=== PATIENT | male | born 1925 | race Caucasian/White ===

== ENCOUNTER 2016-11-05 11:12 | Inpatient (IN) | payer OTHER ==
--- NOTE | 2016-11-05 12:52 | DX ---
Right Ankle Series, 4 Views History: Pain following trauma. Findings: There is an oblique, mildly displaced fracture through the distal fibular diaphysis. Additi onally, there is a minimally displaced fracture of the medial malleolus. The ankle mortise is not wid ened. A definite posterior malleolar fracture is not seen. No radiopaque foreign body is identified. Impression: Bimalleolar fracture without widening of the ankle mortise.
--- NOTE | 2016-11-05 13:48 | EDPHY ---
H & P Stated Complaint: injured r ankle getting into car Source: Patient Exam Limitations: No limitations - Personal History Current Tetanus/Diphtheria Vaccine: Unsure Tetanus Vaccine Date: UNKNOWN - Medical/Surgical History Hx Asthma: No Hx Chronic Respiratory Disease: No Hx Diabetes: Yes Hx Cardiac Disease: Yes Hx Renal Disease: No Hx Cirrhosis: No Hx Alcoholism: No Hx HIV/AIDS: No Hx Splenectomy or Spleen Trauma: No Other PMH: cardiac stents/gout/appy/choly/hernias. HTN . blind in left eye. PE , prostate cancer, radiation - Family History Significant Family History: No pertinent family hx - Social History Smoking Status: Former smoker Time Seen by Provider: 11/05/16 13:18 HPI/ROS: CHIEF COMPLAINT: right ankle pain HISTORY OF PRESENT ILLNESS: 89-year-old male presents to the emergency department by ambulance with right ankle pain. Patient was getting into his daughter's car when his right ankle buckled. Patient states his daughter's car is elevated, he always kicks his left leg to get into the car, today after he kicked his left leg up his right leg buckled. He denies previous injury to this ankle, is unable to bear weight due to pain. Denies head strike, no neck pain, no numbness or tingling to this leg, denies other injuries. . REVIEW OF SYSTEMS: A comprehensive 10 point review of systems is otherwise negative aside from elements mentioned in the history of present illness. (Bharti Davies) - Physical Exam Exam: Physical Exam Gen: Alert and Oriented, NAD HEENT: moist mucous membranes NECK: No C-spine tenderness CV: regular rate and regular rhythm PULM: CTAB, no wheezes ABDOMEN: soft, non tender to palpation, BS present BACK: Nontender NEURO: Neurologically grossly intact EXTREMITIES: Right ankle with diffuse swelling, tenderness to palpation medially and laterally, 2+ pedal pulses, sensation intact to light touch, no tenderness to base of 5th metatarsal, no proximal fibula tenderness SKIN: no rash or break in skin on exposed skin PSYCH: answers questions appropriately. (Bharti Davies) Constitutional: Initial Vital Signs Temperature (C) 36.3 C 11/05/16 11:24 Heart Rate 75 11/05/16 11:24 Respiratory Rate 16 11/05/16 11:24 Blood Pressure 170/69 H 11/05/16 11:24 O2 Sat (%) 92 11/05/16 11:24 O2 Delivery Mode Room Air Allergies/Adverse Reactions: erythromycin base [From E-Mycin] Allergy (Intermediate, Verified 11/05/16 11:19) Diarrhea Home Medications: Medication Instructions Recorded Allopurinol [Allopurinol 300 MG 300 mg PO DAILY 09/13/16 (RX)] Carboxymethylcellulose 0.5% 1 drops EACHEYE Q2 PRN 09/13/16 [Refresh Plus Drops 0.5%] Hydroxyurea [Hydrea 500 mg (*)] 500 mg PO DAILY@1730 09/13/16 Ketorolac 0.5% [Acular 0.5% Opht 1 drop RTEYE TID 09/13/16 Drops (*)] Losartan Potassium [Cozaar 50 mg 50 mg PO BID 09/13/16 (*)] Melatonin [Melatonin 1 mg] 1 mg PO HS 09/13/16 Metoprolol Tartrate [Lopressor 50 75 mg PO BID 09/13/16 mg (*)] Mineral Oil/Petrolatum,White 1 bakari EACHEYE HS 09/13/16 [Genteal Pm Ointment] Sennosides/Docusate Sodium 2 each PO DAILY@1730 09/13/16 [Senokot-S] amLODIPine BESYLATE [Norvasc 2.5 2.5 mg PO BID 09/13/16 mg (*)] cycloSPORINE 0.05% [Restasis Opht 1 drop EACHEYE BID 09/13/16 Drops(*)] lamOTRIGine [Lamictal] 200 mg PO BID 09/13/16 prednisoLONE ACET 1% [Pred Forte 1 drops RTEYE Q4HRS WHILE AWAKE 09/13/16 1% (*)] Psyllium Husk (with Sugar) 1 each PO DAILY 11/05/16 [Metamucil Packet] Tretinoin 0.025% Cream 1 bakari TP HS PRN 11/05/16 Medical Decision Making - Diagnostics Imaging: Right ankle x-ray independently reviewed by me- Impression: Bimalleolar fracture without widening of the ankle mortise. Dictated By: Lavelle Steele MD (Bharti Davies) Procedures: A 3 way Ortho Glass was applied. After application of the splint, I returned and re-examined the patient. The splint was adequately immobilizing the joint. The patients circulation and sensation were intact distal to the splint. (Bharti Davies) ED Course/Re-evaluation: 89-year-old male with bimalleolar right ankle fracture. Patient has been placed in a splint. He is going to be admitted to the hospitalist for physical therapy and occupational therapy. Patient has an unsteady gait and I do not feel comfortable sending him home as he uses a walker at home. Patient will be hospitalized for PT and OT and likely subacute rehab facility. I have spoken with Dr. Matias Ly who accepts this admission. I have consulted with Orthopedics and spoken with Matilde Cullen about this patient. She reports she will look at the x-ray and decided they will consult on the patient in the emergency department or if they will see him outpatient. ( Bharti Davies) - Data Points Medications Given: Discontinued Medications Sodium Chloride (Ns) 500 mls @ 0 mls/hr IV ONCE ONE PRN Reason: As Directed Stop: 11/07/16 10:31 Last Admin: 11/07/16 09:00 Dose: 500 mls Pneumococcal 13-Valent Conj Vacc (Prevnar 13 Syringe) 0.5 ml IM .ONCE ONE Stop: 11/06/16 17:55 Last Admin: 11/06/16 20:37 Dose: 0.5 ml Prednisolone Acetate (Pred Forte 1%) 1 drops RTEYE Q4HRS WHILE AWAKE TOMMY Stop: 05/04/17 17:59 Last Admin: 11/06/16 12:05 Dose: Not Given Departure - Departure Disposition: [facility] Inpatient Acute Clinical Impression: Bimalleolar fracture of right ankle Condition: Fair
[2016-11-05] MEDS ORDERED: ACETAMINOPHEN 325 MG TAB ONE (16:50)
[2016-11-05] MEDS ORDERED: ZOLPIDEM TARTRATE 5 MG TAB PO PRN (16:51)
[2016-11-05] MEDS ORDERED: ACETAMINOPHEN 325 MG TAB PO PRN (16:51)
[2016-11-05] MEDS ORDERED: ONDANSETRON DISINTEGRATING 4 MG TAB PO PRN (16:51)
[2016-11-05] MEDS ORDERED: ONDANSETRON 4 MG/2 ML VIAL IVP PRN (16:51)
[2016-11-05] MEDS ORDERED: IBUPROFEN 200 MG TAB PO PRN (16:51)
[2016-11-05] MEDS ORDERED: CARBOXYMETHYLCELLULOSE 0.5% 0.4 ML DROPERETTE EACHEYE PRN (16:54)
[2016-11-05] MEDS ORDERED: TRETINOIN 0.025% TP PRN (16:54)
--- NOTE | 2016-11-05 16:57 | PDGENHP ---
History and Physical History and Physical: HISTORY AND PHYSICAL ADMISSION NOTE CC: right ankle pain after a fall HISTORY: This gentleman who has a history of gait instability and uses a walker was stepping into his daughter's van when he lost balance and fell out of the van twisting his right ankle. He had immediate pain in the right ankle was unable to bear weight or get up so paramedics were called and he was transported to the ER. He has been diagnosed with bimalleolar fracture. There was no lightheadedness dizziness stroke-like symptoms cardiac symptoms or other symptoms of illness at the time of his fall. He has not been feeling sick or ill with fevers or any other acute abnormalities lately. 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 FAMILY MEDICAL HISTORY: no related family medical history of concern at this time SOCIAL HISTORY: lives with his in a private home that requires at least 5 or 6 steps to get into the house Former smoker No alcohol use MEDICATIONS: these have been reconciled by the pharmacist in the electronic health record, I reviewed the list and ordered appropriate medicines at this time PHYSICAL EXAMINATION: Vital Signs: stable without fever Examination: General: alert, oriented, good mentation, relaxed Skin: warm, dry, good color, no rash HEENT: normal Neck: no mass or jvd Resps: relaxed Lungs: clear breath sounds Heart: regular, no murmur Abdomen: soft, nondistended, nontender, +BS, no mass Upper Extremities: normal Lower Extremities: his right foot and ankle are in a brace, the toes are warm with good color and capillary refill and sensation and he can wiggle them ; otherwise extremities show no edema, warm No Bleeding or bruising Neurologic: normal speech/language, normal coding director, no focal weakness IV site: looks normal RADIOLOGY STUDIES, I have personally reviewed the images and reviewed with the radiologist: bimalleolar fracture of the right ankle ASSESSMENT: # bimalleolar fracture of the right ankle # gait instability # Possible osteoporosis PLANS: - admission to hospital inpatient is patient will not be safe for home independent ambulation within 2 days - Dr. Cullen from Orthopedics has been notified by the ER the patient's admission - will way from recommendations from Dr. Cullen regarding management, for now will have the patient nonweightbearing on that right foot -Fall risk precaution measures -DVT prophylaxis measures - suspect he will need residential facility rehab
[2016-11-05] MEDS ORDERED: oxyCODONE IR 5 MG TAB ONE (17:54)
[2016-11-05] MEDS: oxyCODONE IR 5 MG TAB PO PRN ×2 (17:55→22:05)
[2016-11-05] MEDS: SENNOSIDES/DOCUSATE SODIUM TAB PO SCH (18:33)
[2016-11-05] MEDS: HYDROXYUREA 500 MG CAP PO SCH (18:33)
[2016-11-05] MEDS: prednisoLONE ACET 1% 5 ML OPHT.BTL RTEYE SCH ×2 (18:37→22:02)
[2016-11-05] MEDS: LOSARTAN POTASSIUM 50 MG TAB PO SCH (21:59)
[2016-11-05] MEDS: CYCLOSPORINE 0.05% 1 EACH BOX EACHEYE SCH (21:59)
[2016-11-05] MEDS: lamoTRIgine 100 MG TAB PO SCH (21:59)
[2016-11-05] MEDS: METOPROLOL TARTRATE 50 MG TAB PO SCH (22:00)
[2016-11-05] MEDS: MELATONIN 3 MG TAB PO SCH (22:00)
[2016-11-05] MEDS: PETROLATUM WHITE EACHEYE SCH (22:01)
[2016-11-05] MEDS: MINERAL OIL EACHEYE SCH (22:01)
[2016-11-05] MEDS: KETOROLAC 0.5% 5 ML OPHT.BTL RTEYE SCH (22:02)
[2016-11-06] MEDS: oxyCODONE IR 5 MG TAB PO PRN ×7 (01:56→20:34)
[2016-11-06 04:51] LABS: % IMMATURE GRANULYOCYTES 0.2 % (0.0-1.1); ABSOLUTE IMMATURE GRANULOCYTES 0.01 10^3/uL (0.00-0.10); ADD DIFF? NO; ADD MORPH? NO; ADD SCAN? NO; ATYPICAL LYMPHOCYTE FLAG 10 (0-99); FRAGMENT RBC FLAG 0 (0-99); HEMOGLOBIN 8.3 g/dL (13.7-17.5); LEFT SHIFT FLG 0 (0-99); LIPEMIA HEMOLYSIS FLAG 80 (0-99); MEAN CELL HEMOGLOBIN 28.8 pg (27.9-34.1); MEAN CELL HEMOGLOBIN CONCENTR. 30.7 g/dL (32.4-36.7); MEAN CELL VOLUME 93.8 fL (81.5-99.8); PLATELET CLUMPS FLAG 30 (0-99); PLATELET COUNT 144 10^3/uL (150-400); RED BLOOD CELL COUNT 2.88 10^6/uL (4.40-6.38); RED CELL DISTRIBUTION WIDTH 15.7 % (11.5-15.2)
[2016-11-06 05:17] LABS: ANION GAP 9 mEq/L (8-16); CALCIUM 8.7 mg/dL (8.5-10.4); CARBON DIOXIDE 25 mEq/l (22-31); CHLORIDE 107 mEq/L (97-110); GLOMERULAR FILTRATION RATE > 60; GLUCOSE 99 mg/dL (70-100); POTASSIUM 4.4 mEq/L (3.5-5.2); SODIUM 141 mEq/L (134-144)
[2016-11-06] MEDS: prednisoLONE ACET 1% 5 ML OPHT.BTL RTEYE SCH ×2 (06:03→12:05)
[2016-11-06] MEDS: ALLOPURINOL 300 MG TAB PO SCH (09:55)
[2016-11-06] MEDS: lamoTRIgine 100 MG TAB PO SCH ×2 (09:55→20:34)
[2016-11-06] MEDS: ENOXAPARIN 40 MG/0.4 ML SYR SC SCH (09:55)
[2016-11-06] MEDS: PSYLLIUM METAMUCIL 1 PKT PO SCH (09:55)
[2016-11-06] MEDS: KETOROLAC 0.5% 5 ML OPHT.BTL RTEYE SCH ×3 (09:55→20:43)
[2016-11-06] MEDS: LOSARTAN POTASSIUM 50 MG TAB PO SCH ×2 (09:58→20:37)
[2016-11-06] MEDS: CYCLOSPORINE 0.05% 1 EACH BOX EACHEYE SCH ×2 (09:58→20:42)
[2016-11-06] MEDS: METOPROLOL TARTRATE 50 MG TAB PO SCH ×2 (09:59→20:34)
[2016-11-06] MEDS: PREDNISOLONE ACET 1% RTEYE SCH ×4 (10:10→21:45)
--- NOTE | 2016-11-06 10:32 | GCON ---
[f rep st] CONSULTATION ORTHOPEDIC CONSULTATION. REASON FOR CONSULTATION: Evaluation of a right ankle fracture. HISTORY: The patient is an 89-year-old male with vision problems who was admitted for by ED for admit to a SNF, sustained a fall involving his right lower extremity. Has pain with walking. Denies any other injuries. Denies any numbness or tingling. PAST MEDICAL HISTORY: Please see H and P. PE:Pt pleasant and cooperative with exam. RLE:in splint, BCR and NVI, LABS: The patient has a low hematocrit. X-rays were reviewed, which show a minimally displaced right lateral malleolus fracture and a questionable medial malleolus fracture. ASSESSMENT AND PLAN: The patient is an 89-year-old male with a right bimalleolar ankle fracture, minimally displaced. With the patient's age and comorbidities, would recommend proceeding with nonoperative intervention. Would treat the patient with a splint. He can follow up in the orthopedic clinic in 1-2 weeks. /[id number]/MODL MTDD
--- NOTE | 2016-11-06 15:01 | HOSPPROG ---
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 *Meningioma *Known a 7 x 11 cm adrenal mass on the left Subjective: pain well controlled Objective: Vital Signs Temp Pulse Resp BP Pulse Ox 37.0 C 73 16 103/45 L 92 11/06/16 12:14 11/06/16 12:14 11/06/16 12:14 11/06/16 12:14 11/06/16 12:14 Laboratory Results 11/06/16 04:35 11/06/16 04:35 11/05/16 11/06/16 11/07/16 05:59 05:59 05:59 Intake Total 200 150 Output Total 50 100 Balance 150 50 - Physical Exam Constitutional: no apparent distress, appears nourished, not in pain Ears, Nose, Mouth, Throat: moist mucous membranes Cardiovascular: regular rate and rhythym Respiratory: no respiratory distress, no rales or rhonchi, clear to auscultation Gastrointestinal: normoactive bowel sounds, soft, non-tender abdomen, no palpable masses Skin: warm Musculoskeletal: other ( right ankle splinted) Neurologic: AAOx3 Psychiatric: interacting appropriately, not anxious, not encephalopathic, thought process linear ICD10 Worksheet Patient Problems: Problems Problem Status Diagnosed Acute renal insufficiency Acute Bimalleolar fracture of right ankle Acute Vomiting Acute Hyphema Acute 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
[2016-11-06] MEDS: HYDROXYUREA 500 MG CAP PO SCH (16:51)
[2016-11-06] MEDS: SENNOSIDES/DOCUSATE SODIUM TAB PO SCH (16:52)
[2016-11-06] MEDS ORDERED: PNEUMOC 13-VAL CONJ-DIP CRM/PF 0.5 ML SYR IM ONE ×2 (17:54→20:31)
[2016-11-06] MEDS: MELATONIN 3 MG TAB PO SCH (20:36)
[2016-11-06] MEDS: PETROLATUM WHITE EACHEYE SCH (20:42)
[2016-11-06] MEDS: MINERAL OIL EACHEYE SCH (20:42)
[2016-11-07 05:05] LABS: % IMMATURE GRANULYOCYTES 0.3 % (0.0-1.1); ABSOLUTE IMMATURE GRANULOCYTES 0.02 10^3/uL (0.00-0.10); ADD DIFF? NO; ADD MORPH? NO; ADD SCAN? NO; ATYPICAL LYMPHOCYTE FLAG 0 (0-99); FRAGMENT RBC FLAG 0 (0-99); HEMATOCRIT 26.4 % (40.0-51.0); HEMOGLOBIN 8.1 g/dL (13.7-17.5); LEFT SHIFT FLG 0 (0-99); LIPEMIA HEMOLYSIS FLAG 80 (0-99); MEAN CELL HEMOGLOBIN CONCENTR. 30.7 g/dL (32.4-36.7); MEAN CELL VOLUME 94.6 fL (81.5-99.8); MEAN PLATELET VOLUME 9.2 fL (8.7-11.7); PLATELET CLUMPS FLAG 10 (0-99); PLATELET COUNT 157 10^3/uL (150-400); RED BLOOD CELL COUNT 2.79 10^6/uL (4.40-6.38); RED CELL DISTRIBUTION WIDTH 15.7 % (11.5-15.2)
[2016-11-07] MEDS: oxyCODONE IR 5 MG TAB PO PRN ×3 (05:09→18:20)
[2016-11-07] MEDS: PREDNISOLONE ACET 1% RTEYE SCH ×5 (05:09→22:13)
[2016-11-07] MEDS ORDERED: CANN-EASE 2 GM TUBE TP ONE (05:17)
[2016-11-07 05:24] LABS: ALANINE AMINOTRANSFERASE 26 IU/L (21-72); ALBUMIN 3.1 g/dL (3.5-5.0); ALKALINE PHOSPHATASE 108 IU/L (38-126); ANION GAP 8 mEq/L (8-16); ASPARTATE AMINOTRANSFERASE 30 IU/L (17-59); BILIRUBIN,TOTAL 0.3 mg/dL (0.1-1.4); CALCIUM 8.4 mg/dL (8.5-10.4); CARBON DIOXIDE 23 mEq/l (22-31); CHLORIDE 107 mEq/L (97-110); GLOMERULAR FILTRATION RATE > 60; GLUCOSE 112 mg/dL (70-100); POTASSIUM 4.4 mEq/L (3.5-5.2); SODIUM 138 mEq/L (134-144); TOTAL PROTEIN 5.7 g/dL (6.3-8.2)
[2016-11-07] MEDS: PSYLLIUM METAMUCIL 1 PKT PO SCH (08:14)
[2016-11-07] MEDS: ENOXAPARIN 40 MG/0.4 ML SYR SC SCH (08:14)
[2016-11-07] MEDS: lamoTRIgine 100 MG TAB PO SCH ×2 (08:15→22:09)
[2016-11-07] MEDS: ALLOPURINOL 300 MG TAB PO SCH (08:15)
[2016-11-07] MEDS: METOPROLOL TARTRATE 50 MG TAB PO SCH ×2 (08:16→22:10)
[2016-11-07] MEDS: LOSARTAN POTASSIUM 50 MG TAB PO SCH ×2 (08:16→22:07)
[2016-11-07] MEDS: KETOROLAC 0.5% 5 ML OPHT.BTL RTEYE SCH ×3 (08:18→22:14)
[2016-11-07] MEDS: CYCLOSPORINE 0.05% 1 EACH BOX EACHEYE SCH ×2 (08:18→22:14)
[2016-11-07] MEDS ORDERED: NS 500 ML IV ONE (10:30)
[2016-11-07 15:33] VITALS: RESP 16
--- NOTE | 2016-11-07 15:57 | HOSPPROG ---
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 *Meningioma *Known a 7 x 11 cm adrenal mass on the left Subjective: no new complaints Objective: Vital Signs Temp Pulse Resp BP Pulse Ox 36.9 C 84 16 156/58 H 92 11/07/16 15:32 11/07/16 15:32 11/07/16 15:32 11/07/16 15:32 11/07/16 15:32 Laboratory Results 11/07/16 04:43 11/07/16 04:43 11/06/16 11/07/16 11/08/16 05:59 05:59 05:59 Intake Total 200 550 500 Output Total 50 375 Balance 150 175 500 - Physical Exam Constitutional: no apparent distress, appears nourished, not in pain Eyes: anicteric sclera, EOMI Ears, Nose, Mouth, Throat: moist mucous membranes, hearing normal, ears appear normal Cardiovascular: regular rate and rhythym, no murmur, rub, or gallop Respiratory: no respiratory distress Musculoskeletal: other ( right leg splinted) Neurologic: AAOx3 Psychiatric: interacting appropriately, not anxious, not encephalopathic, thought process linear ICD10 Worksheet Patient Problems: Problems Problem Status Diagnosed Acute renal insufficiency Acute Bimalleolar fracture of right ankle Acute Vomiting Acute Hyphema Acute 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
[2016-11-07 16:49] LABS: % SATURATION 5 % (20-55); TOTAL IRON BINDING CAPACITY 304 ug/dL (260-490)
[2016-11-07 17:16] LABS: FERRITIN - BCH 19.9 ng/mL (17.9-464.0)
[2016-11-07] MEDS: HYDROXYUREA 500 MG CAP PO SCH (18:06)
[2016-11-07] MEDS: SENNOSIDES/DOCUSATE SODIUM TAB PO SCH (18:07)
[2016-11-07] MEDS: MELATONIN 3 MG TAB PO SCH (22:10)
[2016-11-07] MEDS: MINERAL OIL EACHEYE SCH (22:14)
[2016-11-07] MEDS: PETROLATUM WHITE EACHEYE SCH (22:14)
[2016-11-08 05:17] LABS: % IMMATURE GRANULYOCYTES 0.3 % (0.0-1.1); ABSOLUTE IMMATURE GRANULOCYTES 0.02 10^3/uL (0.00-0.10); ADD DIFF? NO; ADD MORPH? NO; ADD SCAN? NO; ATYPICAL LYMPHOCYTE FLAG 0 (0-99); FRAGMENT RBC FLAG 0 (0-99); HEMATOCRIT 24.6 % (40.0-51.0); HEMOGLOBIN 7.4 g/dL (13.7-17.5); LEFT SHIFT FLG 0 (0-99); LIPEMIA HEMOLYSIS FLAG 80 (0-99); MEAN CELL HEMOGLOBIN 28.6 pg (27.9-34.1); MEAN CELL HEMOGLOBIN CONCENTR. 30.1 g/dL (32.4-36.7); PLATELET CLUMPS FLAG 0 (0-99); PLATELET COUNT 142 10^3/uL (150-400); RED BLOOD CELL COUNT 2.59 10^6/uL (4.40-6.38); RED CELL DISTRIBUTION WIDTH 15.9 % (11.5-15.2)
[2016-11-08 05:20] LABS: ANION GAP 6 mEq/L (8-16); CALCIUM 8.6 mg/dL (8.5-10.4); CARBON DIOXIDE 26 mEq/l (22-31); CHLORIDE 108 mEq/L (97-110); GLOMERULAR FILTRATION RATE > 60; GLUCOSE 109 mg/dL (70-100); POTASSIUM 4.6 mEq/L (3.5-5.2); SODIUM 140 mEq/L (134-144)
[2016-11-08] MEDS: PREDNISOLONE ACET 1% RTEYE SCH ×5 (05:50→20:58)
[2016-11-08] MEDS: ALLOPURINOL 300 MG TAB PO SCH (08:55)
[2016-11-08] MEDS: lamoTRIgine 100 MG TAB PO SCH ×2 (08:55→20:28)
[2016-11-08] MEDS: ENOXAPARIN 40 MG/0.4 ML SYR SC SCH (08:56)
[2016-11-08] MEDS: CYCLOSPORINE 0.05% 1 EACH BOX EACHEYE SCH ×2 (08:56→20:23)
[2016-11-08] MEDS: PSYLLIUM METAMUCIL 1 PKT PO SCH (08:56)
[2016-11-08] MEDS: KETOROLAC 0.5% 5 ML OPHT.BTL RTEYE SCH ×3 (08:56→20:41)
[2016-11-08] MEDS: METOPROLOL TARTRATE 50 MG TAB PO SCH ×2 (08:59→20:24)
[2016-11-08] MEDS: LOSARTAN POTASSIUM 50 MG TAB PO SCH ×2 (09:00→20:27)
[2016-11-08] MEDS ORDERED: diphenhydrAMINE 25 MG CAP PO PRN (09:57)
[2016-11-08] MEDS: CETIRIZINE 10 MG TAB PO SCH (11:47)
[2016-11-08] MEDS: oxyCODONE IR 5 MG TAB PO PRN ×2 (11:47→20:59)
[2016-11-08] MEDS: FLUTICASONE NASAL 120 SPRAYS/16 GM MDI EACHNARE SCH (11:48)
[2016-11-08 14:14] LABS: COLOR YELLOW; LEUKOCYTE ESTERASE,URINE NEGATIVE (NEGATIVE); NITRITE,URINE NEGATIVE (NEGATIVE)
--- NOTE | 2016-11-08 16:32 | HOSPPROG ---
Hospitalist Progress Note Assessment/Plan: 89 yo M pw fall and resultant right ankle fracture # right ankle fx: evaluated by ortho and felt to be non operative, patient to be NWB on that side. Given his general deconditioning and baseline gait instability this has led to his being unsafe to ambulate without significant assistance. Will need pt/ot and snf after dc # anemia: has had fairly significant decline in the last several months, stable since admission w/o e/o bleeding. Iron studies c/w iron deficiency, would recommend colonoscopy as an OP if he is amenable, supplemental iron. # deconditioning: with generalized decline and difficulty ambulating, will need snf # h/o PE/DVT: s/p IVC filter, felt to be poor candidate for AC # acute on chronic respiratory failure: patient notes that at baseline he uses oxygen at home "as needed" and at night, currently in the low 90s on 2L, worse in the setting of immobility and atelectasis # chronic copd: without e/o exacerbation at this time # chronic medical issues: hx of CAD, gout, HTN, meningioma, prostate cancer # adrenal mass: stable # dispo: IP status, patient will need snf Patient new to my care. Old records reviewed and summarized as above. Further history obtained from patients daughter on the phone. Care plan reviewed with CM. Subjective: no signficant overnight events, patient currently feeling a bit better though still is unable to walk independently given inability to bear weight on right ankle Objective: Vital Signs Temp Pulse Resp BP Pulse Ox 36.8 C 70 16 109/52 L 91 L 11/08/16 15:19 11/08/16 15:19 11/08/16 15:19 11/08/16 15:19 11/08/16 15:19 Laboratory Results 11/08/16 04:51 11/08/16 04:51 11/07/16 11/08/16 11/09/16 05:59 05:59 05:59 Intake Total 550 1300 500 Output Total 375 500 200 Balance 175 800 300 awake alert nad anicteric, left eye cloudy and with ptosis op clear rrr no mrg cta soft nt nd no cce warm dry well perfused oriented appropriate - Time Spent With Patient Time Spent with Patient: greater than 35 minutes Time Spent with Patient: Greater than 35 minutes spent on this patients care, greater than 50% of time spent counseling, educating, and coordinating care regarding the above mentioned plan. 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
[2016-11-08] MEDS: SENNOSIDES/DOCUSATE SODIUM TAB PO SCH (16:44)
[2016-11-08] MEDS: HYDROXYUREA 500 MG CAP PO SCH (16:44)
[2016-11-08] MEDS: MELATONIN 3 MG TAB PO SCH (20:27)
[2016-11-09] MEDS: MINERAL OIL EACHEYE SCH (01:11)
[2016-11-09] MEDS: PETROLATUM WHITE EACHEYE SCH (01:11)
[2016-11-09 06:54] LABS: % IMMATURE GRANULYOCYTES 0.3 % (0.0-1.1); ABSOLUTE IMMATURE GRANULOCYTES 0.02 10^3/uL (0.00-0.10); ADD DIFF? NO; ADD MORPH? YES; ADD SCAN? NO; ANION GAP 8 mEq/L (8-16); ATYPICAL LYMPHOCYTE FLAG 0 (0-99); CALCIUM 8.6 mg/dL (8.5-10.4); CARBON DIOXIDE 23 mEq/l (22-31); CHLORIDE 109 mEq/L (97-110); CREATININE 1.1 mg/dL (0.7-1.3); GLOMERULAR FILTRATION RATE > 60; GLUCOSE 101 mg/dL (70-100); HEMATOCRIT 25.9 % (40.0-51.0); HEMOGLOBIN 7.8 g/dL (13.7-17.5); LEFT SHIFT FLG 0 (0-99); LIPEMIA HEMOLYSIS FLAG 80 (0-99); MEAN CELL HEMOGLOBIN 28.8 pg (27.9-34.1); MEAN CELL HEMOGLOBIN CONCENTR. 30.1 g/dL (32.4-36.7); MEAN CELL VOLUME 95.6 fL (81.5-99.8); MEAN PLATELET VOLUME 9.2 fL (8.7-11.7); PLATELET CLUMPS FLAG 10 (0-99); PLATELET COUNT 191 10^3/uL (150-400); POTASSIUM 4.8 mEq/L (3.5-5.2); RED BLOOD CELL COUNT 2.71 10^6/uL (4.40-6.38); RED CELL DISTRIBUTION WIDTH 15.9 % (11.5-15.2); SODIUM 140 mEq/L (134-144)
[2016-11-09 07:06] LABS: FRAGMENT RBC FLAG 110 (0-99)
[2016-11-09] MEDS: PREDNISOLONE ACET 1% RTEYE SCH ×2 (07:32→09:08)
[2016-11-09 07:47] LABS: HYPOCHROMIA 1+; MACROCYTES 1+; PLATELET ESTIMATE ADEQUATE (ADEQ)
[2016-11-09 07:49] VITALS: BP 137/58; TEMP 98.6; O2SAT 91
[2016-11-09] MEDS: lamoTRIgine 100 MG TAB PO SCH (09:09)
[2016-11-09] MEDS: METOPROLOL TARTRATE 50 MG TAB PO SCH (09:09)
[2016-11-09] MEDS: LOSARTAN POTASSIUM 50 MG TAB PO SCH (09:10)
[2016-11-09] MEDS: CETIRIZINE 10 MG TAB PO SCH (09:10)
[2016-11-09] MEDS: ALLOPURINOL 300 MG TAB PO SCH (09:10)
[2016-11-09] MEDS: CYCLOSPORINE 0.05% 1 EACH BOX EACHEYE SCH (09:11)
[2016-11-09] MEDS: ENOXAPARIN 40 MG/0.4 ML SYR SC SCH (09:12)
[2016-11-09] MEDS: KETOROLAC 0.5% 5 ML OPHT.BTL RTEYE SCH (09:12)
[2016-11-09 09:13] VITALS: PULSE 77
[2016-11-09] MEDS: PSYLLIUM METAMUCIL 1 PKT PO SCH (09:13)
[2016-11-09] MEDS: FLUTICASONE NASAL 120 SPRAYS/16 GM MDI EACHNARE SCH (09:13)
[2016-11-09] MEDS: oxyCODONE IR 5 MG TAB PO PRN (09:21)
[2016-11-09] MEDS ORDERED: LACTULOSE 20 GM/30 ML UDCUP PO PRN (09:26)
[2016-11-09] MEDS ORDERED: MAGNESIUM HYDROXIDE 30 ML UDCUP PO PRN (09:26)
[2016-11-09] MEDS ORDERED: BISACODYL 10 MG SUPP PR PRN (09:26)
[2016-11-09] MEDS ORDERED: POLYETHYLENE GLYCOL 3350 17 GM PKT PO PRN (09:26)
--- NOTE | 2016-11-09 10:10 | PDIAF ---
- Diagnosis Code Status: Full Code - Medication Management Discharge Medications: Medications to Continue on Transfer Acetaminophen [Tylenol 325mg (*)] 650 mg PO Q4HRS PRN #0 tab 11/09/16 [Last Taken Unknown] Allopurinol [Allopurinol 300 MG (RX)] 300 mg PO DAILY #0 tab 11/09/16 [Last Taken Unknown] Carboxymethylcellulose 0.5% [Refresh Plus Drops 0.5%] 1 bakari EACHEYE Q2 PRN #0 droperette 11/09/16 [Last Taken Unknown] Cetirizine [ZyrTEC 10 mg (*)] 10 mg PO DAILY #0 tab 11/09/16 [Last Taken Unknown ] Fluticasone Nasal [Flonase Nasal [place]] 1 sprays EACHNARE DAILY #0 mdi 11/09/16 [Last Taken Unknown] Hydroxyurea [Hydrea 500 mg (*)] 500 mg PO DAILY@1730 #0 cap 11/09/16 [Last Taken Unknown] Ketorolac 0.5% [Acular 0.5% Opht Drops (*)] 1 drops RTEYE TID #0 opht.btl [Last Taken Unknown] Losartan Potassium [Cozaar 50 mg (*)] 50 mg PO BID #0 tab 11/09/16 [Last Taken Unknown] Melatonin [Melatonin 3 MG (*)] 1.5 mg PO HS #0 tab 11/09/16 [Last Taken Unknown] Metoprolol Tartrate [Lopressor 50 mg (*)] 75 mg PO BID #0 tab 11/09/16 [Last Taken Unknown] Mineral Oil/Petrolatum,White [Genteal Pm Ointment] 1 bakari EACHEYE HS 11/09/16 [ Last Taken Unknown] Ondansetron Odt [Zofran Odt 4 mg (*)] 4 mg PO Q4HRS PRN #0 tab 11/09/16 [Last Taken Unknown] Psyllium Seed [Metamucil (*)] 1 each PO DAILY #0 pkt 11/09/16 [Last Taken Unknown] Sennosides/Docusate Sodium [Senokot-S] 1 - 2 tab PO BID #0 tab 11/09/16 [Last Taken Unknown] Sennosides/Docusate Sodium [Senokot-S] 2 tab PO DAILY@1730 #0 tab 11/09/16 [ Last Taken Unknown] Tretinoin 0.025% Cream 1 bakari TP HS PRN 11/09/16 [Last Taken Unknown] Zolpidem Tartrate [Ambien 5MG (*)] 5 mg PO HS PRN #0 tab 11/09/16 [Last Taken Unknown] amLODIPine BESYLATE [Norvasc 2.5 mg (*)] 2.5 mg PO BID #0 tab 11/09/16 [Last Taken Unknown] cycloSPORINE 0.05% [Restasis Opht Drops(*)] 1 drop EACHEYE BID #0 box 11/09/16 [ Last Taken Unknown] diphenhydrAMINE [Benadryl 25 MG (*)] 25 mg PO HS PRN #0 cap 11/09/16 [Last Taken Unknown] lamoTRIgine [LamICTAL 100 MG (*)] 200 mg PO BID #0 tab 11/09/16 [Last Taken Unknown] oxyCODONE IR [Oxycodone Ir (*)] 5 - 10 mg PO Q3HRS PRN #0 tab 11/09/16 [Last Taken Unknown] prednisoLONE ACET 1% [Pred Forte 1% (*)] 0 drops RTEYE Q4HRS WHILE AWAKE #0 opht.btl 11/09/16 [Last Taken Unknown] Discharge Medications: Refer to the Discharge Home Medication list for PRN reason. - Orders Services needed: Registered Nurse, Certified Litigation Paralegal, Physical Therapy, Occupational Therapy Diet Recommendation: no restrictions on diet Activity/Weight Bearing Restrictions: Non weight bearing on right ankle until follow up with orthopedics - Labs/Radiology BMP Date: 11/12/16 CBC Date: 11/12/16 - Follow Up Care Current Providers and Referrals: Margarito Cullen MD [Medical Doctor] - (follow up 1-2 weeks) Elisabeth Maguire MD [Primary Care Provider] -
--- NOTE | 2016-11-09 10:10 | PDDCSUM ---
Discharge Summary Discharge Summary: Dates of service 11/05-11/09/16 Discharge dx: # right ankle fracture # acute on chronic anemia # gait instability/deconditioning # chronic copd # h/o PE/DVT # left eye blindness Hospital course by problem: # right ankle fx: evaluated by ortho and felt to be non operative, patient to be NWB on that side. cont pt/ot at snf # anemia: c/w iron deficiency and lower than baseline w/o e/o bleeding. Iron studies c/w iron deficiency, would recommend colonoscopy as an OP if he is amenable # deconditioning: with generalized decline and difficulty ambulating, will need snf # h/o PE/DVT: s/p IVC filter, felt to be poor candidate for AC # acute on chronic respiratory failure: continues on 2L of o2, he previously was intermittently not compliant with oxygen # chronic copd: without e/o exacerbation at this time # chronic medical issues: hx of CAD, gout, HTN, meningioma, prostate cancer # adrenal mass: stable Dc to snf F/u with ortho and pcp after dc from snf meds: see EHR > 35 min spent in dc of patient, more than half in face to face evaluation
[2016-11-09] MEDS ORDERED: SENNOSIDES/DOCUSATE SODIUM TAB PO SCH (21:00)
== END 2016-11-09 14:13 | DRG 562 ==
LOC: EDUNIT# → OBSVTOIN 16:51 → F3N 18:01
PROVIDERS: ADMIT Internal Medicine; ATTEND Internal Medicine
PROC: 2W3QX1Z Immobilization of Right Lower Leg using Splint (ICD-10-PCS; principal; 2016-11-05)
DX: S82.841A Displaced bimalleolar fracture of right lower leg, initial encounter for closed fracture (principal); J96.20 Acute and chronic respiratory failure, unspecified whether with hypoxia or hypercapnia; J44.9 Chronic obstructive pulmonary disease, unspecified; I25.10 Atherosclerotic heart disease of native coronary artery without angina pectoris; D53.9 Nutritional anemia, unspecified; H54.42 Blindness, left eye, normal vision right eye; V48.4XXA Person boarding or alighting a car injured in noncollision transport accident, initial encounter; Z85.46 Personal history of malignant neoplasm of prostate; Z86.718 Personal history of other venous thrombosis and embolism; Z86.711 Personal history of pulmonary embolism; Z95.5 Presence of coronary angioplasty implant and graft; Z99.81 Dependence on supplemental oxygen
CPT/HCPCS: 97110-GO; 97161-GP; 97165-GO; 97530-GP; 97535-GO; G0009; G8978-GP-CL; G8979-GP-CK; G8987-GO-CL; G8988-GO-CK; J1650

== ENCOUNTER 2017-01-04 12:03 | Inpatient (IN) | payer OTHER ==
--- NOTE | 2017-01-04 12:05 | EDPHY ---
H & P HPI/ROS: CHIEF COMPLAINT: Chest pain, elevated troponin. HISTORY OF PRESENT ILLNESS: The patient is an 89-year-old male with a history of CAD who presents from [facility] for elevated troponin. He reports that a few times during the night he was awoken by coughing spells and chest pain. He woke up with coughing, and then had pain in his right shoulder and chest after the coughing subsided. He was able to sleep intermittently throughout the night and is unsure if the chest pain never went away. This morning at 0400 he developed epigastric pain and pain radiating from shoulder to shoulder. This pain did subside after nitroglycerin. He tried to do physical therapy but got short of breath and dizzy. Blood work was drawn. He was sent here after his Troponin returned 1.63. ASA given. He has no chest pain or shortness of breath on arrival. No dizziness, lightheadedness, nausea, vomiting, abdominal pain. REVIEW OF SYSTEMS: A complete 10-point review of systems was performed and is negative except for those items mentioned in the HPI. Past Medical/Surgical History: CAD, atherosclerosis, angina. Social History: Lives at [facility]. Physical Exam: General Appearance: Alert, pleasant Eyes: Pupils equal and round, no conjunctival pallor or injection ENT, Mouth: Mucous membranes moist Neck: Normal inspection Respiratory: Rales at both bases Cardiovascular: Regular rate and rhythm Gastrointestinal: Abdomen is soft and non-tender Neurological: A&O, nonfocal exam Skin: Warm and dry, no rash Extremities: Nontender, no pedal edema Psychiatric: Mood and affect normal Constitutional: Initial Vital Signs Temperature (C) 36.5 C 01/04/17 12:03 Heart Rate 68 01/04/17 12:03 Respiratory Rate 23 H 01/04/17 12:03 Blood Pressure 102/66 01/04/17 12:03 O2 Sat (%) 98 01/04/17 12:03 O2 Delivery Mode Room Air Allergies/Adverse Reactions: erythromycin base [From E-Mycin] Allergy (Intermediate, Verified 01/04/17 12:10) Diarrhea Home Medications: Medication Instructions Recorded Acetaminophen [Tylenol 325mg (*)] 650 mg PO Q4HRS PRN #0 tab 11/09/16 Allopurinol [Allopurinol 300 MG 300 mg PO DAILY #0 tab 11/09/16 (RX)] Fluticasone Nasal [Flonase Nasal 1 sprays EACHNARE DAILY #0 mdi 11/09/16 [place]] Psyllium Seed [Metamucil (*)] 1 each PO DAILY #0 pkt 11/09/16 cycloSPORINE 0.05% [Restasis Opht 1 drop EACHEYE BID #0 box 11/09/16 Drops(*)] lamoTRIgine [LamICTAL 100 MG (*)] 200 mg PO BID #0 tab 11/09/16 Albuterol [Proventil Neb] 3 ml IH Q6HRS PRN 01/04/17 Benzonatate [Tessalon Pearles (RX)] 100 mg PO Q8HRS 01/04/17 Carboxymethylcellulose 1% [Refresh 1 drop EACHEYE Q2HRS PRN 01/04/17 Celluvisc (*)] Ferrous Sulfate [Ferrous Sulf 325 325 mg PO BID 01/04/17 MG (*)] Herbals/Supplements -Info Only 1 ea PO DAILY 01/04/17 Hydroxyurea [Hydrea 500 mg (*)] 500 mg PO DAILY@1700 01/04/17 Ketorolac 0.5% [Acular 0.5% Opht 1 drops RTEYE TID 01/04/17 Drops (*)] Melatonin [Melatonin 3 MG (*)] 3 mg PO HS 01/04/17 Metoprolol Tartrate [Lopressor 50 75 mg PO BID 01/04/17 mg (*)] Mineral Oil/Petrolatum,White 1 bakari EACHEYE HS 01/04/17 [Genteal Pm Ointment] Nitroglycerin [Nitrostat 0.4 mg 0.4 mg SL Q5M PRN 01/04/17 (*)] Ondansetron Odt [Zofran Odt 4 mg 4 mg PO Q4HRS PRN 01/04/17 (*)] Polyethylene Glycol 3350 [Miralax 17 gm PO DAILY PRN 01/04/17 17 gm (*)] Sennosides/Docusate Sodium 2 tab PO DAILY@1700 01/04/17 [Senokot-S] Sodium Cl Nasal [Burt [place] (*)] 1 spray EACHNARE DAILY@05,,,01/04/17 Tamsulosin HCl [Flomax 0.4 MG (*)] 0.4 mg PO HS 01/04/17 guaiFENesin [Mucinex 600 MG (*)] 1,200 mg PO BID@,01/04/17 oxyCODONE IR [Oxycodone Ir (*)] 5 mg PO Q3HRS PRN 01/04/17 prednisoLONE ACET 1% [Pred Forte 1 drops RTEYE 5XD@05,10,13,18,21 01/04/17 1% (*)] Medical Decision Making - Diagnostics EKG Interpretation: EKG interpreted by me reveals first-degree AV block, left axis deviation, nonspecific T wave abnormalities. Interpretation: abnormal EKG Imaging: Chest x-ray independently reviewed by me reveals bibasilar atelectasis. ED Course/Re-evaluation: 89-year-old male with a history of CAD and angina presents via EMS for acute coronary syndrome. Stat EKG reveals no evidence of dysrhythmia or ischemia. He is not short of breath on presentation and he has no chest pain. An IV was established and labs ordered. stat EKG reveals no evidence of ischemia or dysrhythmia. Troponin elevated at 1.7. BNP 00368. Echocardiogram ordered. D-dimer elevated at 0.88. 1254: Consulted with hospitalist. Dr. Angulo accepts admission. 1256: Consulted with [facility]. They will consult on the patient. I independently viewed the patient's chest x-ray on the PACS system. My interpretation: ongoing elevated left hemidiaphragm. no acute cardiopulmonary disease. See Imaging section for radiologist report. Elevated D-dimer noted. I feel that this presentation much more likely an acute coronary syndrome rather than secondary to pulmonary embolism. CT imaging deferred. The patient was asymptomatic throughout his emergency department stay. oncology physician revealed normal sinus rhythm throughout. Differential Diagnosis: The differential diagnosis for the patient's chest pain included but was not limited to myocardial ischemia, pulmonary embolus, chest wall pain, pleural inflammation, and pulmonary infectious causes. - Data Points Laboratory Results: Laboratory Results 01/04/17 12:00 01/04/17 12:00 Medications Given: Discontinued Medications Aspirin Buffered (Aspirin Ec) 325 mg PO ONCALL ONE Stop: 01/05/17 06:01 Last Admin: 01/05/17 11:38 Dose: Not Given Diazepam (Valium) 5 mg PO ONCALL ONE Stop: 01/05/17 06:01 Last Admin: 01/05/17 11:39 Dose: Not Given Diphenhydramine HCl (Benadryl) 25 mg PO ONCALL ONE Stop: 01/05/17 06:01 Last Admin: 01/05/17 11:39 Dose: Not Given Heparin Sodium (Porcine) (Heparin Injection) 0 unit IVP PRN PRN; Protocol PRN Reason: Bolus per protocol Stop: 07/03/17 15:00 Last Admin: 01/04/17 16:12 Dose: 5,600 units Heparin Sodium (Porcine) (Heparin 50 Units/Ml (Premix)) 500 mls @ 0 mls/hr IV CONT TOMMY; Per Protocol PRN Reason: Protocol Stop: 07/03/17 15:29 Last Admin: 01/05/17 07:37 Dose: 500 mls Metoprolol Tartrate (Lopressor) 75 mg PO BID [facility] Stop: 07/03/17 20:59 Last Admin: 01/05/17 09:30 Dose: Not Given Miscellaneous Medication (Mineral Oil/Petrolatum,White [Genteal Pm Ointment]) 1 bakari EACHEYE [facility] Stop: 07/03/17 20:59 Last Admin: 01/04/17 22:05 Dose: Not Given Prasugrel (Effient) 60 mg PO ONCE ONE Stop: 01/05/17 10:55 Last Admin: 01/05/17 11:39 Dose: Not Given Departure - Departure Disposition: [facility] Acute Clinical Impression: Acute coronary syndrome Condition: Fair Report Scribed for: Zaynab Oseguera Report Scribed by: Juan Daniel Anton Date of Report: 01/04/17 Time of Report: 12:05 Physician Review and Approval Statement: 01/04/17 12:13 Portions of this note were transcribed by a back office medical assistant. I personally performed a history, physical exam, medical decision making, and confirmed accuracy of information the transcribed note.
--- NOTE | 2017-01-04 12:11 | CPEKG ---
Heart Rate: 64 RR Interval: 938 P-R Interval: 403 QRSD Interval: 98 QT Interval: 432 QTC Interval: 446 P [place]: 0 QRS [place]: -37 T Wave [place]: 97 EKG Severity - ABNORMAL ECG - EKG Impression: SINUS RHYTHM EKG Impression: FIRST DEGREE AV BLOCK EKG Impression: LEFT AXIS DEVIATION EKG Impression: NONSPECIFIC T ABNORMALITIES, ANT-LAT LEADS Electronically Signed By: Zaynab Oseguera 04-Jan-2017 13:43:52
[2017-01-04 12:24] LABS: % IMMATURE GRANULYOCYTES 0.2 % (0.0-1.1); ABSOLUTE IMMATURE GRANULOCYTES 0.01 10^3/uL (0.00-0.10); ADD DIFF? NO; ADD MORPH? YES; ADD SCAN? NO; ATYPICAL LYMPHOCYTE FLAG 10 (0-99); FRAGMENT RBC FLAG 10 (0-99); HEMATOCRIT 25.7 % (40.0-51.0); HEMOGLOBIN 7.8 g/dL (13.7-17.5); LEFT SHIFT FLG 0 (0-99); LIPEMIA HEMOLYSIS FLAG 80 (0-99); MEAN CELL HEMOGLOBIN 28.3 pg (27.9-34.1); MEAN CELL HEMOGLOBIN CONCENTR. 30.4 g/dL (32.4-36.7); MEAN CELL VOLUME 93.1 fL (81.5-99.8); MEAN PLATELET VOLUME 8.4 fL (8.7-11.7); PLATELET CLUMPS FLAG 0 (0-99); PLATELET COUNT 239 10^3/uL (150-400); RED BLOOD CELL COUNT 2.76 10^6/uL (4.40-6.38)
[2017-01-04 12:28] LABS: ANION GAP 12 mEq/L (8-16); CALCIUM 9.1 mg/dL (8.5-10.4); CARBON DIOXIDE 22 mEq/l (22-31); CHLORIDE 103 mEq/L (97-110); CREATININE 1.1 mg/dL (0.7-1.3); GLOMERULAR FILTRATION RATE > 60; GLUCOSE 116 mg/dL (70-100); POTASSIUM 4.5 mEq/L (3.5-5.2); SODIUM 137 mEq/L (134-144)
[2017-01-04 12:41] LABS: RED CELL DISTRIBUTION WIDTH 20.8 % (11.5-15.2)
[2017-01-04 13:10] LABS: HYPOCHROMIA 2+; MACROCYTES 1+; MICROCYTES 1+
[2017-01-04 13:11] LABS: PLATELET ESTIMATE ADEQUATE (ADEQ)
--- NOTE | 2017-01-04 14:16 | ECHO ---
[id number] + + [address] : : [place] [address] : : [phone] + + Adult Echocardiographic Report + ---------+ :Name: VALARIE TREJO BStudy Date: 01/04/2017 01:36 PM : : Hospital Admission Number: [id number] Locat ion: ER11: :: 1925 Gender: Male Height: 72 in : :Age: 89 yrs Race: WH,White Weight: 200 l b : :Reason For Study: evaluate cardiac function : : BSA: 2.1 mete rs2 : :History: CP, elev troponins : + ---------+ MMode/2D Measurements \T\ Calculations IVSd: 1.3 cm RVDd: 3.3 cm FS: 23.4 % Ao root diam: LVPWd: 0.99 cm LVIDd: 4.2 cm EDV(Teich): 3.7 cm LVIDs: 3.2 cm 77.7 ml ESV(Teich): 41.0 ml EF(Teich): 47.3 % LVLd ap4: 9.7 cm SV(MOD-sp4): EDV(MOD-sp4): 66.0 ml 165.0 ml LVLs ap4: 8.9 cm ESV(MOD-sp4): 99.0 ml EF(MOD-sp4): 40.0 % Normal Measurement Values: + + :LVIDd (3.5-5.7cm) IVSd (0.6-1.1cm) LVPWd (0.6-1.1cm) Aortic Root (2.0-3.7cm)Left Atrium (1.5-4.0cm): :LV Vol(d) (76-115ml) LV Vol(s) (29-48ml) Ejec Fraction (50-65%)PV Indra (0.6- 1.2m/s) TV Indra (0.4-1.0m/s) : :MV E Indra (0.8-1.0m/s)MV A Indra (0.3-1.0m/s)LVOT Indra (0.7-1.2m/s) Asc Ao Indra ( 0.9-1.8m/s) : + + Doppler Measurements \T\ Calculations MV E max indra: Ao V2 max: AI max indra: LV V1 max: 94.3 cm/sec 121.0 cm/sec 267.0 cm/sec 74.0 cm/sec MV A max indra: Ao max PG: AI max P.5 mmHg LV V1 max P.5 cm/sec 5.9 mmHg AI dec slope: 2.2 mmHg MV E/A: 2.3 167.0 cm/sec2 MV dec time: AI P1/2t: 468.3 msec 0.19 sec PA V2 max: TR max indra: 108.0 cm/sec 301.0 cm/sec PA max P.7 mmHgTR max P.2 mmHg RAP systole: 10.0 mmHg RVSP(TR): 46.2 mmHg Left Ventricle The left ventricle is normal in size. There is normal left ventricular wall thickness. Left ventricular systolic function is mild to moderately reduced. Ejection Fraction = 35-40%. Apical and mid to distal anteroseptal hypokinesis. Right Ventricle The right ventricle is normal in size and function. Atria The left atrial size is normal. Right atrial size is normal. A dilated inferior vena cava suggests increased right atrial pressure. Mitral Valve The mitral valve leaflets appear thickened, but open well. There is mild mitral annular calcification. There is no mitral valve stenosis. There is mild mitral regurgitation. Tricuspid Valve The tricuspid valve is normal in structure and function. There is no tricuspid stenosis. There is mild to moderate tricuspid regurgitation. Right ventricular systolic pressure is 46mmHg. There is Doppler evidence for mild to moderate pulmonary hypertension. Aortic Valve The aortic valve is trileaflet. There is mild aortic valve calcification. There is no aortic stenosis. Mild aortic regurgitation. Pulmonic Valve The pulmonic valve is normal in structure and function. Great Vessels The aortic root is normal size. Pericardium/Pleural There is no pericardial effusion. Conclusion A two-dimensional transthoracic echocardiogram with M-mode and Doppler was performed. Left ventricular systolic function is mild to moderately reduced. Ejection Fraction = 35-40%. Apical and mid to distal anteroseptal hypokinesis. There is mild mitral regurgitation. There is mild to moderate tricuspid regurgitation. Right ventricular systolic pressure is 46mmHg. There is Doppler evidence for mild to moderate pulmonary hypertension. Mild aortic regurgitation. Final Reading Physician: Loni Nick signed on 01/04/2017 02:15 PM Ordering Physician: TEE BUSTILLO Performed By: Liss Ramirez
[2017-01-04] MEDS ORDERED: ACETAMINOPHEN 325 MG TAB PO PRN ×3 (15:01→15:21)
[2017-01-04] MEDS ORDERED: ONDANSETRON DISINTEGRATING 4 MG TAB PO PRN ×2 (15:01→15:04)
[2017-01-04] MEDS ORDERED: ONDANSETRON 4 MG/2 ML VIAL IVP PRN (15:01)
[2017-01-04] MEDS ORDERED: HEPARIN 10,000 UNIT/10 ML MDV IVP PRN (15:01)
[2017-01-04] MEDS ORDERED: CARBOXYMETHYLCELLULOSE 1% 0.4 ML DROPERETTE EACHEYE PRN (15:04)
[2017-01-04] MEDS ORDERED: POLYETHYLENE GLYCOL 3350 17 GM PKT PO PRN (15:04)
[2017-01-04] MEDS ORDERED: TEMAZEPAM 15 MG CAP PO PRN (15:21)
--- NOTE | 2017-01-04 15:49 | GHP ---
[f rep st] HISTORY AND PHYSICAL DATE OF ADMISSION: 01/04/2017 CHIEF COMPLAINT: Chest pain, lightheaded, dizzy with an abnormal troponin. HPI: This is an 89-year-old gentleman who has a history of coronary artery disease. He had stent p laced in the circumflex in 2007 and 2012. His coronary angiogram showed widely patent vessels in De cember of this year. He actually was admitted and underwent a nuclear stress test that showed maco l function and no ischemia. Apparently he has been at [facility] recovering from a fractured ankle. He has been having a cough recently; however, today he had some epigastric pain to his shoulder wi th some lightheadedness. Blood was drawn at the assisted, and a troponin was 1.6. He was sent to the emergency room at [facility], and his troponin was repeated as 1. 7. His EKG showed no acute changes. He had increased BNP and echocardiogram today showed hypokines is of the distal anterior wall and apex which apparently is new. He denies any ongoing chest pain o r other issues. His hemoglobin is 7 which has been stable for the last few months. He denies any a ctive GI or bleeding. Apparently this has been known. He has been on ferrous sulfate. He has h ad no GI workup. In speaking to him, he has had some atypical migratory type chest pains which is d ifferent than the pain he had prior to his angiogram and stenting in 2007. He had no dye allergies with that. At 1 time, he did have a pulmonary emboli, was on Coumadin in the past. He did have constance e bleeding in his retina a year or so ago but nothing recent. He has not been on aspirin otherwise. He denies PND, orthopnea, palpitations, or syncope. HOME MEDICATIONS: No cardiac medications at this time. In the past, I had seen that he had been on beta blockers. EKG shows normal sinus rhythm with nonspecific intraventricular conduction delay without acute ische ashvin changes. PAST MEDICAL HISTORY: Includes Phil Bonnet syndrome, hyphema, pulmonary emboli. He has apparent ly a benign adrenal mass which is known. He has chronic anemia presumed iron deficient without etio logy. SOCIAL HISTORY: He has been living at [facility]. MEDICATIONS: See reconciliation form. PHYSICAL EXAMINATION: GENERAL APPEARANCE: He is resting comfortably in bed. He does appear somewh at pale but is alert and oriented x3. HEENT: Mouth, oropharynx were moist. CHEST: He had no palp able chest pain. LUNGS: Clear to auscultation. CARDIOVASCULAR: Regular rate and rhythm with a so ft systolic murmur. No JVD. HJR. ABDOMEN: Soft, nontender. MUSCULOSKELETAL: No edema. He had strong pulses in his wrists and his pedal region. ASSESSMENT: 1. Probable acute coronary syndrome. I did review his films from 2012, and he had large patent ves sels at that time and a negative nuclear stress test as recently as August 2016; however, a region al wall motion abnormality on echo most likely is new. Is undetermined time. He has been having so me atypical pains with a troponin of 1.7. He is seemingly stable at this time rhythm gibbs and hemod ynamically at this point. We discussed our options of conservative medical management versus invasi ve strategy. He has agreed to go with the invasive strategy. He does not have any allergies to dye that he knows of. He is not having any active bleeding. He was here seen with Dr. Angulo. At this point, we will begin him on beta blockers, heparinization tonight with catheterization in the m orning. 2. Anemia, probable iron deficiency from reading his past notes. The patient was to have an outpat ient workup; however, this was never undertaken. Possibly this could be done as an inpatient. 3. History of pulmonary emboli. No recent trauma or shortness of breath. The patient was on Couma din in the past. However, this was contraindicated after his retinal bleed. PLAN: Medical management tonight as patient remains stable. Will plan cardiac catheterization in t he morning with possible intervention if needed. This was all discussed with him and he understands , accepts, and wished to proceed. Consents will be signed. Further care depending on his clinical course and wishes. Case discussed with Dr. Angulo. /[id number]/MODL
[2017-01-04 16:02] LABS: INR 1.16 (0.83-1.16); PROTIME(PATIENT) 14.8 SEC (12.0-15.0)
[2017-01-04 16:03] LABS: APTT 32.3 SEC (23.0-38.0)
[2017-01-04] MEDS: HEPARIN/DEXTROSE 500 ML IV SCH (16:14)
--- NOTE | 2017-01-04 16:24 | GHP ---
[f rep st] HISTORY AND PHYSICAL DATE OF ADMISSION: 01/04/2017 CHIEF COMPLAINT: Chest pain. HISTORY: This is an 89-year-old male with a past medical history of coronary artery disease status post remote stent placement as well as PE and DVT, no longer on anticoagulation, who presents with c hest pain that has been present on and off for about the last week, but more severe this morning. T he patient notes that he has been having a dry cough that has been waking him from sleep and that he has been having issues over the last week being woken from sleep with both cough and chest pain, wh ich would be present briefly and then resolve. He denied any chronic issues with chest pain or any clear association with anything like exertion. This morning, after having a severe coughing fit enoc rnight, he again developed substernal chest pain that was present in the bilateral chest and even th e mid epigastrium. He notes that pain was severe and lasted for at least 15 minutes or more. There was some radiation to the bilateral shoulders. He was given nitroglycerin and pain resolved at wanda t point and has not returned since then. Apparently after the episode of pain, he did try to do physical therapy; but when he became dizzy, airella morrissey sent him to the ER for further evaluation, at which point he was found to have a troponin level of 1.7 and brought in for further evaluation. PAST MEDICAL HISTORY: Includes: 1. Coronary artery disease status post remote stent. 2. 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 3. Chronic anemia. 4. Chronic COPD. 5. Chronic hypoxic respiratory failure, using oxygen mostly at night. 6. Gout. 7. Hypertension. 8. Meningioma. 9. History of prostate cancer. 10. Adrenal mass. 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 FAMILY HISTORY: Denies any heart disease in the family. His sister recently at age 92. SOCIAL HISTORY: Patient is living independently currently but recently was discharged from SNF. He has a prior tobacco use history, about 12-pack years. No significant alcohol or drug use. REVIEW OF SYSTEMS: 10-point review of systems obtained and negative except as per HPI. MEDICATIONS: Extensive list. Please see the EHR. ALLERGIES: Include erythromycin. PHYSICAL EXAM: VITAL SIGNS: Reviewed and within normal limits. GENERAL APPEARANCE: Elderly man. He is awake and alert. He is in no acute distress. HEENT: Eyes: Left eye has evidence of prior damage and limited to no vision. Right eye is normal. Oropharynx is clear. CARDIOVASCULAR: RRR. No MRG. PULMONARY: CTA bilaterally to anterior exam. Normal work of breathing. ABDOMEN: Soft, nontender. Positive bowel sounds. EXTREMITIES: No clubbing, cyanosis, or edema. SKIN: Warm, dry , and well perfused. The patient is slightly pale. NEURO/PSYCH: Oriented and appropriate, pleasan t. LABORATORY DATA: Labs reviewed and significant for hemoglobin of 7.8 and hematocrit of 25.7, which are stable since October of this year. Troponin is 1.7. ProBNP is 16,100. Chest x-ray, personally reviewed and interpreted, shows bibasilar atelectasis without other acute ch anges. EKG, personally reviewed and interpreted, shows sinus rhythm, left axis deviation, and nonspecific T -wave abnormalities anterolaterally. Echocardiogram shows an EF of 35-40 and new apical and mid to distal anteroseptal hypokinesis. ASSESSMENT/PLAN: This is an 89-year-old man with a past medical history of coronary artery disease, presenting with acute coronary syndrome/non-ST elevation myocardial infarction and acute systolic h eart failure. 1. Acute coronary syndrome/non-ST elevation myocardial infarction. Troponin elevated to 1.7 with n ew wall motion abnormality on echocardiogram. No acute EKG changes noted. Care of plan was reviewe d with Dr. Preciado in cardiology at the patient's bedside; and for now, plan is for cardiac cathete rization in the morning. He will be started on a heparin drip overnight. He is currently chest bronson n-free but will have p.r.n. morphine and nitroglycerin available should it recur. 2. Acute systolic heart failure with new apical and anteroseptal hypokinesis and ejection fraction of 35% to 40% with a previously normal ejection fraction as recently as August 2016. He does not appear decompensated at this time. This is in the setting of ACS, as above. We will pursue medical management and, again, cardiac cath in the morning. 3. Iron-deficiency anemia. The patient has had now several months of fairly significant anemia wanda t has been stable. He denies any symptoms to suggest blood loss, including dark stools or hematemes is. He has not had a colonoscopy recently that he is aware of. Once his cardiac issues have been a ddressed, this could be considered during this hospitalization. 4. History of pulmonary embolus/deep venous thrombosis. The patient has had an IVC filter. He has been considered a poor anticoagulation candidate, likely secondary to bleeding in his eye. Some of this history is unclear. 5. Hyphema/blindness. 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 He is followed by a retinal specialist. 6. Prophylaxis. SCDs and heparin drip. 7. Code status. The patient was not sure but does think he has an advance directive. He is listed as full code in the hospital. This will need to be clarified. 8. Patient is new to my care. Care plan reviewed with daycare provider at patient's bedside. Old luiz rds reviewed and summary is as per HPI. /[id number]/MODL
[2017-01-04] MEDS: SENNOSIDES/DOCUSATE SODIUM TAB PO SCH (17:45)
[2017-01-04] MEDS: guaiFENesin 600 MG TAB.ER PO SCH (17:52)
[2017-01-04] MEDS: SODIUM CL NASAL 45 ML BTL EACHNARE SCH ×2 (17:52→22:04)
[2017-01-04] MEDS: HYDROXYUREA 500 MG CAP PO SCH (17:52)
[2017-01-04] MEDS: KETOROLAC 0.5% 5 ML OPHT.BTL RTEYE SCH ×2 (17:53→21:20)
[2017-01-04] MEDS: CYCLOSPORINE 0.05% 1 EACH BOX EACHEYE SCH (20:03)
[2017-01-04] MEDS: TAMSULOSIN HCL 0.4 MG CAP PO SCH (20:16)
[2017-01-04] MEDS: METOPROLOL TARTRATE 50 MG TAB PO SCH (20:17)
[2017-01-04] MEDS: MELATONIN 3 MG TAB PO SCH (20:17)
[2017-01-04] MEDS: lamoTRIgine 100 MG TAB PO SCH (20:17)
[2017-01-04] MEDS: FERROUS SULFATE 325 MG TAB PO SCH (20:18)
[2017-01-04] MEDS: prednisoLONE ACET 1% 5 ML OPHT.BTL RTEYE SCH ×2 (20:18→21:19)
[2017-01-04] MEDS ORDERED: MINERAL OIL EACHEYE SCH (21:00)
[2017-01-04] MEDS ORDERED: PETROLATUM WHITE EACHEYE SCH (21:00)
[2017-01-04] MEDS: BENZONATATE 100 MG CAP PO SCH (21:31)
[2017-01-04] MEDS: PETROLAT,WHT/MIN OIL/SOD CHL 3.5 GM OPHT.OINT EACHEYE SCH (22:02)
[2017-01-05 04:53] LABS: % IMMATURE GRANULYOCYTES 0.4 % (0.0-1.1); ABSOLUTE IMMATURE GRANULOCYTES 0.02 10^3/uL (0.00-0.10); ADD DIFF? NO; ADD MORPH? YES; ADD SCAN? NO; ATYPICAL LYMPHOCYTE FLAG 20 (0-99); FRAGMENT RBC FLAG 20 (0-99); HEMATOCRIT 24.1 % (40.0-51.0); HEMOGLOBIN 7.5 g/dL (13.7-17.5); LEFT SHIFT FLG 0 (0-99); LIPEMIA HEMOLYSIS FLAG 80 (0-99); MEAN CELL HEMOGLOBIN CONCENTR. 31.1 g/dL (32.4-36.7); MEAN CELL VOLUME 93.1 fL (81.5-99.8); MEAN PLATELET VOLUME 8.7 fL (8.7-11.7); PLATELET CLUMPS FLAG 0 (0-99); PLATELET COUNT 205 10^3/uL (150-400); RED BLOOD CELL COUNT 2.59 10^6/uL (4.40-6.38)
[2017-01-05 05:01] LABS: RED CELL DISTRIBUTION WIDTH 20.5 % (11.5-15.2)
[2017-01-05 05:35] LABS: HYPOCHROMIA 1+; MACROCYTES 2+
[2017-01-05 05:36] LABS: PLATELET ESTIMATE ADEQUATE (ADEQ)
[2017-01-05 05:38] LABS: ANION GAP 8 mEq/L (8-16); CALCIUM 8.7 mg/dL (8.5-10.4); CARBON DIOXIDE 23 mEq/l (22-31); CHLORIDE 107 mEq/L (97-110); CHOLESTEROL 86 mg/dL (140-220); CHOLESTEROL/HDL RATIO 1.87 RATIO (1.00-4.97); GLOMERULAR FILTRATION RATE > 60; GLUCOSE 112 mg/dL (70-100); HIGH DENSITY LIPOPROTEIN 46 mg/dL (40-65); LDL/HDL RATIO 0.59 RATIO (1.00-3.64); LOW DENSITY LIPOPROTEIN 27 mg/dL (80-100); MAGNESIUM 2.1 mg/dL (1.6-2.3); NON-HIGH DENSITY LIPOPROTEIN 40 mg/dL (90-129); POTASSIUM 4.3 mEq/L (3.5-5.2); SODIUM 138 mEq/L (134-144); TRIGLYCERIDE 69 mg/dL (40-150); VERY LOW DENSITY LIPOPROTEINS 13 mg/dL (8-25)
[2017-01-05 05:49] LABS: INR 1.17 (0.83-1.16); PROTIME(PATIENT) 14.9 SEC (12.0-15.0)
[2017-01-05 05:50] LABS: APTT 68.6 SEC (23.0-38.0)
[2017-01-05] MEDS ORDERED: diphenhydrAMINE 25 MG CAP PO ONE ×2 (06:00→08:55)
[2017-01-05] MEDS: prednisoLONE ACET 1% 5 ML OPHT.BTL RTEYE SCH ×5 (06:00→20:43)
[2017-01-05] MEDS ORDERED: NS 1,000 ML IV ONE (06:00)
[2017-01-05] MEDS ORDERED: ASPIRIN EC 325 MG TAB PO ONE ×2 (06:00→08:55)
[2017-01-05] MEDS ORDERED: DIAZEPAM 5 MG TAB PO ONE (06:00)
[2017-01-05] MEDS: SODIUM CL NASAL 45 ML BTL EACHNARE SCH ×4 (06:01→22:30)
[2017-01-05] MEDS: HEPARIN/DEXTROSE 500 ML IV SCH (07:37)
[2017-01-05] MEDS: FERROUS SULFATE 325 MG TAB PO SCH ×2 (07:39→20:40)
[2017-01-05] MEDS: guaiFENesin 600 MG TAB.ER PO SCH ×2 (07:39→17:44)
[2017-01-05] MEDS: BENZONATATE 100 MG CAP PO SCH ×3 (07:39→21:36)
[2017-01-05] MEDS: PSYLLIUM METAMUCIL 1 PKT PO SCH (07:40)
[2017-01-05] MEDS: ALLOPURINOL 300 MG TAB PO SCH (07:40)
[2017-01-05] MEDS ORDERED: fentaNYL 100 MCG/2 ML INJ ONE ×2 (07:46→11:29)
[2017-01-05] MEDS ORDERED: LIDOCAINE 1% 30 ML SDV ONE (07:46)
[2017-01-05] MEDS ORDERED: MIDAZOLAM 2 MG/2 ML VIAL ONE (07:47)
[2017-01-05] MEDS ORDERED: IOPAMIDOL (ISOVUE 370) 100 ML BTL IV ONE ×2 (07:47→10:11)
[2017-01-05] MEDS ORDERED: FAMOTIDINE 20 MG TAB ONE (08:55)
[2017-01-05] MEDS: METOPROLOL TARTRATE 50 MG TAB PO SCH (09:30)
[2017-01-05] MEDS: FLUTICASONE NASAL 120 SPRAYS/16 GM MDI EACHNARE SCH (10:00)
[2017-01-05] MEDS ORDERED: HEPARIN 10,000 UNIT/10 ML MDV ONE (10:10)
[2017-01-05] MEDS ORDERED: NITROGLYCERIN 1,500 MCG/15 ML VIAL MISC ONE (10:11)
[2017-01-05] MEDS ORDERED: BIVALIRUDIN 250 MG/5 ML VIAL IV ONE (10:29)
--- NOTE | 2017-01-05 10:36 | PDDXCAT ---
Diagnostic Cath Note - . Date: 01/05/17 Physician Representative: Ozzy Indication: CCC Class III and IV angina on medical treatment, other (abnormal troponins) - Procedure Access: right groin Procedure: left heart catheterization, coronary angiography, left ventriculogram - Materials Left Heart Cath size: 6F Left Heart Cath materials: standard multipack (JL4, JR4, pigtail) - Findings-Left Heart Catheterization LM: 1. normal LAD: 1. prox 90% LCX: 1. patent prox stent o/w mild irregs. 2. co-dominant RCA: 1. mild ireegs ..small co- dominant pda EDP: 25 mmhg LVEF: 1. lvef35%..anterior /apical hypokinesis Complications: non Estimated blood loss: <50ml Assessment: 1..significaant prx lad stenosis with anterio/apical wall motion abn..will get interventional consult with dr kenyon Plan: 1. 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
[2017-01-05] MEDS ORDERED: HYDROCODONE/APAP 5/325 TAB PO PRN (10:54)
[2017-01-05] MEDS ORDERED: ATROPINE SULFATE 1 MG/10 ML SYR IVP PRN (10:54)
[2017-01-05] MEDS ORDERED: PRASUGREL HCL 10 MG TAB PO ONE (10:54)
[2017-01-05] MEDS ORDERED: PRASUGREL HCL 10 MG TAB ONE (10:55)
[2017-01-05] MEDS ORDERED: NS 1,000 ML IV SCH (11:00)
--- NOTE | 2017-01-05 11:14 | CPEKG ---
Heart Rate: 65 RR Interval: 923 P-R Interval: 364 QRSD Interval: 104 QT Interval: 432 QTC Interval: 450 P [place]: 0 QRS [place]: -52 T Wave [place]: 103 EKG Severity - ABNORMAL ECG - EKG Impression: SINUS RHYTHM EKG Impression: FIRST DEGREE AV BLOCK EKG Impression: LEFT ANTERIOR FASCICULAR BLOCK EKG Impression: LOW VOLTAGE IN FRONTAL LEADS EKG Impression: CONSIDER ANTERIOR INFARCT Electronically Signed By: Sami Jerez 06-Jan-2017 13:01:19
--- NOTE | 2017-01-05 11:31 | CPIP ---
[f rep st] INVASIVE CARDIAC PROCEDURE DATE OF PROCEDURE: 01/05/2017 PROCEDURE PERFORMED: Percutaneous coronary intervention of the left anterior descending. INDICATION FOR PROCEDURE: Unstable angina/non ST elevation TN. Please refer to the diagnostic heart cardiac cath report prepared by Dr. Rodrigo Preciado. Briefly, the patient is an 89-year-old male with a history of previously documented minimal coronary atherosclerosis from a catheterization performed in 2012. He presented with new onset chest discom fort and had a modest increase in his troponin up to 1.77. Dr. Preciado performed a diagnostic cath eterization, which demonstrated moderately to severely reduced left ventricular systolic function wi th severe hypokinesis of the entire LAD territory. There was a focal 90% lesion in the proximal LAD immediately upstream from the origin of the first diagonal branch. The circumflex and RCA had nonc ritical disease. Based on the patient's clinical history and diagnostic angiography, I was asked to perform percutaneous coronary intervention of the left anterior descending. PROCEDURE IN DETAIL: The patient received intravenous Angiomax. A 6-Bulgarian JL4 guide catheter was advanced to the left main. An Intuition guidewire was advanced to the apical portion of the left anterior descending. Pre dilatation of the target lesion was perfor med using a 2.5 x 10 mm cutting balloon. A 3.5 x 16 mm Synergy stent was advanced into position cov ering the target lesion and terminating distal to the origin of the diagonal branch. The stent was deployed at high pressure. Subsequent angiograms demonstrated 0% residual stenosis in the left ante rior descending with ANURAG-3 flow. There was no plaque shift or compromise of the ostium of the firs t diagonal branch. The guidewire was withdrawn and was redirected into the diagonal branch. A 2.0 x 8 mm Emerge balloo n was then advanced over the guidewire and used to dilate the stent struts covering the ostium of th e diagonal branch. Final angiograms demonstrated 0% residual stenosis in the LAD and at the diagona l ostium, with ANURAG-3 flow in all vessels. COMPLICATIONS: None. CONCLUSION: Successful percutaneous coronary intervention of the left anterior descending using a s marilee drug coated stent. /[id number]/MODL
[2017-01-05] MEDS ORDERED: fentaNYL 100 MCG/2 ML INJ IVP PRN (11:32)
[2017-01-05] MEDS: CYCLOSPORINE 0.05% 1 EACH BOX EACHEYE SCH ×2 (12:30→20:42)
[2017-01-05] MEDS: KETOROLAC 0.5% 5 ML OPHT.BTL RTEYE SCH ×3 (12:41→21:37)
[2017-01-05] MEDS: LISINOPRIL 5 MG TAB PO SCH (14:30)
[2017-01-05] MEDS: lamoTRIgine 100 MG TAB PO SCH ×2 (14:30→20:41)
[2017-01-05] MEDS: oxyCODONE IR 5 MG TAB PO PRN (14:30)
[2017-01-05] MEDS ORDERED: GOLYTELY 4000 ML BTL PO ONE ×2 (14:46→18:00)
--- NOTE | 2017-01-05 15:05 | HOSPPROG ---
Hospitalist Progress Note Assessment/Plan: 89 yo M with hx of CAD and subacute iron deficiency anemia presenting with nstemi # nstemi/acs: with new wall motion abnormality noted on echo as well as trop elevation and found to have significant stenosis to the LAD that is now s/p stent without residual stenosis. Continued medical management, remains chest pain free. repeat ecg personally reviewed showing first degree av block/sr/ otherwise no change. # subacute iron deficiency anemia: this has been new since October and of unclear etiology. He has not had clear s/s of bleeding, is on oral iron supplementation so has been having dark stools since then. He was supposed to follow up for colonoscopy as an OP but did not do so, and so will have this done as an IP--GI has been consulted and plans for egd/colo in am # first degree av block: new, reviewed with cardiology, plan to change from metoprolol to carvedilol, continue to monitor on tele # hyphema with left eye blindness: spontaneous bleed in the past # h/o PE: not on AC as has had issues with bleeding in the past, IVC filter placed as patient had issues with AC due to above # chronic medical issues: copd, htn, gout, stable adrenal mass # dispo: IP status, will need > 48 hours stay for eval/mgmt of above Care plan reviewed with cardiology and GI--cardiology would like to proceed with evaluation of anemia while in house if possible, GI plans to proceed with this in am. Subjective: patient s/p cath today with stent to lad, doing well at this time but c/o discomfort from lying flat. reviewed plan for colonoscopy--he would like to proceed Objective: Vital Signs Temp Pulse Resp BP Pulse Ox 36.2 C 64 9 L 126/66 H 97 01/05/17 12:31 01/05/17 12:31 01/05/17 12:31 01/05/17 12:31 01/05/17 07:28 Laboratory Results 01/05/17 04:41 01/05/17 04:41 01/04/17 01/05/17 01/06/17 05:59 05:59 05:59 Intake Total 670 Output Total 225 100 Balance 445 -100 PT 14.9 SEC (12.0-15.0) 01/05/17 04:41 INR 1.17 (0.83-1.16) H 04/12/17 04:41 awake alert nad anicteric, left eye cloudy/ptosis op clear rrr no mrg cta to ant exam soft nt nd no cce warm pale well perfused oriented appropriate - Time Spent With Patient Time Spent with Patient: greater than 35 minutes Time Spent with Patient: Greater than 35 minutes spent on this patients care, greater than 50% of time spent counseling, educating, and coordinating care regarding the above mentioned plan. 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
[2017-01-05] MEDS: SENNOSIDES/DOCUSATE SODIUM TAB PO SCH (17:43)
[2017-01-05] MEDS: CARVEDILOL 6.25 MG TAB PO SCH (17:43)
[2017-01-05] MEDS: HYDROXYUREA 500 MG CAP PO SCH (17:44)
[2017-01-05] MEDS: TAMSULOSIN HCL 0.4 MG CAP PO SCH (20:40)
[2017-01-05] MEDS: MELATONIN 3 MG TAB PO SCH (20:40)
[2017-01-05] MEDS: PETROLAT,WHT/MIN OIL/SOD CHL 3.5 GM OPHT.OINT EACHEYE SCH (20:45)
[2017-01-06] MEDS: prednisoLONE ACET 1% 5 ML OPHT.BTL RTEYE SCH ×5 (04:52→20:11)
[2017-01-06] MEDS: SODIUM CL NASAL 45 ML BTL EACHNARE SCH ×4 (04:53→23:05)
[2017-01-06 05:08] LABS: % IMMATURE GRANULYOCYTES 0.5 % (0.0-1.1); ABSOLUTE IMMATURE GRANULOCYTES 0.03 10^3/uL (0.00-0.10); ADD DIFF? NO; ADD MORPH? YES; ADD SCAN? NO; ATYPICAL LYMPHOCYTE FLAG 0 (0-99); FRAGMENT RBC FLAG 0 (0-99); HEMATOCRIT 25.9 % (40.0-51.0); HEMOGLOBIN 7.8 g/dL (13.7-17.5); LEFT SHIFT FLG 0 (0-99); LIPEMIA HEMOLYSIS FLAG 80 (0-99); MEAN CELL HEMOGLOBIN 27.8 pg (27.9-34.1); MEAN CELL HEMOGLOBIN CONCENTR. 30.1 g/dL (32.4-36.7); MEAN CELL VOLUME 92.2 fL (81.5-99.8); MEAN PLATELET VOLUME 8.5 fL (8.7-11.7); PLATELET CLUMPS FLAG 10 (0-99); PLATELET COUNT 261 10^3/uL (150-400); RED BLOOD CELL COUNT 2.81 10^6/uL (4.40-6.38)
[2017-01-06 05:18] LABS: RED CELL DISTRIBUTION WIDTH 20.7 % (11.5-15.2)
[2017-01-06 05:26] LABS: ALBUMIN 3.3 g/dL (3.5-5.0); ANION GAP 9 mEq/L (8-16); ASPARTATE AMINOTRANSFERASE 43 IU/L (17-59); BILIRUBIN,TOTAL 0.4 mg/dL (0.1-1.4); CALCIUM 8.8 mg/dL (8.5-10.4); CARBON DIOXIDE 23 mEq/l (22-31); CHLORIDE 107 mEq/L (97-110); CREATININE 0.9 mg/dL (0.7-1.3); GLOMERULAR FILTRATION RATE > 60; GLUCOSE 94 mg/dL (70-100); LACTATE DEHYDROGENASE 1003 IU/L (313-618); MAGNESIUM 2.1 mg/dL (1.6-2.3); POTASSIUM 4.5 mEq/L (3.5-5.2); SODIUM 139 mEq/L (134-144)
[2017-01-06 05:41] LABS: HYPOCHROMIA 2+; MACROCYTES 1+; PLATELET ESTIMATE ADEQUATE (ADEQ); POLYCHROMASIA 1+
[2017-01-06] MEDS: BENZONATATE 100 MG CAP PO SCH ×4 (06:11→20:17)
--- NOTE | 2017-01-06 08:45 | CPEKG ---
Heart Rate: 91 RR Interval: 659 QRSD Interval: 98 QT Interval: 392 QTC Interval: 483 QRS [place]: -52 T Wave [place]: 93 EKG Severity - ABNORMAL ECG - EKG Impression: ACCELERATED JUNCTIONAL RHYTHM EKG Impression: LEFT ANTERIOR FASCICULAR BLOCK EKG Impression: CONSIDER ANTEROSEPTAL INFARCT EKG Impression: BORDERLINE T ABNORMALITIES, LATERAL LEADS EKG Impression: BORDERLINE PROLONGED QT INTERVAL EKG Impression: PREVIOUS ECG WITH FIRST DEGREE AVB Electronically Signed By: Sami Jerez 07-Jan-2017 12:56:50
[2017-01-06] MEDS: lamoTRIgine 100 MG TAB PO SCH ×2 (09:03→20:10)
[2017-01-06] MEDS: CARVEDILOL 6.25 MG TAB PO SCH ×2 (09:03→17:29)
[2017-01-06] MEDS: LISINOPRIL 5 MG TAB PO SCH (09:03)
[2017-01-06] MEDS: PRASUGREL HCL 10 MG TAB PO SCH (09:06)
[2017-01-06] MEDS: CYCLOSPORINE 0.05% 1 EACH BOX EACHEYE SCH ×2 (09:10→20:09)
[2017-01-06] MEDS: KETOROLAC 0.5% 5 ML OPHT.BTL RTEYE SCH ×3 (09:12→23:04)
[2017-01-06] MEDS: guaiFENesin 600 MG TAB.ER PO SCH ×3 (09:14→17:30)
[2017-01-06] MEDS: FERROUS SULFATE 325 MG TAB PO SCH ×2 (09:14→20:10)
[2017-01-06] MEDS: PSYLLIUM METAMUCIL 1 PKT PO SCH (09:14)
[2017-01-06] MEDS: ASPIRIN EC 325 MG TAB PO SCH (09:14)
[2017-01-06] MEDS: FLUTICASONE NASAL 120 SPRAYS/16 GM MDI EACHNARE SCH ×2 (09:14→17:34)
[2017-01-06] MEDS: ALLOPURINOL 300 MG TAB PO SCH (09:15)
--- NOTE | 2017-01-06 10:48 | SOAPPROG ---
SOAP Progress Note Assessment/Plan: BRIEF NOTE After discussion with cardiology and anesthesia, we have elected to defer patient's endoscopic work up. Recent cardiac events make anesthesia at higher risk. In absence of ongoing, clinically significant, blood loss, recommend deferring endoscopic w/u 6-12 weeks. Once convalescent form his recent MA, sedation/anesthesia risks are likely to improve. Meanwhile, recommend supportive care with Fe replacement, and potentially with transfusion, to support Hgb. Please call with any questions. 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
[2017-01-06] MEDS ORDERED: NS 500 ML IV ONE (11:00)
--- NOTE | 2017-01-06 11:07 | SOAPPROG ---
SOAP Progress Note Assessment/Plan: Assessment:1. cad..s/p lad stenting without issues..toleratintg cardiac meds..1st degree av block noted..good urine output post cath 2.anemia...chronic no acute loss..gi w/u postponed due to anesthesia wishes..pt on chronic fe...reschedule anytime form a cardiac standpoint Plan:1. continue meds..home tomorrow from oour standpoint if stable and no new issues 01/06/17 11:03 Subjective: no cv c/o...gi w/u will be delayed secondary..d/w pt he understands to anesthsia issues Objective: Vital Signs Temp Pulse Resp BP Pulse Ox 36.8 C 90 15 133/66 H 90 L 01/06/17 07:48 01/06/17 07:48 01/06/17 07:48 01/06/17 07:48 01/06/17 07:48 Laboratory Results 01/06/17 04:50 01/06/17 04:50 01/05/17 01/06/17 01/07/17 05:59 05:59 05:59 Intake Total 670 1190 Output Total 225 400 500 Balance 445 790 -500 PT 14.9 SEC (12.0-15.0) 01/05/17 04:41 INR 1.17 (0.83-1.16) H 01/05/17 04:41 Physical Exam - Physical Exam Respiratory: lungs clear Cardiac/Chest: normal peripheral pulses, regular rate, rhythm, No edema, No JVD ICD10 Worksheet Patient Problems: Problems Problem Status Onset Acute coronary syndrome Acute Acute renal insufficiency Acute Bimalleolar fracture of right ankle Acute 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
--- NOTE | 2017-01-06 11:08 | GCON ---
[f rep st] CONSULTATION INPATIENT CONSULTATION NOTE. REFERRING PHYSICIAN: Mary Grace Angulo MD REASON FOR CONSULTATION: Anemia. HISTORY OF PRESENT ILLNESS: Briefly, I was asked by Dr. Angulo to see the patient for the evalua tion of iron deficiency anemia. He was admitted to the hospital on 01/04/2017 for the evaluation of chest pain as well as lightheadedness. He was found to have an abnormal troponin. He underwent pe rcutaneous coronary angiography and was noted to have a focal 90% lesion in the proximal LAD. This was stented with a drug-eluting stent. He has been doing well postop. His echocardiogram revealed a new wall motion abnormality relative to prior workup. It is the feeling of his cardiology physici ans that his as yet undiagnosed iron deficiency anemia is contributing to his cardiovascular risk an d potential for AL. Therefore, they have requested an inpatient evaluation of his iron deficiency. The patient denies any evidence of blood loss. He reports no melena, hematemesis, bloody stool. He does not recall precisely when his iron deficiency became apparent. He believes that it has been a number of months. Per the admission and other consultative notes, it appears that he was previousl y recommended to undergo upper and lower endoscopy, but did not do so. ALLERGIES: Erythromycin. OUTPATIENT MEDICATIONS: The patient has a fairly extensive list. Please see the electronic health record. 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 FAMILY HISTORY: Reports no heart disease or colon cancer in his family that he is aware of. His si ster at the age of 89. SOCIAL HISTORY: He lives independently, but was only recently discharged from a custodial [facility]. He has prior tobacco use, but does not currently smoke, drink alcohol, or use drugs. REVIEW OF SYSTEMS: A complete 10-system review was undertaken with the patient and is negative exce pt for those details described in the history of present illness. PHYSICAL EXAM: GENERAL: This is an elderly male in no apparent distress. HEENT: His right pupil is equal, round, reactive. His left eye shows evidence of prior damage. CARDIOVASCULAR: He has reg ular rate and rhythm without murmurs, rubs, or gallops. PULMONARY: Exam reveals clear to auscultat ion bilaterally with normal breathing effort. ABDOMEN: Soft, nontender, with normoactive bowel portillo nds. There is no distention or organomegaly. EXTREMITIES: Show no clubbing, cyanosis, or edema. SKIN: Warm and dry without bruising. NEUROPSYCH: Exam reveals an oriented and appropriate male, sandie goodman, good historian. LABORATORY DATA: Reveals hemoglobin of 7.8, hematocrit of 25.9, platelet count of 261, INR of 1.17. Sodium of 139, potassium of 4.5, chloride of 107, bicarb of 23, BUN of 17, creatinine of 9. The sandie oneil has multiple laboratory tests throughout the medical record. From 2016 until today, his donald tocrit has been between 24 and 27, with 1 outlying reading of 36. In 2015 and prior, his hematocrit s have been normal. Earlier this year, his iron was documented at 15, a ferritin of 19.9, iron sat of 5, and TIBC of 304. IMPRESSION AND RECOMMENDATIONS: The patient has a longstanding, at least many months, iron deficien cy anemia. His low blood counts and hemoglobin may be contributing to his recent worsening cardiova scular health. He has previously been recommended to, but has not undergone, a dedicated GI luminal workup for iron deficiency. At this time, I believe this can be considered. He has a relatively h igh risk related to undergoing endoscopic procedures in the setting of recent AL and potential armstrong e in cardiac function. We will discuss his care with Cardiology and with Anesthesiology in order to determine what is best. Alternatively, we could support his iron-deficiency with blood products, i minal replacement, etc., and organize a luminal workup in 6 to 12 weeks when his cardiovascular health may recover from his recent, small, AL. Meanwhile, I will add celiac disease laboratory testing to his evaluation. The patient can remain n .p.o., for now, pending the coordinated decision related to his risk factors and his need for iron d eficiency workup. /[id number]/MODL
[2017-01-06] MEDS: diphenhydrAMINE 25 MG CAP PO ONE ×2 (11:51→18:53)
--- NOTE | 2017-01-06 15:08 | HOSPPROG ---
Hospitalist Progress Note Assessment/Plan: 89 yo M with hx of CAD and subacute iron deficiency anemia presenting with nstemi # nstemi/acs: S/P stent to LAD. Continue medical management, remains chest pain free. repeat ecg personally reviewed showing first degree av block/sr/ otherwise no change. # subacute iron deficiency anemia: this has been new since October and of unclear etiology. He has not had clear s/s of bleeding, is on oral iron supplementation so has been having dark stools since then. Per GI, defer inpt workup due to anesthesia risks given recent cardiac issues. Will wait 6-12 weeks and have done as outpt unless more urgent indication arises. # first degree av block: previously reviewed with cards, will cont carvedilol # hyphema with left eye blindness: spontaneous bleed in the past, monitor # h/o PE: not on AC as has had issues with bleeding in the past, IVC filter placed as patient had issues with AC due to above # chronic medical issues: copd, htn, gout, stable adrenal mass # dispo: IP status, will need > 48 hours stay for eval/mgmt of above. possible d/c to SNF tomorrow. Subjective: Pt feels well. Denies CP or SOB. No fevers. Eating well. Feels weak. Objective: Vital Signs Temp Pulse Resp BP Pulse Ox 36.9 C 81 21 H 131/70 H 95 01/06/17 11:24 01/06/17 11:24 01/06/17 11:24 01/06/17 11:24 01/06/17 13:00 Laboratory Results 01/06/17 04:50 01/06/17 04:50 01/05/17 01/06/17 01/07/17 05:59 05:59 05:59 Intake Total 670 1190 Output Total 225 400 500 Balance 445 790 -500 PT 14.9 SEC (12.0-15.0) 01/05/17 04:41 INR 1.17 (0.83-1.16) H 01/05/17 04:41 - Physical Exam Constitutional: no apparent distress Eyes: PERRL Ears, Nose, Mouth, Throat: moist mucous membranes Cardiovascular: regular rate and rhythym Respiratory: no respiratory distress Gastrointestinal: normoactive bowel sounds, soft, non-tender abdomen Skin: warm Neurologic: AAOx3 Psychiatric: interacting appropriately ICD10 Worksheet Patient Problems: Problems Problem Status Onset Acute coronary syndrome Acute Acute renal insufficiency Acute Bimalleolar fracture of right ankle Acute 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
[2017-01-06] MEDS: HYDROXYUREA 500 MG CAP PO SCH (17:30)
[2017-01-06] MEDS: SENNOSIDES/DOCUSATE SODIUM TAB PO SCH (17:33)
[2017-01-06] MEDS: MELATONIN 3 MG TAB PO SCH (20:10)
[2017-01-06] MEDS: TAMSULOSIN HCL 0.4 MG CAP PO SCH (20:11)
[2017-01-06] MEDS: PETROLAT,WHT/MIN OIL/SOD CHL 3.5 GM OPHT.OINT EACHEYE SCH (20:13)
[2017-01-07] MEDS: NITROGLYCERIN 0.4 MG BTL SL PRN ×3 (04:37→04:50)
[2017-01-07] MEDS: BENZONATATE 100 MG CAP PO SCH ×3 (04:57→20:22)
[2017-01-07] MEDS: SODIUM CL NASAL 45 ML BTL EACHNARE SCH ×4 (04:57→20:26)
[2017-01-07] MEDS: prednisoLONE ACET 1% 5 ML OPHT.BTL RTEYE SCH ×5 (04:59→20:25)
--- NOTE | 2017-01-07 05:02 | CPEKG ---
Heart Rate: 86 RR Interval: 698 P-R Interval: 245 QRSD Interval: 100 QT Interval: 404 QTC Interval: 484 P [place]: 0 QRS [place]: -45 T Wave [place]: 121 EKG Severity - ABNORMAL ECG - EKG Impression: SINUS RHYTHM EKG Impression: FIRST DEGREE AV BLOCK EKG Impression: LEFT ANTERIOR FASCICULAR BLOCK EKG Impression: CONSIDER ANTEROSEPTAL INFARCT EKG Impression: NONSPECIFIC T ABNORMALITIES, ANT-LAT LEADS EKG Impression: BORDERLINE PROLONGED QT INTERVAL Electronically Signed By: Sami Jerez 07-Jan-2017 20:42:06
[2017-01-07] MEDS: oxyCODONE IR 5 MG TAB PO PRN ×2 (06:34→09:36)
[2017-01-07] MEDS ORDERED: FUROSEMIDE 20 MG/2 ML VIAL IVP ONE ×2 (09:28→17:30)
--- NOTE | 2017-01-07 09:30 | HOSPPROG ---
Hospitalist Progress Note Assessment/Plan: 89 yo M with hx of CAD and subacute iron deficiency anemia presenting with nstemi # nstemi/acs: S/P stent to LAD. Continue medical management. Chest / shoulder pain this am, discussed with cards, who does not suspect cardiac etiology. Rpt EKG without ST elevation or e/o acute ischemia. Query musculoskeletal origin. # subacute iron deficiency anemia: New since October and of unclear etiology. He has not had clear s/s of bleeding, is on oral iron supplementation so has been having dark stools. Per GI, defer inpt workup due to anesthesia risks given recent cardiac issues. GI recommends waiting 6-12 weeks and have outpt endocscopy unless more urgent indication arises. Hgb down to 6.8 this am. -transfuse 1 u prbc's today given hgb <8 with CAD and recent stenting -lasix after transfusion -follow h&h and watch for signs of active bleeding # first degree av block: previously reviewed with cards, will cont carvedilol # hyphema with left eye blindness: spontaneous bleed in the past, monitor # h/o PE: not on AC as has had issues with bleeding in the past, IVC filter in place. # chronic medical issues: copd, htn, gout, stable adrenal mass # dispo: cont inpt, planning for SNF at d/c Subjective: Pt feels weak today, c/o right chest wall / shoulder pain, positional, worse when lying on right side. No fevers/chills. Objective: Vital Signs Temp Pulse Resp BP Pulse Ox 36.7 C 91 12 131/69 H 97 01/07/17 07:34 01/07/17 07:34 01/07/17 07:34 01/07/17 07:34 01/07/17 07:34 Laboratory Results 01/06/17 04:50 01/06/17 04:50 01/06/17 01/07/17 01/08/17 05:59 05:59 05:59 Intake Total 1190 700 Output Total 400 750 Balance 790 -50 PT 14.9 SEC (12.0-15.0) 01/05/17 04:41 INR 1.17 (0.83-1.16) H 01/05/17 04:41 - Physical Exam Constitutional: chronically ill appearing Eyes: PERRL Ears, Nose, Mouth, Throat: moist mucous membranes Cardiovascular: regular rate and rhythym Respiratory: no respiratory distress, clear to auscultation Gastrointestinal: normoactive bowel sounds, soft, non-tender abdomen Skin: warm Musculoskeletal: full muscle strength Neurologic: AAOx3 Psychiatric: interacting appropriately ICD10 Worksheet Patient Problems: Problems Problem Status Onset Acute coronary syndrome Acute Acute renal insufficiency Acute Bimalleolar fracture of right ankle Acute 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
[2017-01-07] MEDS: CARVEDILOL 6.25 MG TAB PO SCH ×2 (09:38→17:35)
--- NOTE | 2017-01-07 09:39 | SOAPPROG ---
[facility] Progress Note Assessment/Plan: Assessment:1. cad..s/p lad stenting without issues..tolerating cardiac meds..1st degree av block noted..good urine output post cath 2.anemia...chronic no acute loss..gi w/u postponed due to anesthesia wishes..pt on chronic fe...reschedule anytime form a cardiac standpoint Plan:1. continue meds..back to snf from our standpoint if stable and no new issues 01/06/17 11:03 01/07/17 09:45 Subjective: pt doing overall well from a cardiac standpoint...no changes today Objective: Vital Signs Temp Pulse Resp BP Pulse Ox 36.7 C 91 12 131/69 H 97 01/07/17 07:34 01/07/17 07:34 01/07/17 07:34 01/07/17 07:34 01/07/17 07:34 Laboratory Results 01/06/17 04:50 01/06/17 04:50 01/06/17 01/07/17 01/08/17 05:59 05:59 05:59 Intake Total 1190 700 Output Total 400 750 Balance 790 -50 PT 14.9 SEC (12.0-15.0) 01/05/17 04:41 INR 1.17 (0.83-1.16) H 01/05/17 04:41 ICD10 Worksheet Patient Problems: Problems Problem Status Onset Chest pain Acute CAD (coronary artery disease) Chronic Diastolic CHF, chronic Chronic Hyphema Acute 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
[2017-01-07] MEDS: ASPIRIN EC 325 MG TAB PO SCH (09:50)
[2017-01-07] MEDS: ALLOPURINOL 300 MG TAB PO SCH (09:50)
[2017-01-07] MEDS: PRASUGREL HCL 10 MG TAB PO SCH (09:50)
[2017-01-07] MEDS: FERROUS SULFATE 325 MG TAB PO SCH ×2 (09:50→20:21)
[2017-01-07] MEDS: LISINOPRIL 5 MG TAB PO SCH (09:50)
[2017-01-07] MEDS: lamoTRIgine 100 MG TAB PO SCH ×2 (09:50→20:22)
[2017-01-07] MEDS: guaiFENesin 600 MG TAB.ER PO SCH ×2 (09:51→17:36)
[2017-01-07] MEDS: PSYLLIUM METAMUCIL 1 PKT PO SCH (09:51)
[2017-01-07] MEDS: KETOROLAC 0.5% 5 ML OPHT.BTL RTEYE SCH ×3 (09:52→20:23)
[2017-01-07] MEDS: FLUTICASONE NASAL 120 SPRAYS/16 GM MDI EACHNARE SCH (09:52)
[2017-01-07] MEDS: CYCLOSPORINE 0.05% 1 EACH BOX EACHEYE SCH ×2 (09:53→20:23)
[2017-01-07] MEDS: PANTOPRAZOLE SODIUM 40 MG TAB PO SCH (11:02)
[2017-01-07] MEDS ORDERED: NS 250 ML IV ONE ×2 (11:23→12:00)
[2017-01-07 12:05] LABS: HEMATOCRIT 22.1 % (40.0-51.0)
[2017-01-07 12:14] LABS: HEMOGLOBIN 6.8 g/dL (13.7-17.5)
[2017-01-07] MEDS: ALBUTEROL 3 ML DEYVIAL IH PRN ×2 (16:19→20:19)
[2017-01-07 16:34] LABS: % IMMATURE GRANULYOCYTES 0.5 % (0.0-1.1); ABSOLUTE IMMATURE GRANULOCYTES 0.04 10^3/uL (0.00-0.10); ADD DIFF? NO; ADD MORPH? YES; ADD SCAN? NO; ATYPICAL LYMPHOCYTE FLAG 0 (0-99); FRAGMENT RBC FLAG 0 (0-99); HEMATOCRIT 24.9 % (40.0-51.0); HEMOGLOBIN 7.7 g/dL (13.7-17.5); LEFT SHIFT FLG 0 (0-99); LIPEMIA HEMOLYSIS FLAG 80 (0-99); MEAN CELL HEMOGLOBIN 28.2 pg (27.9-34.1); MEAN CELL HEMOGLOBIN CONCENTR. 30.9 g/dL (32.4-36.7); MEAN CELL VOLUME 91.2 fL (81.5-99.8); MEAN PLATELET VOLUME 8.2 fL (8.7-11.7); PLATELET CLUMPS FLAG 10 (0-99); PLATELET COUNT 161 10^3/uL (150-400); RED BLOOD CELL COUNT 2.73 10^6/uL (4.40-6.38)
[2017-01-07 16:52] LABS: RED CELL DISTRIBUTION WIDTH 20.2 % (11.5-15.2)
[2017-01-07 17:24] LABS: HYPOCHROMIA 1+; KERATOCYTES 1+; MACROCYTES 1+; PLATELET ESTIMATE ADEQUATE (ADEQ); POLYCHROMASIA 1+
[2017-01-07] MEDS: SENNOSIDES/DOCUSATE SODIUM TAB PO SCH (17:35)
[2017-01-07] MEDS: HYDROXYUREA 500 MG CAP PO SCH (17:36)
[2017-01-07] MEDS: TAMSULOSIN HCL 0.4 MG CAP PO SCH (20:21)
[2017-01-07] MEDS: MELATONIN 3 MG TAB PO SCH (20:22)
[2017-01-07] MEDS: PETROLAT,WHT/MIN OIL/SOD CHL 3.5 GM OPHT.OINT EACHEYE SCH (20:24)
[2017-01-08 05:35] LABS: HEMATOCRIT 23.4 % (40.0-51.0); HEMOGLOBIN 7.1 g/dL (13.7-17.5); MEAN CELL HEMOGLOBIN 27.6 pg (27.9-34.1); MEAN CELL HEMOGLOBIN CONCENTR. 30.3 g/dL (32.4-36.7); MEAN CELL VOLUME 91.1 fL (81.5-99.8); RED BLOOD CELL COUNT 2.57 10^6/uL (4.40-6.38)
[2017-01-08 05:49] LABS: RED CELL DISTRIBUTION WIDTH 20.4 % (11.5-15.2)
[2017-01-08] MEDS: BENZONATATE 100 MG CAP PO SCH ×3 (06:15→21:38)
[2017-01-08] MEDS: prednisoLONE ACET 1% 5 ML OPHT.BTL RTEYE SCH ×5 (06:15→21:41)
[2017-01-08] MEDS: SODIUM CL NASAL 45 ML BTL EACHNARE SCH ×4 (06:26→21:41)
[2017-01-08] MEDS ORDERED: IOPAMIDOL (ISOVUE 370) 100 ML BTL IV ONE (08:33)
[2017-01-08] MEDS: guaiFENesin 600 MG TAB.ER PO SCH ×2 (08:41→17:25)
[2017-01-08] MEDS: ALLOPURINOL 300 MG TAB PO SCH (08:41)
[2017-01-08] MEDS: ASPIRIN EC 325 MG TAB PO SCH (08:41)
[2017-01-08] MEDS: FERROUS SULFATE 325 MG TAB PO SCH ×2 (08:41→21:38)
[2017-01-08] MEDS: CARVEDILOL 6.25 MG TAB PO SCH (08:41)
[2017-01-08] MEDS: lamoTRIgine 100 MG TAB PO SCH ×2 (08:57→21:39)
[2017-01-08] MEDS: PRASUGREL HCL 10 MG TAB PO SCH (08:58)
[2017-01-08] MEDS: LISINOPRIL 5 MG TAB PO SCH (08:58)
[2017-01-08] MEDS: PANTOPRAZOLE SODIUM 40 MG TAB PO SCH (08:58)
[2017-01-08] MEDS ORDERED: CANN-EASE 2 GM TUBE TP ONE (10:46)
--- NOTE | 2017-01-08 11:35 | HOSPPROG ---
Hospitalist Progress Note Assessment/Plan: 89 yo M with hx of CAD and subacute iron deficiency anemia presenting with nstemi # nstemi/acs: S/P stent to LAD. Continue medical management. Chest / shoulder pain intermittently, discussed with cards, who does not suspect cardiac etiology. Rpt EKG without ST elevation or e/o acute ischemia. Query musculoskeletal origin. -reducing dose of coreg and lisinopril due to ongoing hypotension -cont dual antiplatelet therapy, asa/effient -add statin, check lipid status # hypotension: may be related to low hgb, transfusing again today. No fevers, leukocytosis or localizing symptoms to suggest infection. -reduce dose of bp meds as above -prbc's for volume # subacute iron deficiency anemia: New since October, unclear etiology. He has not had clear s/s of bleeding, is on oral iron supplementation so has been having dark stools. Per GI, defer inpt workup due to anesthesia risks given recent cardiac issues. GI recommends waiting 6-12 weeks and have outpt endoscopy unless more urgent indication arises. Hgb continues to trend down, 7.1 this am after 1 u prbc's yesterday -transfuse another 1 u prbc's today given hgb <8 with CAD and recent stenting -lasix after transfusion -follow h&h and watch for signs of active bleeding -may need to re-visit inpt GI eval if he continues to require transfusions # SOB with h/o PE: not on AC as has had issues with bleeding in the past, IVC filter in place. -CTA this am due to complaints of SOB and CP, neg for PE. # Left adrenal mass: needs outpt f/u imaging, some concern for malignancy # first degree av block: previously reviewed with cards, will cont carvedilol # hyphema with left eye blindness: spontaneous bleed in the past, monitor # chronic medical issues: copd, htn, gout, stable adrenal mass # dispo: cont inpt, planning for SNF at d/c Subjective: Pt feels a little better today, up in chair. Complained of being unable to breath this am, continues to have intermittent chest pain which may be positional. Also, some hypotension. Objective: Vital Signs Temp Pulse Resp BP Pulse Ox 36.8 C 83 16 101/51 L 91 L 01/08/17 07:27 01/08/17 07:27 01/08/17 07:27 01/08/17 07:27 01/08/17 07:27 Laboratory Results 01/08/17 03:58 01/06/17 04:50 01/07/17 01/08/17 01/09/17 05:59 05:59 05:59 Intake Total 700 1195 100 Output Total 750 500 100 Balance -50 695 0 PT 14.9 SEC (12.0-15.0) 01/05/17 04:41 INR 1.17 (0.83-1.16) H 01/05/17 04:41 - Physical Exam Constitutional: no apparent distress Eyes: PERRL Ears, Nose, Mouth, Throat: moist mucous membranes Cardiovascular: regular rate and rhythym Respiratory: no respiratory distress, clear to auscultation Gastrointestinal: normoactive bowel sounds, soft, non-tender abdomen Skin: warm Neurologic: AAOx3 Psychiatric: interacting appropriately ICD10 Worksheet Patient Problems: Problems Problem Status Onset Acute coronary syndrome Acute Acute renal insufficiency Acute Bimalleolar fracture of right ankle Acute 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
[2017-01-08] MEDS: PSYLLIUM METAMUCIL 1 PKT PO SCH (11:49)
[2017-01-08] MEDS: KETOROLAC 0.5% 5 ML OPHT.BTL RTEYE SCH ×3 (11:55→21:40)
[2017-01-08] MEDS: FLUTICASONE NASAL 120 SPRAYS/16 GM MDI EACHNARE SCH (11:57)
[2017-01-08] MEDS: CYCLOSPORINE 0.05% 1 EACH BOX EACHEYE SCH ×2 (12:00→21:40)
[2017-01-08] MEDS ORDERED: CARVEDILOL 6.25 MG TAB PO SCH (12:09)
[2017-01-08] MEDS ORDERED: LISINOPRIL 5 MG TAB PO SCH (12:09)
[2017-01-08] MEDS ORDERED: FUROSEMIDE 20 MG/2 ML VIAL IVP ONE ×2 (12:15→17:00)
[2017-01-08 16:31] LABS: HEMATOCRIT 26.6 % (40.0-51.0); HEMOGLOBIN 8.2 g/dL (13.7-17.5)
[2017-01-08] MEDS: SENNOSIDES/DOCUSATE SODIUM TAB PO SCH (17:26)
[2017-01-08] MEDS: HYDROXYUREA 500 MG CAP PO SCH (17:29)
[2017-01-08] MEDS: CARVEDILOL 3.125 MG TAB PO SCH (17:35)
[2017-01-08] MEDS: ATORVASTATIN CALCIUM 20 MG TAB PO SCH (21:38)
[2017-01-08] MEDS: PETROLAT,WHT/MIN OIL/SOD CHL 3.5 GM OPHT.OINT EACHEYE SCH (21:40)
[2017-01-08] MEDS: TAMSULOSIN HCL 0.4 MG CAP PO SCH (21:41)
[2017-01-08] MEDS: MELATONIN 3 MG TAB PO SCH (21:41)
[2017-01-09] MEDS: BENZONATATE 100 MG CAP PO SCH ×3 (04:11→21:06)
[2017-01-09] MEDS: prednisoLONE ACET 1% 5 ML OPHT.BTL RTEYE SCH ×5 (04:12→21:09)
[2017-01-09] MEDS: SODIUM CL NASAL 45 ML BTL EACHNARE SCH ×4 (04:12→23:08)
[2017-01-09 04:24] LABS: HEMATOCRIT 25.4 % (40.0-51.0); HEMOGLOBIN 7.9 g/dL (13.7-17.5)
[2017-01-09 04:46] LABS: ANION GAP 8 mEq/L (8-16); CALCIUM 8.3 mg/dL (8.5-10.4); CARBON DIOXIDE 24 mEq/l (22-31); CHLORIDE 105 mEq/L (97-110); CHOLESTEROL 70 mg/dL (140-220); CHOLESTEROL/HDL RATIO 2.12 RATIO (1.00-4.97); GLOMERULAR FILTRATION RATE > 60; GLUCOSE 100 mg/dL (70-100); HIGH DENSITY LIPOPROTEIN 33 mg/dL (40-65); LDL/HDL RATIO 0.79 RATIO (1.00-3.64); LOW DENSITY LIPOPROTEIN 26 mg/dL (80-100); NON-HIGH DENSITY LIPOPROTEIN 37 mg/dL (90-129); SODIUM 137 mEq/L (134-144); TRIGLYCERIDE 56 mg/dL (40-150); VERY LOW DENSITY LIPOPROTEINS 11 mg/dL (8-25)
[2017-01-09] MEDS ORDERED: PANTOPRAZOLE SODIUM 40 MG in NS 100 ML IV ONE (08:36)
[2017-01-09] MEDS: CARVEDILOL 3.125 MG TAB PO SCH (09:19)
--- NOTE | 2017-01-09 09:23 | SOAPPROG ---
YULISA Progress Note Assessment/Plan: Assessment:1. cad..s/p lad stenting without issues..tolerating cardiac meds...hemodynamcially stable 2.anemia..chronic but now with active gi bleeding..ok to hold effient and asa untill source of bleed is determined Plan:1. continue meds.gi w/u for active bleeding 01/06/17 11:03 01/07/17 09:45 01/09/17 09:21 Subjective: no cv c/o...pt with brb from rectum..has received 2 u ffp Objective: Vital Signs Temp Pulse Resp BP Pulse Ox 36.4 C 84 18 103/61 96 01/09/17 07:15 01/09/17 07:15 01/09/17 07:15 01/09/17 07:15 01/09/17 07:15 Laboratory Results 01/09/17 04:06 01/09/17 04:06 01/08/17 01/09/17 01/10/17 05:59 05:59 05:59 Intake Total 1195 750 Output Total 500 1401 Balance 695 -651 PT 14.9 SEC (12.0-15.0) 01/05/17 04:41 INR 1.17 (0.83-1.16) H 01/05/17 04:41 Physical Exam - Physical Exam Respiratory: lungs clear Cardiac/Chest: systolic murmur ICD10 Worksheet Patient Problems: Problems Problem Status Onset Acute coronary syndrome Acute Acute renal insufficiency Acute Bimalleolar fracture of right ankle Acute 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
[2017-01-09] MEDS: guaiFENesin 600 MG TAB.ER PO SCH ×2 (10:07→17:16)
[2017-01-09] MEDS: FERROUS SULFATE 325 MG TAB PO SCH ×2 (10:07→21:06)
[2017-01-09] MEDS: lamoTRIgine 100 MG TAB PO SCH ×2 (10:07→21:06)
[2017-01-09] MEDS: ALLOPURINOL 300 MG TAB PO SCH (10:07)
[2017-01-09] MEDS: CYCLOSPORINE 0.05% 1 EACH BOX EACHEYE SCH ×2 (10:11→21:09)
[2017-01-09] MEDS: KETOROLAC 0.5% 5 ML OPHT.BTL RTEYE SCH ×3 (10:18→21:09)
[2017-01-09] MEDS: FLUTICASONE NASAL 120 SPRAYS/16 GM MDI EACHNARE SCH (10:19)
[2017-01-09 10:20] LABS: HEMATOCRIT 28.2 % (40.0-51.0); HEMOGLOBIN 8.6 g/dL (13.7-17.5)
[2017-01-09] MEDS: PSYLLIUM METAMUCIL 1 PKT PO SCH (10:21)
--- NOTE | 2017-01-09 10:55 | HOSPPROG ---
Hospitalist Progress Note Assessment/Plan: 89 yo M with hx of CAD and subacute iron deficiency anemia presenting with nstemi # nstemi/acs: S/P stent to LAD. Holding dual anti-plt therapy due to GIB. Not tolerating BB, [place] due to hypotension in setting of GIB, cont to hold these meds for now. -cont statin -resume BB, [place] when tolerable -Hold ASA, Effient until GIB definitely managed # GI bleed: Presented with significant, new Fe def anemia. Inpt w/u initially deferred due to cardiac issues and concern for anesthesia risk. Now actively bleeding, s/p 2 units prbc's. -GI re-consulted, needs to be scoped -holding ASA, Effient -start PPI drip -trend H&H, transfuse to keep hgb 8-9 given recent NSTEMI -clear liquids, scope timing as determined by GI # hypotension: BP down to 60's/40's yesterday, better today after NS bolus and prbc's yesterday. Likely volume related with GI bleed, hastened by BB and [place]. No fevers, leukocytosis or localizing symptoms to suggest infection. -holding BB and [place] for now until hemodynamics improved -prbc's for volume as needed # SOB with h/o PE: not on AC as has had issues with bleeding in the past, IVC filter in place. CTA neg for PE. # Left adrenal mass: needs outpt f/u imaging, some concern for malignancy # first degree av block: previously reviewed with cards, will cont carvedilol # hyphema with left eye blindness: spontaneous bleed in the past, monitor # chronic medical issues: copd, htn, gout, stable adrenal mass # dispo: cont inpt, planning for SNF at d/c Subjective: Pt had problems with hypotension yesterday, improved today. Denies CP or SOB this am. Had large bloody BM this am. Objective: Vital Signs Temp Pulse Resp BP Pulse Ox 36.4 C 84 18 103/61 96 01/09/17 07:15 01/09/17 07:15 01/09/17 07:15 01/09/17 07:15 01/09/17 07:15 Laboratory Results 01/09/17 10:10 01/09/17 04:06 01/08/17 01/09/17 01/10/17 05:59 05:59 05:59 Intake Total 1195 750 Output Total 500 1401 Balance 695 -651 PT 14.9 SEC (12.0-15.0) 01/05/17 04:41 INR 1.17 (0.83-1.16) H 01/05/17 04:41 - Physical Exam Constitutional: no apparent distress Eyes: PERRL Ears, Nose, Mouth, Throat: moist mucous membranes Cardiovascular: regular rate and rhythym Respiratory: no respiratory distress, clear to auscultation Gastrointestinal: normoactive bowel sounds, soft, non-tender abdomen Skin: warm Musculoskeletal: full muscle strength Neurologic: AAOx3 Psychiatric: interacting appropriately ICD10 Worksheet Patient Problems: Problems Problem Status Onset Acute coronary syndrome Acute Acute renal insufficiency Acute Bimalleolar fracture of right ankle Acute 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
[2017-01-09] MEDS: PANTOPRAZOLE SODIUM 80 MG in NS 100 ML IV SCH ×2 (11:12→21:06)
[2017-01-09] MEDS ORDERED: GOLYTELY 4000 ML BTL PO ONE (12:40)
--- NOTE | 2017-01-09 12:44 | SOAPPROG ---
SOAP Progress Note Assessment/Plan: Assessment: GIB: pt with BRBPR today in setting of iron def anemia post stent on anticoagulation. Recommend preceding with evaluation. Overall high risk but benefits out weigh risks. Discussed with pt and he agrees to proceed with EGD and colon Plan: EGD and colon with anesthesia in AM after prep today PPI IV for now Follow H+H Hold Effient 01/09/17 12:41 Subjective: CC BRPRP Pt with new active bleeding no ABD pain, some GERD sxm x 4-5 days Objective: Vital Signs Temp Pulse Resp BP Pulse Ox 37.2 C 81 19 105/54 L 99 01/09/17 12:33 01/09/17 12:33 01/09/17 12:33 01/09/17 12:33 01/09/17 12:33 Laboratory Results 01/09/17 10:10 01/09/17 04:06 01/08/17 01/09/17 01/10/17 05:59 05:59 05:59 Intake Total 1195 750 Output Total 500 1401 Balance 695 -651 PT 14.9 SEC (12.0-15.0) 01/05/17 04:41 INR 1.17 (0.83-1.16) H 01/05/17 04:41 Physical Exam - Physical Exam General Appearance: alert, no apparent distress Respiratory: lungs clear, normal breath sounds Cardiac/Chest: normal peripheral pulses, regular rate, rhythm Abdomen: normal bowel sounds, non-tender, soft ICD10 Worksheet Patient Problems: Problems Problem Status Onset Chest pain Acute CAD (coronary artery disease) Chronic Diastolic CHF, chronic Chronic Hyphema Acute 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
[2017-01-09 16:19] LABS: HEMATOCRIT 27.8 % (40.0-51.0); HEMOGLOBIN 8.4 g/dL (13.7-17.5)
[2017-01-09] MEDS: SENNOSIDES/DOCUSATE SODIUM TAB PO SCH (17:16)
[2017-01-09] MEDS: HYDROXYUREA 500 MG CAP PO SCH (17:16)
[2017-01-09] MEDS: TAMSULOSIN HCL 0.4 MG CAP PO SCH (21:06)
[2017-01-09] MEDS: MELATONIN 3 MG TAB PO SCH (21:06)
[2017-01-09] MEDS: ATORVASTATIN CALCIUM 20 MG TAB PO SCH (21:06)
[2017-01-09] MEDS: PETROLAT,WHT/MIN OIL/SOD CHL 3.5 GM OPHT.OINT EACHEYE SCH (21:12)
[2017-01-09 22:29] LABS: HEMATOCRIT 28.1 % (40.0-51.0); HEMOGLOBIN 8.5 g/dL (13.7-17.5)
[2017-01-10 04:44] LABS: HEMATOCRIT 24.5 % (40.0-51.0); HEMOGLOBIN 7.7 g/dL (13.7-17.5)
[2017-01-10 05:38] LABS: ANION GAP 7 mEq/L (8-16); CALCIUM 8.2 mg/dL (8.5-10.4); CARBON DIOXIDE 25 mEq/l (22-31); CHLORIDE 104 mEq/L (97-110); CREATININE 0.8 mg/dL (0.7-1.3); GLOMERULAR FILTRATION RATE > 60; GLUCOSE 97 mg/dL (70-100); POTASSIUM 3.9 mEq/L (3.5-5.2); SODIUM 136 mEq/L (134-144)
[2017-01-10] MEDS: BENZONATATE 100 MG CAP PO SCH ×3 (05:50→21:31)
[2017-01-10] MEDS: prednisoLONE ACET 1% 5 ML OPHT.BTL RTEYE SCH ×5 (05:52→20:25)
[2017-01-10] MEDS: SODIUM CL NASAL 45 ML BTL EACHNARE SCH ×3 (05:53→18:17)
[2017-01-10] MEDS: PANTOPRAZOLE SODIUM 80 MG in NS 100 ML IV SCH ×2 (05:53→08:05)
[2017-01-10] MEDS: PSYLLIUM METAMUCIL 1 PKT PO SCH (08:40)
[2017-01-10] MEDS: FLUTICASONE NASAL 120 SPRAYS/16 GM MDI EACHNARE SCH (08:43)
[2017-01-10] MEDS: lamoTRIgine 100 MG TAB PO SCH ×2 (08:49→20:02)
[2017-01-10] MEDS: ALLOPURINOL 300 MG TAB PO SCH (08:49)
[2017-01-10] MEDS: guaiFENesin 600 MG TAB.ER PO SCH ×2 (08:52→19:00)
[2017-01-10] MEDS: CYCLOSPORINE 0.05% 1 EACH BOX EACHEYE SCH ×2 (08:52→20:14)
[2017-01-10] MEDS: KETOROLAC 0.5% 5 ML OPHT.BTL RTEYE SCH ×3 (08:53→21:12)
[2017-01-10] MEDS: FERROUS SULFATE 325 MG TAB PO SCH ×2 (08:53→20:02)
[2017-01-10] MEDS ORDERED: PROPOFOL/EMULSION 500 MG/50 ML BOTTLE IV ONE (10:29)
--- NOTE | 2017-01-10 11:15 | SUROPNOTE ---
ANDREW Operative Report - Surgery EGD colon full note dictated EGD: Mod gastritis no bleeding biopsied Colon: poor prep moderate diverticulosis left sided no bleeding small cecal polyps removed Hemorrhoids with oozing A/ Bleeding from hemorrhoids likely worse from Effient. Overall low risk for serious bleeding Treat with PPi OK to change to PO and begin HC SUPP for hemorrhoids Suspect anemia is multifactorial Await biopsy Consider outpt pill capsule endoscopy if not better
--- NOTE | 2017-01-10 11:51 | GPN ---
[f rep st] PROCEDURE NOTE DATE OF PROCEDURE: 01/10/2017 PROCEDURE PERFORMED: Colonoscopy with biopsy. INSTRUMENT USED: Olympus video pediatric colonoscope. MEDICINES GIVEN: IV general per the anesthesiologist. INDICATIONS: The patient is an 89-year-old with anemia and bright red blood with a decline in hemat ocrit, on blood thinners referred for colonoscopy. Prior to procedure, exam performed including aus cultation of heart and lungs within normal limits. Patient's mental status was appropriate. Proced ure was explained including risks of bleeding, perforation, effects of sedation. He gave informed c onsent. FINDINGS: Patient was placed in left lateral decubitus position. Perianal exam was performed with rectal external hemorrhoids with blood on the exam glove. Scope was inserted into the rectum, advan lisandro by direct visualization to the area of the cecum which required some splinting due to looping. The cecum was identified by the presence of ileocecal valve as well as appendiceal orifice, and the confluence of the tenia. From this area, the scope was slowly withdrawn. Of note, the prep was constance ewhat poor throughout, particularly in the right colon. The sigmoid itself was only moderately visu alized because of stool that could not be completely rinsed or removed. A small polyp was seen in t he cecum measuring approximately 4 mm, removed by cold biopsy. There was only a mild amount of bloo d loss; however, it was difficult to evaluate for any AVMs due to the prep or small polyps; however, it is unlikely that any large polyps or mass would be missed. There was moderate degree of diverti culosis involving the sigmoid and descending colon; however, there was no old blood, no clot, no act chanel bleeding seen throughout the colon. Retroflexion was then performed in the rectum and revealed moderate to significant internal and external hemorrhoids. With withdrawing of the scope through he re, I could see some oozing at the external hemorrhoids. The scope was removed from the patient. H e tolerated the procedure well. Time spent approximately 30 minutes. ASSESSMENT: 1. Moderate left-sided diverticulosis; however, without any bleeding or evidence of active bleeding . 2. A small cecal polyp, removed. 3. Significant internal and external hemorrhoids with oozing. This appears to be the source of his bright red blood, likely worse from recent Effient; however, overall this would be low risk for ser ious bleeding. As far as his underlying anemia, it is likely multifactorial. I would recommend trino denis to p.o. PPI today. We will treat his hemorrhoids with hydrocortisone suppositories. Okay to re start Effient but to monitor for bleeding. If his anemia does not improve, we may consider an outpa tient capsule endoscopy to assess for small bowel AVMs. May consider surgical consult if his hemorr hoids continue to bleed. Thank for this consult. /[id number]/MODL
--- NOTE | 2017-01-10 13:08 | HOSPPROG ---
Hospitalist Progress Note Assessment/Plan: 89 yo M with hx of CAD and subacute iron deficiency anemia presenting with nstemi # nstemi/acs: S/P stent to LAD 01/05. DAPT and anti-hypertensives held yesterday due to GI bleeding and hypotension. He remains CP free. -Resume Effient and ASA, ok per GI -resume BB, lower dose today -add back lisinopril if no more hypotension -cont statin # GI bleed: EGD/c-scope today, diverticula present, bleeding from hemorrhoids noted. -change to oral PPI -treat hemorrhoids with HC # hypotension (h/o hypertension): BP down to 60's/40's 01/08, improved after NS bolus and prbc's. Likely volume related with GI bleeding, hastened by BB and [place]. No fevers, leukocytosis or localizing symptoms to suggest infection. -restarted low dose Coreg last night -resume [place] tomorrow if BP tolerates # SOB with h/o PE: not on AC as has had issues with bleeding in the past, IVC filter in place. CTA neg for PE. # Left adrenal mass: needs outpt f/u imaging, some concern for malignancy # first degree av block: previously reviewed with cards, cont carvedilol # hyphema with left eye blindness: spontaneous bleed in the past, monitor # chronic medical issues: copd, htn, gout, stable adrenal mass # dispo: cont inpt, planning for SNF at d/c. likely ready for dc in 1-2 days Subjective: Pt feels better today. No CP or SOB. Denies further rectal bleeding. No N/V or abdominal pain. Appetite good. No complaints today. Objective: Vital Signs Temp Pulse Resp BP Pulse Ox 36.4 C 75 11 L 135/66 H 93 01/10/17 12:25 01/10/17 12:25 01/10/17 12:25 01/10/17 12:25 01/10/17 12:25 Laboratory Results 01/10/17 04:21 01/10/17 04:21 01/09/17 01/10/17 01/11/17 05:59 05:59 05:59 Intake Total 750 2661 500 Output Total 1401 1075 100 Balance -651 1586 400 PT 14.9 SEC (12.0-15.0) 01/05/17 04:41 INR 1.17 (0.83-1.16) H 01/05/17 04:41 - Physical Exam Constitutional: chronically ill appearing Eyes: PERRL Ears, Nose, Mouth, Throat: moist mucous membranes Cardiovascular: regular rate and rhythym Respiratory: no respiratory distress Gastrointestinal: normoactive bowel sounds, soft, non-tender abdomen Skin: warm Musculoskeletal: full muscle strength Psychiatric: interacting appropriately, poor memory ICD10 Worksheet Patient Problems: Problems Problem Status Onset Acute coronary syndrome Acute Acute renal insufficiency Acute Bimalleolar fracture of right ankle Acute 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
--- NOTE | 2017-01-10 13:37 | GPN ---
[f rep st] PROCEDURE NOTE DATE OF PROCEDURE: 01/10/2017 PROCEDURE PERFORMED: Upper endoscopy with biopsy. INSTRUMENT USED: Olympus upper gastroscope. MEDICINES GIVEN: IV general per Anesthesiology. INDICATIONS: Patient is an 89-year-old with ongoing anemia, and now with bright red blood and decli ne in hematocrit. On Effient and aspirin, post stent. Referred for upper and lower endoscopy for e valuation. Prior to procedure, exam was performed including auscultation of the heart and lungs, wi thin normal limits. Patient's mental status was appropriate. Procedure was explained including the risks of bleeding, perforation, or effects of sedation. He gave an informed consent. FINDINGS: He was placed in left lower decubitus position. Medications were given by slow IV titrat ion to achieve adequate conscious sedation. Inserted scope through the bite block in the esophagus. The patient had significant coughing. The scope was removed before even intubated into the signal integrity engineer ior pharynx. He was suctioned, given more sedation, and the scope then passed through the bite bloc k into the esophagus without difficulty. Esophagus had no esophagitis, nor varices. There was a mo derate hiatal hernia. In the stomach, there was moderate diffuse gastropathy, with erythema and constance e granularity. Biopsies were taken. Retroflexion showed also involvement of the more proximal stom ach. The duodenum was normal. Scope was removed from the patient, who tolerated the procedure well . Time spent was approximately 10 minutes. ASSESSMENT: Moderate diffuse gastritis, but without active bleeding. No ulcers. This was biopsied . PLAN: Will proceed with colonoscopy. Recommend PPI. Okay to switch to keep p.o. PPI today. Thank you for this consult. /[id number]/MODL
[2017-01-10] MEDS ORDERED: CLOPIDOGREL BISULFATE 75 MG TAB PO SCH (14:00)
[2017-01-10 16:13] LABS: 2C19S INTERPRETATION See Comments
--- NOTE | 2017-01-10 16:21 | SOAPPROG ---
YULISA Progress Note Assessment/Plan: 1. ACS - Pt presented with an ACS and was treated with PCI of his LAD using a synergy SANTIAGO. He denies further episodes of angina. Course was complicated by the development of a GI bleed and anticoagulation was held. Pt denies symptoms of angina and is now able to resume anticoagulation. --> Will change Effient to plavix and resume asa --> Continue coreg and lipitor 2. Hyperlipidemia - LDL is 26. --> Will decrease lipitor to 10 mg daily 3. HTN - BP well controlled. Continue current therapy. 4. GI - Pt developed a GI bleed on effient and asa. He underwent endoscopy today with moderate diverticulosis and no active bleeding. OK to resume anticoagulation at this time. 01/10/17 16:27 Subjective: Pt with endoscopy demonstrating moderate diverticulosis with no active bleeding. OK to resume anticoagulation. No chest pain No orthopnea or PND Objective: Vital Signs Temp Pulse Resp BP Pulse Ox 36.9 C 94 16 130/66 H 95 01/10/17 15:08 01/10/17 15:08 01/10/17 15:08 01/10/17 15:08 01/10/17 15:08 Laboratory Results 01/10/17 04:21 01/10/17 04:21 01/09/17 01/10/17 01/11/17 05:59 05:59 05:59 Intake Total 750 2661 715 Output Total 1401 1075 800 Balance -651 1586 -85 PT 14.9 SEC (12.0-15.0) 01/05/17 04:41 INR 1.17 (0.83-1.16) H 01/05/17 04:41 Physical Exam - Physical Exam General Appearance: alert, no apparent distress Respiratory: lungs clear Cardiac/Chest: regular rate, rhythm, systolic murmur Abdomen: non-tender, soft Skin: normal color Extremities: No pedal edema Neuro/Psych: alert ICD10 Worksheet Patient Problems: Problems Problem Status Onset Acute coronary syndrome Acute Acute renal insufficiency Acute Bimalleolar fracture of right ankle Acute 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
[2017-01-10] MEDS ORDERED: ATORVASTATIN CALCIUM 20 MG TAB PO SCH (16:25)
[2017-01-10 17:10] LABS: HEMATOCRIT 27.1 % (40.0-51.0); HEMOGLOBIN 8.3 g/dL (13.7-17.5)
[2017-01-10] MEDS: ASPIRIN 325 MG TAB PO SCH ×2 (18:04→19:00)
[2017-01-10] MEDS ORDERED: PRASUGREL HCL 10 MG TAB PO SCH (18:30)
[2017-01-10] MEDS: HYDROXYUREA 500 MG CAP PO SCH (19:00)
[2017-01-10] MEDS: SENNOSIDES/DOCUSATE SODIUM TAB PO SCH (19:00)
[2017-01-10] MEDS: CARVEDILOL 3.125 MG TAB PO SCH (19:00)
[2017-01-10] MEDS: MELATONIN 3 MG TAB PO SCH (20:02)
[2017-01-10] MEDS: TAMSULOSIN HCL 0.4 MG CAP PO SCH (20:02)
[2017-01-10] MEDS: CLOPIDOGREL BISULFATE 75 MG TAB PO SCH (20:11)
[2017-01-10] MEDS: PETROLAT,WHT/MIN OIL/SOD CHL 3.5 GM OPHT.OINT EACHEYE SCH (21:31)
[2017-01-10] MEDS: HYDROCORTISONE 1% CREAM TP SCH (21:31)
[2017-01-11] MEDS: SODIUM CL NASAL 45 ML BTL EACHNARE SCH ×3 (00:16→12:06)
[2017-01-11 03:55] LABS: HEMATOCRIT 24.4 % (40.0-51.0); HEMOGLOBIN 7.6 g/dL (13.7-17.5)
[2017-01-11] MEDS: BENZONATATE 100 MG CAP PO SCH ×2 (05:16→15:04)
[2017-01-11] MEDS: prednisoLONE ACET 1% 5 ML OPHT.BTL RTEYE SCH ×3 (05:18→15:04)
[2017-01-11] MEDS ORDERED: CLOPIDOGREL BISULFATE 75 MG TAB PO SCH (09:00)
[2017-01-11] MEDS ORDERED: PANTOPRAZOLE SODIUM 40 MG TAB PO SCH (09:00)
[2017-01-11] MEDS: CYCLOSPORINE 0.05% 1 EACH BOX EACHEYE SCH (09:05)
[2017-01-11] MEDS: KETOROLAC 0.5% 5 ML OPHT.BTL RTEYE SCH (09:06)
[2017-01-11] MEDS: FLUTICASONE NASAL 120 SPRAYS/16 GM MDI EACHNARE SCH (09:06)
[2017-01-11] MEDS: guaiFENesin 600 MG TAB.ER PO SCH (09:14)
[2017-01-11] MEDS: ASPIRIN 325 MG TAB PO SCH (09:15)
[2017-01-11] MEDS: PSYLLIUM METAMUCIL 1 PKT PO SCH (09:15)
[2017-01-11] MEDS: FERROUS SULFATE 325 MG TAB PO SCH (09:15)
[2017-01-11] MEDS: lamoTRIgine 100 MG TAB PO SCH (09:15)
[2017-01-11] MEDS: CARVEDILOL 3.125 MG TAB PO SCH (09:15)
[2017-01-11] MEDS: CLOPIDOGREL BISULFATE 75 MG TAB PO SCH (09:15)
[2017-01-11] MEDS: ALLOPURINOL 300 MG TAB PO SCH (09:15)
[2017-01-11] MEDS ORDERED: FUROSEMIDE 20 MG/2 ML VIAL IVP ONE ×2 (09:41→15:00)
--- NOTE | 2017-01-11 09:50 | PDIAF ---
- Diagnosis Diagnosis: NSTEMI w/ PCI to LAD, GIB 2/2 diverticulosis Code Status: Full Code - Medication Management Discharge Medications: Medications to Continue on Transfer Acetaminophen [Tylenol 325mg (*)] 650 mg PO Q4HRS PRN #0 tab 11/09/16 [Last Taken 01/04/17 01:55] Allopurinol [Allopurinol 300 MG (RX)] 300 mg PO DAILY #0 tab 11/09/16 [Last Taken 01/04/17] Fluticasone Nasal [Flonase Nasal [place]] 1 sprays EACHNARE DAILY #0 mdi 11/09/16 [Last Taken 01/04/17] Psyllium Seed [Metamucil (*)] 1 each PO DAILY #0 pkt 11/09/16 [Last Taken ] cycloSPORINE 0.05% [Restasis Opht Drops(*)] 1 drop EACHEYE BID #0 box 11/09/16 [ Last Taken 01/04/17] lamoTRIgine [LamICTAL 100 MG (*)] 200 mg PO BID #0 tab 11/09/16 [Last Taken 08/12] Albuterol [Proventil Neb] 3 ml IH Q6HRS PRN 01/04/17 [Last Taken 01/02/17 23:04] Benzonatate [Tessalon Pearles] 100 mg PO Q8HRS 01/04/17 [Last Taken 01/03/17 21: 00] Carboxymethylcellulose 1% [Refresh Celluvisc (*)] 1 drop EACHEYE Q2HRS PRN 01/04 [Last Taken Unknown] Ferrous Sulfate [Ferrous Sulf 325 MG (*)] 325 mg PO BID 01/04/17 [Last Taken 08/12] Herbals/Supplements -Info Only 1 ea PO DAILY 01/04/17 [Last Taken Unknown] Hydroxyurea [Hydrea 500 mg (*)] 500 mg PO DAILY@1700 01/04/17 [Last Taken ] Ketorolac 0.5% [Acular 0.5% Opht Drops (*)] 1 drops RTEYE TID 01/04/17 [Last Taken 01/04/17] Melatonin [Melatonin 3 MG (*)] 3 mg PO HS 01/04/17 [Last Taken 01/03/17] Mineral Oil/Petrolatum,White [Genteal Pm Ointment] 1 bakari EACHEYE HS 01/04/17 [ Last Taken 01/03/17] Nitroglycerin [Nitrostat 0.4 mg (*)] 0.4 mg SL Q5M PRN 01/04/17 [Last Taken 08/12 03:53] Ondansetron Odt [Zofran Odt 4 mg (*)] 4 mg PO Q4HRS PRN 01/04/17 [Last Taken Unknown] Polyethylene Glycol 3350 [Miralax 17 gm (*)] 17 gm PO DAILY PRN 01/04/17 [Last Taken 12/27/16 11:32] Sennosides/Docusate Sodium [Senokot-S] 2 tab PO DAILY@1700 01/04/17 [Last Taken 01/03/17] Sodium Cl Nasal [[place] (*)] 1 spray EACHNARE DAILY@,,,01/04/17 [ Last Taken 01/04/17 11:00] Tamsulosin HCl [Flomax 0.4 MG (*)] 0.4 mg PO HS 01/04/17 [Last Taken 01/03/17] guaiFENesin [Mucinex 600 MG (*)] 1,200 mg PO BID@01/04/17 [Last Taken 08/12] oxyCODONE IR [Oxycodone Ir (*)] 5 mg PO Q3HRS PRN 01/04/17 [Last Taken 01/04/17 04:49] prednisoLONE ACET 1% [Pred Forte 1% (*)] 1 drops RTEYE 5XD@,,,, [Last Taken 01/04/17 10:00] Aspirin EC [Aspirin EC 81 mg (*)] 81 mg PO DAILY #30 tab 01/11/17 [Last Taken Unknown] Atorvastatin Calcium [Lipitor 20 mg (*)] 10 mg PO HS tab 01/11/17 [Last Taken Unknown] Carvedilol [Coreg (*)] 3.125 mg PO BIDMEAL tab 01/11/17 [Last Taken Unknown] Clopidogrel Bisulfate [Plavix (*)] 75 mg PO DAILY tab 01/11/17 [Last Taken Unknown] Hydrocortisone 1% [Hydrocortisone 1% cream (*)] 1 bakari TP BID cream 01/11/17 [ Last Taken Unknown] Pantoprazole Sodium [Protonix 40mg (*)] 40 mg PO DAILY tab 01/11/17 [Last Taken Unknown] Site Lead Antibiotics: NA Discharge Medications: Refer to the Discharge Home Medication list for PRN reason. PICC Care - Routine: N/A - Orders Services needed: Registered Nurse, Master It Help Desk Manager, Physical Therapy, Occupational Therapy Diet Recommendation: cardiac -low fat low salt Weigh Patient: weekly Activity/Weight Bearing Restrictions: as tolerates, boot on R foot at all times when ambulatory - Labs/Radiology CBC Date: 01/14/17 Call or Fax Lab and Imaging Results to: Sheridan Harman - Follow Up Care Current Providers and Referrals: Patient,NotPresent [Unknown] - As per Instructions Sheridan Harman MEN'S SWIM COACH [Certified Nurse Practioner] - 01/17/17 2:45 pm
--- NOTE | 2017-01-11 10:08 | PDIAF ---
- Diagnosis Diagnosis: NSTEMI w/ PCI to LAD, GIB 2/2 diverticulosis Code Status: Full Code - Medication Management Discharge Medications: Medications to Continue on Transfer Acetaminophen [Tylenol 325mg (*)] 650 mg PO Q4HRS PRN #0 tab 11/09/16 [Last Taken 01/04/17 01:55] Allopurinol [Allopurinol 300 MG (RX)] 300 mg PO DAILY #0 tab 11/09/16 [Last Taken 01/04/17] Fluticasone Nasal [Flonase Nasal [place]] 1 sprays EACHNARE DAILY #0 mdi 11/09/16 [Last Taken 01/04/17] Psyllium Seed [Metamucil (*)] 1 each PO DAILY #0 pkt 11/09/16 [Last Taken ] cycloSPORINE 0.05% [Restasis Opht Drops(*)] 1 drop EACHEYE BID #0 box 11/09/16 [ Last Taken 01/04/17] lamoTRIgine [LamICTAL 100 MG (*)] 200 mg PO BID #0 tab 11/09/16 [Last Taken 08/12] Albuterol [Proventil Neb] 3 ml IH Q6HRS PRN 01/04/17 [Last Taken 01/02/17 23:04] Carboxymethylcellulose 1% [Refresh Celluvisc (*)] 1 drop EACHEYE Q2HRS PRN 01/04 [Last Taken Unknown] Ferrous Sulfate [Ferrous Sulf 325 MG (*)] 325 mg PO BID 01/04/17 [Last Taken 08/12] Herbals/Supplements -Info Only 1 ea PO DAILY 01/04/17 [Last Taken Unknown] Hydroxyurea [Hydrea 500 mg (*)] 500 mg PO DAILY@1700 01/04/17 [Last Taken ] Ketorolac 0.5% [Acular 0.5% Opht Drops (*)] 1 drops RTEYE TID 01/04/17 [Last Taken 01/04/17] Melatonin [Melatonin 3 MG (*)] 3 mg PO HS 01/04/17 [Last Taken 01/03/17] Mineral Oil/Petrolatum,White [Genteal Pm Ointment] 1 bakari EACHEYE HS 01/04/17 [ Last Taken 01/03/17] Nitroglycerin [Nitrostat 0.4 mg (*)] 0.4 mg SL Q5M PRN 01/04/17 [Last Taken 08/12 03:53] Ondansetron Odt [Zofran Odt 4 mg (*)] 4 mg PO Q4HRS PRN 01/04/17 [Last Taken Unknown] Polyethylene Glycol 3350 [Miralax 17 gm (*)] 17 gm PO DAILY PRN 01/04/17 [Last Taken 12/27/16 11:32] Sennosides/Docusate Sodium [Senokot-S] 2 tab PO DAILY@1700 01/04/17 [Last Taken 01/03/17] Sodium Cl Nasal [[place] (*)] 1 spray EACHNARE DAILY@,,,01/04/17 [ Last Taken 01/04/17 11:00] Tamsulosin HCl [Flomax 0.4 MG (*)] 0.4 mg PO HS 01/04/17 [Last Taken 01/03/17] guaiFENesin [Mucinex 600 MG (*)] 1,200 mg PO BID@,01/04/17 [Last Taken 08/12] oxyCODONE IR [Oxycodone Ir (*)] 5 mg PO Q3HRS PRN 01/04/17 [Last Taken 01/04/17 04:49] prednisoLONE ACET 1% [Pred Forte 1% (*)] 1 drops RTEYE 5XD@,,,, [Last Taken 01/04/17 10:00] Aspirin EC [Aspirin EC 81 mg (*)] 81 mg PO DAILY #30 tab 01/11/17 [Last Taken Unknown] Atorvastatin Calcium [Lipitor 20 mg (*)] 10 mg PO HS tab 01/11/17 [Last Taken Unknown] Benzonatate [Tessalon Pearles] 100 mg PO Q8HRS PRN #90 cap 01/11/17 [Last Taken Unknown] Carvedilol [Coreg (*)] 3.125 mg PO BIDMEAL tab 01/11/17 [Last Taken Unknown] Clopidogrel Bisulfate [Plavix (*)] 75 mg PO DAILY tab 01/11/17 [Last Taken Unknown] Hydrocortisone 1% [Hydrocortisone 1% cream (*)] 1 bakari TP BID cream 01/11/17 [ Last Taken Unknown] Pantoprazole Sodium [Protonix 40mg (*)] 40 mg PO DAILY tab 01/11/17 [Last Taken Unknown] Substation Superintendent Antibiotics: NA Discharge Medications: Refer to the Discharge Home Medication list for PRN reason. PICC Care - Routine: N/A - Orders Services needed: Registered Nurse, Master Engineering Test Specialist, Physical Therapy, Occupational Therapy Diet Recommendation: cardiac -low fat low salt Weigh Patient: weekly Activity/Weight Bearing Restrictions: as tolerates, boot on R foot at all times when ambulatory - Labs/Radiology CBC Date: 01/14/17 Call or Fax Lab and Imaging Results to: Sheridan Harman - Follow Up Care Current Providers and Referrals: Sheridan Harman CNP [Certified Nurse Practioner] - 01/17/17 2:45 pm Patient,NotPresent [Unknown] - As per Instructions
--- NOTE | 2017-01-11 10:42 | PDIAF ---
- Diagnosis Diagnosis: NSTEMI w/ PCI to LAD, GIB 2/2 diverticulosis Code Status: Full Code - Medication Management Discharge Medications: Medications to Continue on Transfer Acetaminophen [Tylenol 325mg (*)] 650 mg PO Q4HRS PRN #0 tab 11/09/16 [Last Taken 01/04/17 01:55] Allopurinol [Allopurinol 300 MG (RX)] 300 mg PO DAILY #0 tab 11/09/16 [Last Taken 01/04/17] Fluticasone Nasal [Flonase Nasal [place]] 1 sprays EACHNARE DAILY #0 mdi 11/09/16 [Last Taken 01/04/17] Psyllium Seed [Metamucil (*)] 1 each PO DAILY #0 pkt 11/09/16 [Last Taken ] cycloSPORINE 0.05% [Restasis Opht Drops(*)] 1 drop EACHEYE BID #0 box 11/09/16 [ Last Taken 01/04/17] lamoTRIgine [LamICTAL 100 MG (*)] 200 mg PO BID #0 tab 11/09/16 [Last Taken 08/12] Albuterol [Proventil Neb] 3 ml IH Q6HRS PRN 01/04/17 [Last Taken 01/02/17 23:04] Carboxymethylcellulose 1% [Refresh Celluvisc (*)] 1 drop EACHEYE Q2HRS PRN 01/04 [Last Taken Unknown] Ferrous Sulfate [Ferrous Sulf 325 MG (*)] 325 mg PO BID 01/04/17 [Last Taken 08/12] Herbals/Supplements -Info Only 1 ea PO DAILY 01/04/17 [Last Taken Unknown] Hydroxyurea [Hydrea 500 mg (*)] 500 mg PO DAILY@1700 01/04/17 [Last Taken ] Ketorolac 0.5% [Acular 0.5% Opht Drops (*)] 1 drops RTEYE TID 01/04/17 [Last Taken 01/04/17] Melatonin [Melatonin 3 MG (*)] 3 mg PO HS 01/04/17 [Last Taken 01/03/17] Mineral Oil/Petrolatum,White [Genteal Pm Ointment] 1 bakari EACHEYE HS 01/04/17 [ Last Taken 01/03/17] Nitroglycerin [Nitrostat 0.4 mg (*)] 0.4 mg SL Q5M PRN 01/04/17 [Last Taken 08/12 03:53] Ondansetron Odt [Zofran Odt 4 mg (*)] 4 mg PO Q4HRS PRN 01/04/17 [Last Taken Unknown] Polyethylene Glycol 3350 [Miralax 17 gm (*)] 17 gm PO DAILY PRN 01/04/17 [Last Taken 12/27/16 11:32] Sennosides/Docusate Sodium [Senokot-S] 2 tab PO DAILY@1700 01/04/17 [Last Taken 01/03/17] Sodium Cl Nasal [[place] (*)] 1 spray EACHNARE DAILY@,,,01/04/17 [ Last Taken 01/04/17 11:00] Tamsulosin HCl [Flomax 0.4 MG (*)] 0.4 mg PO HS 01/04/17 [Last Taken 01/03/17] guaiFENesin [Mucinex 600 MG (*)] 1,200 mg PO BID@,01/04/17 [Last Taken 08/12] oxyCODONE IR [Oxycodone Ir (*)] 5 mg PO Q3HRS PRN 01/04/17 [Last Taken 01/04/17 04:49] prednisoLONE ACET 1% [Pred Forte 1% (*)] 1 drops RTEYE 5XD@,,,, [Last Taken 01/04/17 10:00] Aspirin EC [Aspirin EC 81 mg (*)] 81 mg PO DAILY #30 tab 01/11/17 [Last Taken Unknown] Atorvastatin Calcium [Lipitor 20 mg (*)] 10 mg PO HS tab 01/11/17 [Last Taken Unknown] Benzonatate [Tessalon Pearles] 100 mg PO Q8HRS PRN #90 cap 01/11/17 [Last Taken Unknown] Carvedilol [Coreg (*)] 3.125 mg PO BIDMEAL tab 01/11/17 [Last Taken Unknown] Clopidogrel Bisulfate [Plavix (*)] 75 mg PO DAILY tab 01/11/17 [Last Taken Unknown] Hydrocortisone 1% [Hydrocortisone 1% cream (*)] 1 bakari TP BID cream 01/11/17 [ Last Taken Unknown] Pantoprazole Sodium [Protonix 40mg (*)] 40 mg PO DAILY tab 01/11/17 [Last Taken Unknown] Tour Consultant Antibiotics: NA Discharge Medications: Refer to the Discharge Home Medication list for PRN reason. PICC Care - Routine: N/A - Orders Services needed: Registered Nurse, Master Trolley Collector (screen for depression) , Physical Therapy, Occupational Therapy Diet Recommendation: cardiac -low fat low salt Weigh Patient: weekly Activity/Weight Bearing Restrictions: as tolerates, boot on R foot at all times when ambulatory - Labs/Radiology CBC Date: 01/14/17 Call or Fax Lab and Imaging Results to: Sheridan Harman - Follow Up Care Current Providers and Referrals: Monique Norwood MD [Medical Doctor] - Sheridan Harman CNP [Certified Nurse Practioner] - 01/17/17 2:45 pm Patient,NotPresent [Unknown] - As per Instructions Karan Connor MD [Medical Doctor] - follow up in 1 week (call to request outpatient psychiatriy consultation)
--- NOTE | 2017-01-11 10:56 | PDDCSUM ---
Discharge Summary Discharge Summary: DISCHARGE SUMMARY FOLLOW-UP ITEMS: Discontinue pantoprazole in 1 month, repeat CBC this Tuesday, arrange outpatient follow-up imaging of left adrenal mass DATE OF ADMISSION: 01/04/17 DATE OF DISCHARGE: 01/11/2017 DISCHARGE DIAGNOSES: 1. Non ST-elevation myocardial infarction, type 1 2. Acute upper gastrointestinal hemorrhage 3. Acute blood loss anemia 4. Acute hypotension 5. Chronic hypertension 6. Left adrenal mass 7. Depressed mood CONSULTATIONS: Cardiology, Gastroenterology PROCEDURES / IMAGING: Upper endoscopy and colonoscopy on 01/10/2017, diverticulosis noted but no active bleeding, PCI with LAD drug-eluting stent placed CHIEF COMPLAINT: Acute chest pain SUBJECTIVE: Patient is feeling well at time of discharge, he is feeling somewhat depressed PHYSICAL EXAM ON DISCHARGE: Systolic blood pressure is 100 -130, heart rate 70-80, afebrile overnight, satting well on room air, lungs are clear to auscultation bilaterally, heart rate a regular with a regular rhythm, 2/6 systolic murmur at the sternum, bowel sounds are present, patient is not tearful, he is engaging, he is not feeling depressed at the time of our evaluation LABS ON DISCHARGE: Hemoglobin 7.6 prior to transfusion HOSPITAL COURSE BY PROBLEM: 1. Non ST-elevation myocardial infarction. Type 1, peak troponin 1.7, secondary to stenosis in the left anterior descending coronary artery, received PCI with drug-eluting stent placed. Patient's stool anti-platelet medications were held in the setting of a GI bleed and his antihypertensives were held in the setting of hypotension. Remained chest pain-free during that time. His beta-eden has been resumed without recurrent hypotension and his aspirin 81 mg and Plavix have been resumed without any subsequent bleeding. Patient should remain on dual anti-platelet medications and follow up with the Cardiology Clinic as scheduled. He will also be continued on Lipitor 10 mg daily. 2. Acute gastrointestinal hemorrhage. Patient experienced an acute GI bleed in the setting of dual anti-platelet therapy and suspected bleeding diverticulum. He underwent upper endoscopy and colonoscopy by Dr. Norwood and bleeding hemorrhoids were noted but no other evidence of active bleeding. He was placed on a proton pump inhibitor and this will be continued for 1 month and then discontinued. He also have a follow-up hemoglobin level this Tuesday. 3. Acute blood loss anemia. Evidenced by decline in his hemoglobin level to less than 8, he is status post 3 units of packed red blood cells and he is receiving 1 unit on the day of discharge. He will have a follow-up hemoglobin level this Tuesday. 4. Acute hypotension. Most likely secondary to a combination of gastrointestinal hemorrhage as well as ongoing use of antihypertensive medications. Had no evidence of infection. His beta-eden and ERIN inhibitor were both held, he received blood and IV fluids, and his blood pressure stabilized. His beta-eden has been reintroduced without any incident, his ERIN-inhibitor will continue to be held. His blood pressure but will be recheck in the cardiology clinic next week. 5. Left adrenal mass. Chronic, noted incidentally, he should have outpatient follow-up imaging to be arranged through primary care provider office. 6. Chronic hypertension. As mentioned above, ERIN-inhibitor held, beta-eden re-initiated, follow blood pressures outpatient. 7. Depressed mood. Patient has a depressed mood, does not currently meet the clinical definition of major depressive disorder, he should have an outpatient psychiatry consultation to be arranged as well as outpatient social work screening for depression. DISCHARGE MEDICATIONS: Please see official discharge medication reconciliation sheet in chart , aspirin 81 mg daily, Plavix 75 mg daily, Coreg, Lipitor, pantoprazole daily for 1 month, iron twice daily. DISCHARGE INSTRUCTIONS: Please follow up with Cardiology Clinic as scheduled, please have an outpatient adrenal imaging studies performed, please have outpatient psychiatry follow-up. TIME SPENT: Greater than 30 minutes were spent on direct patient care, as well as discharge planning and preparation.
[2017-01-11] MEDS: HYDROCORTISONE 1% CREAM TP SCH (15:04)
[2017-01-11 15:07] VITALS: BP 145/79; PULSE 88; RESP 17; TEMP 99.1; O2SAT 93
[2017-01-12 14:20] LABS: CELIAC DISEASE INTERPRETATION See Comments; CELIAC GENE PAIRS PRESENT? Yes; IMMUNOGLOBULIN A CELIAC 193 mg/dL (61 - 356)
== END 2017-01-11 16:32 | DRG 247 ==
LOC: EDUNIT# → F2W 14:46
PROVIDERS: ADMIT Internal Medicine; ATTEND Internal Medicine
DX: I21.4 Non-ST elevation (NSTEMI) myocardial infarction (principal); K92.2 Gastrointestinal hemorrhage, unspecified; D62 Acute posthemorrhagic anemia; J96.11 Chronic respiratory failure with hypoxia; I95.9 Hypotension, unspecified; I10 Essential (primary) hypertension; E27.9 Disorder of adrenal gland, unspecified; K57.90 Diverticulosis of intestine, part unspecified, without perforation or abscess without bleeding; K64.4 Residual hemorrhoidal skin tags; F32.9 Major depressive disorder, single episode, unspecified; I77.1 Stricture of artery; K64.8 Other hemorrhoids; I25.110 Atherosclerotic heart disease of native coronary artery with unstable angina pectoris; H54.42 Blindness, left eye, normal vision right eye; D50.9 Iron deficiency anemia, unspecified; E78.5 Hyperlipidemia, unspecified; M10.9 Gout, unspecified; I44.0 Atrioventricular block, first degree; J44.9 Chronic obstructive pulmonary disease, unspecified; D12.0 Benign neoplasm of cecum; K29.50 Unspecified chronic gastritis without bleeding; Z95.5 Presence of coronary angioplasty implant and graft; Z86.711 Personal history of pulmonary embolism; Z86.718 Personal history of other venous thrombosis and embolism; Z85.46 Personal history of malignant neoplasm of prostate; Z87.891 Personal history of nicotine dependence
CPT/HCPCS: 81225-90; 82784-90; 83516-90; 85520-90; 97110-GP; 97116-GP; 97162-GP; 97166-GO; 97530-GO; 97530-GP; 97535-GO; C1725; C1760; C1769; C1874; C1887; C9600; J0583; J1644; J2250; J2704; J3010; P9016; P9040; Q9967

== ENCOUNTER 2017-02-17 11:16 | Inpatient (IN) | payer OTHER ==
--- NOTE | 2017-02-17 12:04 | CPEKG ---
Heart Rate: 99 RR Interval: 606 QRSD Interval: 90 QT Interval: 336 QTC Interval: 432 QRS Conyers: -47 T Wave Conyers: 102 EKG Severity - ABNORMAL ECG - EKG Impression: ATRIAL FIBRILLATION, V-RATE 90-107 EKG Impression: LAD, CONSIDER LAFB OR INFERIOR INFARCT EKG Impression: NONSPECIFIC T ABNORMALITIES, LATERAL LEADS Electronically Signed By: Jennifer Meadows 18-Feb-2017 07:28:00
[2017-02-17 12:30] LABS: ABSOLUTE NRBC COUNT 0.02 10^3/uL (0-0.01); ADD DIFF? YES; ADD MORPH? YES; ATYPICAL LYMPHOCYTE FLAG 0 (0-99); FRAGMENT RBC FLAG 20 (0-99); HEMATOCRIT 28.4 % (40.0-51.0); LIPEMIA HEMOLYSIS FLAG 80 (0-99); MEAN CELL HEMOGLOBIN 29.4 pg (27.9-34.1); MEAN CELL HEMOGLOBIN CONCENTR. 31.7 g/dL (32.4-36.7); MEAN CELL VOLUME 92.8 fL (81.5-99.8); MEAN PLATELET VOLUME 8.6 fL (8.7-11.7); NRBC-AUTO% 0.1 % (0.0-0.2); PLATELET CLUMPS FLAG 0 (0-99); PLATELET COUNT 201 10^3/uL (150-400); RED BLOOD CELL COUNT 3.06 10^6/uL (4.40-6.38)
[2017-02-17 12:33] LABS: LEFT SHIFT FLG 170 (0-99); RED CELL DISTRIBUTION WIDTH 20.3 % (11.5-15.2)
[2017-02-17 12:34] LABS: ADD SCAN? NO
[2017-02-17 12:39] LABS: ANION GAP 11 mEq/L (8-16); CALCIUM 8.1 mg/dL (8.5-10.4); CARBON DIOXIDE 21 mEq/l (22-31); CHLORIDE 108 mEq/L (97-110); CREATININE 1.5 mg/dL (0.7-1.3); GLOMERULAR FILTRATION RATE 44; GLUCOSE 100 mg/dL (70-100); POTASSIUM 3.8 mEq/L (3.5-5.2); SODIUM 140 mEq/L (134-144)
[2017-02-17 12:51] LABS: TROPONIN I 0.048 ng/mL (0-0.034)
[2017-02-17 12:52] LABS: MACROCYTES 2+; MICROCYTES 2+; PLATELET ESTIMATE ADEQUATE (ADEQ)
--- NOTE | 2017-02-17 13:39 | EDPHY ---
H & P Stated Complaint: Increased weakness and lethargy Time Seen by Provider: 02/17/17 12:25 HPI/ROS: CHIEF COMPLAINT: Weakness and confusion HISTORY OF PRESENT ILLNESS: The patient is referred to the emergency department for evaluation of weakness and confusion. The patient reportedly has been treated recently for urinary tract infection this was diagnosed 2 days ago. The patient received a single IM dose of antibiotics and was supposed to start an unknown oral antibiotic today. In the emergency department, the patient is unable to provide much history. His daughter tells me his symptoms have been increasing over the past several weeks. He has had a fairly complicated past medical history the following a ankle fracture he sustained in October. The patient has a history of a known adrenal malignancy which is currently being followed as an outpatient by Urology. The patient is unable to provide significant history in the ED. He does complain of abdominal pain. The patient also has complaints of dysuria. REVIEW OF SYSTEMS: A comprehensive 10 point review of systems is otherwise negative aside from elements mentioned in the history of present illness. Source: Patient - Personal History Current Tetanus/Diphtheria Vaccine: Yes Tetanus Vaccine Date: UNKNOWN - Medical/Surgical History Hx Asthma: No Hx Chronic Respiratory Disease: No Hx Diabetes: Yes Hx Cardiac Disease: Yes Hx Renal Disease: No Hx Cirrhosis: No Hx Alcoholism: No Hx HIV/AIDS: No Hx Splenectomy or Spleen Trauma: No Other PMH: CAD with stent to circ 2007, R ankle fx 2016, L eye blindness, R eye hyphema, Phil Jolene syndrome, PE/DVT, IVC filter placement, gout, meningioma resection, seizure disorder, HTN, HLD, COPD noc O2 2L/min, osteoarthritis, peripheral neuropathy, prostate CA trx radiation seeds, BHP. - Social History Smoking Status: Former smoker - Physical Exam Exam: General Appearance: Elderly male, deconditioned, no acute distress Eyes: Pupils equal and round no pallor or injection ENT, Mouth: Dry mucous membranes Respiratory: There are no retractions, lungs are clear to auscultation Cardiovascular: Regular rate and rhythm Gastrointestinal: Generalized abdominal tenderness to palpation, normal bowel sounds, no peritoneal signs Neurological: Moves all 4 extremities with 5/5 strength, alert and oriented times name and place, cranial nerves grossly intact Skin: Warm and dry, no rashes Musculoskeletal: Neck is supple nontender Extremities: symmetrical, full range of motion Constitutional: Initial Vital Signs Temperature (C) 37.6 C 02/17/17 11:37 Heart Rate 88 02/17/17 11:37 Respiratory Rate 16 02/17/17 11:37 Blood Pressure 98/63 L 02/17/17 11:37 O2 Sat (%) 95 02/17/17 11:37 O2 Delivery Mode Nasal Cannula O2 (L/minute) 2 Allergies/Adverse Reactions: erythromycin base [From E-Mycin] Allergy (Intermediate, Verified 01/04/17 12:10) Diarrhea Home Medications: Medication Instructions Recorded Acetaminophen [Tylenol 325mg (*)] 650 mg PO Q4H PRN MDD 3GM IN 24 02/17/17 HOURS Albuterol Sulfate [ALBUTEROL 1.25 mg IH Q6H PRN 02/17/17 SULFATE 1.25 MG/3 ML] Allopurinol [Allopurinol 300 MG 300 mg PO DAILY 02/17/17 (RX)] Aspirin EC [Aspirin EC 81 mg (*)] 81 mg PO DAILY 02/17/17 Atorvastatin Calcium [Lipitor 10 10 mg PO HS 02/17/17 mg (*)] Benzonatate [Tessalon Pearles (RX)] 100 mg PO TID PRN 02/17/17 Calcium Carbonate [Tums 500MG (*)] 500 mg PO BID PRN 02/17/17 Carboxymethylcellulos/Glycerin 1 ml EACHEYE Q2H PRN 02/17/17 [Refresh Optive Eye Drops] Carvedilol [Coreg (*)] 3.125 mg PO BIDMEAL 02/17/17 Clopidogrel Bisulfate [Plavix (*)] 75 mg PO DAILY 02/17/17 Ferrous Sulfate [Ferrous Sulf 325 325 mg PO BID 02/17/17 MG (*)] Herbals/Supplements -Info Only 1 ea PO DAILY 02/17/17 Hydrocortisone 1% [Hydrocortisone 1 bakari TP BID 02/17/17 1% cream (*)] Hydroxyurea [Hydrea 500 mg (*)] 500 mg PO DAILY@12 02/17/17 Ketorolac 0.5% [Acular 0.5% Opht 1 drops RTEYE TID 02/17/17 Drops (*)] Melatonin [Melatonin 3 MG (*)] 3 mg PO HS 02/17/17 Metoprolol Tartrate [Lopressor 50 50 mg PO BID PRN 02/17/17 mg (*)] Mineral Oil/Petrolatum,White 1 bakari EACHEYE HS 02/17/17 [Genteal Pm Ointment] Nitroglycerin [Nitrostat 0.4 mg 0.4 mg SL AD PRN 02/17/17 (*)] Ondansetron Odt [Zofran Odt 4 mg 4 mg PO Q4 PRN 02/17/17 (*)] Polyethylene Glycol 3350 [Miralax 17 gm PO DAILY PRN 02/17/17 17 gm (*)] Sennosides/Docusate Sodium 2 each PO DAILY@12 PRN 02/17/17 [Senna-S Tablet] Tamsulosin HCl [Flomax 0.4 MG (*)] 0.4 mg PO HS 02/17/17 cycloSPORINE 0.05% [Restasis Opht 1 drop EACHEYE BID 02/17/17 Drops(*)] guaiFENesin [Mucinex 600 MG (*)] 1,200 mg PO BID PRN 02/17/17 lamoTRIgine [Lamictal] 200 mg PO BID 02/17/17 levOFLOXACIN [levAQUIN (*)] 250 mg PO DAILY 02/17/17 oxyCODONE IR [Oxycodone Ir (*)] 5 mg PO Q3H PRN 02/17/17 prednisoLONE ACET 1% [Pred Forte 1 drops RTEYE 5XD 02/17/17 1% (*)] Medical Decision Making - Diagnostics Imaging Results: Chest x-ray PA lateral: Images reviewed by myself and discussed with radiologist, negative for acute infiltrate. CT abdomen pelvis with IV contrast: Changes consistent with a diffuse colitis or noted. Possible left lower lobe infiltrate appreciated on CT scan. ED Course/Re-evaluation: The patient presents to the ED with increasing weakness, confusion, leukocytosis and evidence of colitis noted on his CT scan. I reviewed the results of the patient's prior hospitalizations and discharge summaries. I obtained collateral information from his daughter. The patient will require admission to the hospital. He has evidence of colitis noted on his CT scan. This certainly could represent underlying Clostridium difficile colitis although the patient has not had diarrhea. The patient's urinalysis currently demonstrates no evidence of an obvious infection. The patient did have blood cultures obtained in the emergency department. He is noted to have a fairly significant leukocytosis. Consultation was made with Dr. Hicks from the hospitalist service who will admit the patient. Differential Diagnosis: Differential diagnosis considered includes urinary tract infection, pneumonia, colitis, peritonitis, appendicitis, perforation, obstruction, dehydration, renal failure, metabolic abnormality - Data Points Medications Given: Discontinued Medications Sodium Chloride (Ns) 1,000 mls @ 0 mls/hr IV ONCE ONE PRN Reason: Wide Open Stop: 02/17/17 13:56 Last Admin: 02/17/17 14:27 Dose: 1,000 mls Sodium Chloride (Ns) 1,000 mls @ 0 mls/hr IV ONCE ONE PRN Reason: Wide Open Stop: 02/17/17 13:56 Last Admin: 02/17/17 14:40 Dose: 1,000 mls Departure - Departure Disposition: [facility] In[facility] Acute Clinical Impression: Dehydration, Colitis, Diastolic CHF, chronic, CAD (coronary artery disease) Condition: Fair
[2017-02-17] MEDS ORDERED: NS 1,000 ML IV ONE ×2 (13:55)
[2017-02-17 15:37] LABS: COLOR AMBER; LEUKOCYTE ESTERASE,URINE NEGATIVE (NEGATIVE); NITRITE,URINE NEGATIVE (NEGATIVE)
[2017-02-17 15:40] LABS: MUCUS TRACE /lpf (NONE-1+)
[2017-02-17] MEDS ORDERED: POLYETHYLENE GLYCOL 3350 17 GM PKT PO PRN (15:42)
[2017-02-17] MEDS ORDERED: BENZONATATE 100 MG CAP PO PRN (15:42)
[2017-02-17] MEDS ORDERED: ONDANSETRON 4 MG/2 ML VIAL IVP PRN (15:48)
[2017-02-17] MEDS ORDERED: ONDANSETRON DISINTEGRATING 4 MG TAB PO PRN (15:48)
--- NOTE | 2017-02-17 17:14 | GHP ---
[f rep st] HISTORY AND PHYSICAL DATE OF ADMISSION: 02/17/2017 CHIEF COMPLAINT: Weakness. HISTORY OF PRESENT ILLNESS: This is an 89-year-old male with multiple medical problems. He was hos pitalized in December of this year with acute SD and prior to that he had an ankle fracture. He lives at [facility]. In early January, he was diagnosed with urinary tract infection and given antibiotics. He has been slowly declining over the last couple weeks with increasing weakness and over the last d ay or two has worsened. He does admit to a chronic cough which has worsened, also, in the last week , mostly nonproductive. He was also complaining of some abdominal discomfort. He has not had any d iarrhea. He was diagnosed with urinary tract infection 2 days ago and was given an IM dose of proba mitchell ceftriaxone and started on Levaquin. He has not seemed to be improved from that. He denies any chest pain or shortness of breath. No lower extremity edema. REVIEW OF SYSTEMS: A 10-point review of systems was obtained; other than stated above, was negative . PAST MEDICAL HISTORY: 1. History of coronary artery disease, status post stenting in December this year. 2. GI bleeding secondary to possibly hemorrhoidal oozing. 3. 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 4. Chronic anemia. 5. COPD. 6. Chronic hypoxic respiratory failure. 7. Gout. 8. Hypertension. 9. History of meningioma. 10. History of prostate cancer. 11. History of known adrenal mass. 12. Blindness. FAMILY HISTORY: Both parents are . SOCIAL HISTORY: Was at [facility]. No current smoking or alcohol. PHYSICAL EXAMINATION: VITAL SIGNS: Afebrile. Blood pressure is 113/62, heart rate 80, oxygen satu ration 96% on room air. GENERAL: Patient is chronically ill appearing, not really that conversive, but no apparent distress. HEENT: Dry mucous membranes. NECK: Supple. No thyromegaly. LUNGS: Good effort and clear to auscultation bilaterally. CARDIOVASCULAR: Regular rate and rhythm. No mu rmurs, rubs, or gallops. ABDOMEN: Positive bowel sounds. Soft. Some mild diffuse lower tendernes s. EXTREMITIES: No clubbing, cyanosis, or edema. SKIN: Without rash. Warm, dry, intact. NEURO: Alert and oriented x3. Moving all 4 extremities equally. PSYCHIATRIC: Normal mood and affect. LABORATORY DATA: White blood cell count is elevated at 33,000, hemoglobin 9. Sodium 140, potassium 3.8, BUN is elevated at 47, creatinine 1.5 over baseline of 0.8. Troponin is 0.048 and BNP is 5,[address] scan of the abdomen and pelvis shows proximal and distal colonic wall thickening with pericol onic stranding suggestive of colitis, as well as a large left adrenal mass. This most likely appear s to be malignant and increased left basilar consolidation which could be pneumonia or atelectasis. UA did not show urinary tract infection. ASSESSMENT: This is an 89-year-old male with multiple medical problems presenting with weakness and failure to thrive. 1. Leukocytosis with weakness and colitis on CT scan. Due to patient's multiple hospitalizations i n the past, as well as recent antibiotic usage, I am highly suspicious of Clostridium difficile coli tis, especially with how high his white count is, along with a normal lactate and vital signs. He i s not having diarrhea, but we will check a gastrointestinal pathogen panel. I am going to empirical ly treat with vancomycin for now. 2. Possible urinary tract infection. Patient's urine is fairly clear right now. Due to his coliti s, I am going to hold off on antibiotics. 3. Possible left lower lobe pneumonia. Again, oxygenation appears to be stable and, although he do es have a cough, I am going to hold off on antibiotics currently. 4. History of coronary artery disease. He does have some mild troponin elevation which I think is probably due to dehydration, some strain. We will trend his troponin in the morning. We will germaine nue Plavix and Coreg. 5. Acute renal failure. Again, most likely due to dehydration. We will give IV fluids. 6. Code status: The patient's Ashley MOLST form says that he is a full code. ADMISSION: Patient will be admitted under full admission status. Case was discussed with ER steve currie. Old records reviewed and summarized in HPI. /[id number]/MODL
[2017-02-17] MEDS ORDERED: CARBOXYMETHYLCELLULOSE 0.5% 0.4 ML DROPERETTE EACHEYE PRN (17:39)
[2017-02-17] MEDS ORDERED: ALBUTEROL 3 ML DEYVIAL IH PRN (17:45)
[2017-02-17] MEDS: VANCOMYCIN 125 MG/2.5 ML UDL PO SCH ×2 (17:45→20:07)
[2017-02-17] MEDS: NS 1,000 ML IV SCH (17:50)
[2017-02-17] MEDS: CARVEDILOL 3.125 MG TAB PO SCH (18:02)
[2017-02-17] MEDS: KETOROLAC 0.5% 5 ML OPHT.BTL RTEYE SCH ×2 (19:53→20:12)
[2017-02-17] MEDS: prednisoLONE ACET 1% 5 ML OPHT.BTL RTEYE SCH ×2 (19:53→20:12)
[2017-02-17] MEDS: ATORVASTATIN CALCIUM 10 MG TAB PO SCH (20:07)
[2017-02-17] MEDS: MELATONIN 3 MG TAB PO SCH (20:07)
[2017-02-17] MEDS: lamoTRIgine 100 MG TAB PO SCH (20:07)
[2017-02-17] MEDS: TAMSULOSIN HCL 0.4 MG CAP PO SCH (20:07)
[2017-02-17] MEDS: HYDROCORTISONE 1% CREAM TP SCH (20:12)
[2017-02-17] MEDS: CYCLOSPORINE 0.05% 1 EACH BOX EACHEYE SCH (22:15)
[2017-02-18] MEDS: ACETAMINOPHEN 325 MG TAB PO PRN ×2 (00:23→21:38)
[2017-02-18] MEDS: oxyCODONE IR 5 MG TAB PO PRN ×2 (00:23→21:38)
[2017-02-18 05:22] LABS: ABSOLUTE NRBC COUNT 0.02 10^3/uL (0-0.01); ADD DIFF? YES; ADD MORPH? YES; ATYPICAL LYMPHOCYTE FLAG 20 (0-99); FRAGMENT RBC FLAG 20 (0-99); HEMOGLOBIN 8.3 g/dL (13.7-17.5); LIPEMIA HEMOLYSIS FLAG 80 (0-99); MEAN CELL HEMOGLOBIN 28.8 pg (27.9-34.1); MEAN CELL HEMOGLOBIN CONCENTR. 30.7 g/dL (32.4-36.7); MEAN CELL VOLUME 93.8 fL (81.5-99.8); MEAN PLATELET VOLUME 8.4 fL (8.7-11.7); NRBC-AUTO% 0.1 % (0.0-0.2); PLATELET CLUMPS FLAG 0 (0-99); PLATELET COUNT 167 10^3/uL (150-400); RED BLOOD CELL COUNT 2.88 10^6/uL (4.40-6.38)
[2017-02-18] MEDS: prednisoLONE ACET 1% 5 ML OPHT.BTL RTEYE SCH ×5 (05:31→21:40)
[2017-02-18 05:32] LABS: ADD SCAN? NO; LEFT SHIFT FLG 300 (0-99); RED CELL DISTRIBUTION WIDTH 20.4 % (11.5-15.2)
[2017-02-18] MEDS: NS 1,000 ML IV SCH (05:32)
[2017-02-18] MEDS: VANCOMYCIN 125 MG/2.5 ML UDL PO SCH ×4 (05:32→21:38)
[2017-02-18 05:39] LABS: ALANINE AMINOTRANSFERASE 36 IU/L (21-72); ALBUMIN 1.9 g/dL (3.5-5.0); ALKALINE PHOSPHATASE 197 IU/L (38-126); ANION GAP 7 mEq/L (8-16); ASPARTATE AMINOTRANSFERASE 49 IU/L (17-59); BILIRUBIN,TOTAL 0.5 mg/dL (0.1-1.4); CALCIUM 7.7 mg/dL (8.5-10.4); CARBON DIOXIDE 20 mEq/l (22-31); CHLORIDE 113 mEq/L (97-110); CREATININE 1.1 mg/dL (0.7-1.3); GLOMERULAR FILTRATION RATE > 60; GLUCOSE 95 mg/dL (70-100); POTASSIUM 3.6 mEq/L (3.5-5.2); SODIUM 140 mEq/L (134-144); TOTAL PROTEIN 4.2 g/dL (6.3-8.2)
[2017-02-18 06:27] LABS: HYPOCHROMIA 2+; POLYCHROMASIA 1+
[2017-02-18 06:28] LABS: MACROCYTES 1+; PLATELET ESTIMATE ADEQUATE (ADEQ)
[2017-02-18] MEDS: lamoTRIgine 100 MG TAB PO SCH ×2 (09:31→21:38)
[2017-02-18] MEDS: CLOPIDOGREL BISULFATE 75 MG TAB PO SCH (09:31)
[2017-02-18] MEDS: ALLOPURINOL 300 MG TAB PO SCH (09:31)
[2017-02-18] MEDS: CARVEDILOL 3.125 MG TAB PO SCH ×2 (09:31→18:39)
[2017-02-18] MEDS: ENOXAPARIN 30 MG/0.3 ML SYR SC SCH (09:31)
[2017-02-18] MEDS: ASPIRIN EC 81 MG TAB PO SCH (09:31)
[2017-02-18] MEDS: KETOROLAC 0.5% 5 ML OPHT.BTL RTEYE SCH ×3 (09:32→21:40)
[2017-02-18] MEDS: HYDROCORTISONE 1% CREAM TP SCH ×3 (09:34→21:41)
[2017-02-18] MEDS: CYCLOSPORINE 0.05% 1 EACH BOX EACHEYE SCH ×2 (09:39→21:41)
--- NOTE | 2017-02-18 10:34 | HOSPPROG ---
Hospitalist Progress Note Assessment/Plan: #Severe sepsis: concern for C diff with recent abx. GI PCR pending. I talked with [facility] staff. Vanc PO. Add IV Flagyl and Vanc enema. Repeat lactate normal. #Colitis: concern for C diff with recent abx use and high white count. Increased abd pain now. Stat AXR without colonic distension #Hypotension: responded IVFs. Lactate normal #Indeterminate trop: suspect demand, dehydration. No CP/SOB. EGK negative for ischemia #CAD: recent LAD stent December 2016. Plavix, statin, BB, ASA #DIONI: improving with IVFs #Metabolic acidosis: due to dehydration #Goals: I have detailed conversation with daughter (Sabrina) on the phone about the severity of current illness. I detailed scenarios including vasopressors, surgery. At this point she would want to take less invasive treatment like medications and no invasive procedures such surgery. I had same conversation with patient he agreed. Also addressed code status, now DNR. If any clinically deteriorates, then would call her as I have appointed her med proxy since he is confused. Critical care time spent: 60min bedside with patient, discussing goals/ treatment with daughter and reviewing labs. Subjective: c/o abd pain. Incontinent of urine Objective: Vital Signs Temp Pulse Resp BP Pulse Ox 36.4 C 92 18 114/51 L 94 02/18/17 08:04 02/18/17 08:04 02/18/17 08:04 02/18/17 08:04 02/18/17 08:04 Laboratory Results 02/18/17 04:50 02/18/17 04:50 02/17/17 02/18/17 02/19/17 05:59 05:59 05:59 Intake Total 2074 Balance 2074 - Physical Exam Constitutional: chronically ill appearing, uncomfortable, other (very pale) Eyes: other (blind) Ears, Nose, Mouth, Throat: dry mucous membranes, hard of hearing Cardiovascular: regular rate and rhythym Respiratory: no respiratory distress Gastrointestinal: distension (quiet BS. 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
--- NOTE | 2017-02-18 10:35 | WOCRNPDOC ---
WOCRN Advanced Assessment Note - Skin Integrity Problem, Advanced Assess Coccyx Dressing Type: Open to Air Exudate Amount: Scant Exudate Color: Reddish/Yellow Exudate Characteristic(s): Serosanguinous Fay Wound Tissue: Blanching, Erythema, Denuded Fay Wound Swelling: Mild Wound Bed Color: Red Wound Bed Constitution: Smooth Tissue Site Odor: None Site Measurement - Head-to-Toe Length X Width X Depth (cm): 3.1cmx0.4cmx0.1cm Pressure Injury Present on Admit: Yes (Uncertain if this is PI or ITD at this time) Skin Integrity Problem Comment: Linear, fissure-like wound along patient's coccyx, consistent in appearance with intertriginous dermatitis r/t excessive moisture. Wound is shallow, w/ smooth tissue noted throughout, and bled when wiped during assessment. Due to wound's location over coccyx, I am reluctant to r/o pressure injury at this time. Pressure injury prevention measures initiated as a precaution, including TAPS, turns q2, and Accu-max pump. Will have nursing apply Clear Zinc to help mitigate damage to skin from moisture. Wound care will reassess Wednesday 02/21.
[2017-02-18] MEDS ORDERED: SENNOSIDES/DOCUSATE SODIUM TAB PO PRN (12:00)
[2017-02-18] MEDS ORDERED: NS 500 ML IV ONE (12:26)
[2017-02-18] MEDS: HYDROXYUREA 500 MG CAP PO SCH (12:36)
[2017-02-18] MEDS ORDERED: NS 1,000 ML IV ONE ×2 (13:53→14:01)
[2017-02-18] MEDS ORDERED: HYDROmorphONE/DILAUDID 1 MG/ML SYR IVP PRN (14:22)
[2017-02-18] MEDS ORDERED: NS 1,000 ML IV SCH (17:30)
[2017-02-18] MEDS: SODIUM CHLORIDE PR SCH (17:44)
[2017-02-18] MEDS: VANCOMYCIN PR SCH (17:44)
[2017-02-18] MEDS: MELATONIN 3 MG TAB PO SCH (21:38)
[2017-02-18] MEDS: TAMSULOSIN HCL 0.4 MG CAP PO SCH (21:38)
[2017-02-18] MEDS: ATORVASTATIN CALCIUM 10 MG TAB PO SCH (21:38)
[2017-02-19] MEDS: SODIUM CHLORIDE PR SCH ×4 (00:23→17:57)
[2017-02-19] MEDS: VANCOMYCIN PR SCH ×4 (00:23→17:57)
[2017-02-19] MEDS: prednisoLONE ACET 1% 5 ML OPHT.BTL RTEYE SCH ×5 (05:20→19:49)
[2017-02-19] MEDS: VANCOMYCIN 125 MG/2.5 ML UDL PO SCH ×4 (05:20→22:20)
[2017-02-19 05:23] LABS: HEMATOCRIT 29.2 % (40.0-51.0); HEMOGLOBIN 9.1 g/dL (13.7-17.5); MEAN CELL HEMOGLOBIN 29.4 pg (27.9-34.1); MEAN CELL HEMOGLOBIN CONCENTR. 31.2 g/dL (32.4-36.7); MEAN CELL VOLUME 94.5 fL (81.5-99.8); RED BLOOD CELL COUNT 3.09 10^6/uL (4.40-6.38)
[2017-02-19 05:25] LABS: RED CELL DISTRIBUTION WIDTH 20.9 % (11.5-15.2)
[2017-02-19 05:49] LABS: ANION GAP 8 mEq/L (8-16); CALCIUM 7.8 mg/dL (8.5-10.4); CARBON DIOXIDE 19 mEq/l (22-31); CHLORIDE 115 mEq/L (97-110); GLOMERULAR FILTRATION RATE > 60; GLUCOSE 104 mg/dL (70-100); POTASSIUM 3.4 mEq/L (3.5-5.2); SODIUM 142 mEq/L (134-144)
[2017-02-19] MEDS: ENOXAPARIN 30 MG/0.3 ML SYR SC SCH (10:59)
[2017-02-19] MEDS: ASPIRIN EC 81 MG TAB PO SCH (11:00)
[2017-02-19] MEDS: CLOPIDOGREL BISULFATE 75 MG TAB PO SCH (11:00)
[2017-02-19] MEDS: lamoTRIgine 100 MG TAB PO SCH ×2 (11:00→21:43)
[2017-02-19] MEDS: HYDROXYUREA 500 MG CAP PO SCH ×2 (11:00→13:54)
[2017-02-19] MEDS: CARVEDILOL 3.125 MG TAB PO SCH (11:03)
[2017-02-19] MEDS: ALLOPURINOL 300 MG TAB PO SCH (11:03)
[2017-02-19] MEDS: KETOROLAC 0.5% 5 ML OPHT.BTL RTEYE SCH ×3 (11:04→19:49)
[2017-02-19] MEDS: CYCLOSPORINE 0.05% 1 EACH BOX EACHEYE SCH ×2 (11:04→19:49)
--- NOTE | 2017-02-19 12:36 | HOSPPROG ---
Hospitalist Progress Note Assessment/Plan: #Severe sepsis: C diff colitis. Normal lactate, responding IVFs. Triple-therapy with IV Flagyl and Vanc enema. Repeat lactate normal. #C diff colitis: high-concern that he's not stooling. Cont current abx. Abd pain and exam improved today. AXR yesterday stable. #Hypotension: responded IVFs. Lactate normal. Hold BB, Flomax #Indeterminate trop: suspect demand, dehydration. No CP/SOB. EGK negative for ischemia #CAD: recent LAD stent December 2016. Plavix, statin, BB, ASA #DIONI: improving with IVFs #Metabolic acidosis: due to dehydration #Goals: again spoke with daughter (Sabrina). She agrees with medical management at this time. Would be okay for ICU and pressors if needs, but no invasive procedures such surgery. He is now DNR, she is his med proxy Subjective: less abd pain. No appetite Objective: Vital Signs Temp Pulse Resp BP Pulse Ox 36.4 C 79 18 99/63 L 95 02/19/17 04:00 02/19/17 08:00 02/19/17 08:00 02/19/17 08:00 02/19/17 08:00 Microbiology 02/18/17 18:05 Gastrointestinal Tract Panel (PCR) - Final Stool Clostridium Difficile Detected Laboratory Results 02/19/17 04:55 02/19/17 04:55 02/18/17 02/19/17 02/20/17 05:59 05:59 05:59 Intake Total 2074 Balance 2074 - Physical Exam Constitutional: no apparent distress Eyes: PERRL Ears, Nose, Mouth, Throat: moist mucous membranes ICD10 Worksheet Patient Problems: Problems Problem Status Onset Colitis Acute Dehydration Acute CAD (coronary artery disease) Chronic Diastolic CHF, chronic Chronic Acute coronary syndrome Acute Acute renal insufficiency Acute Bimalleolar fracture of right ankle 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
[2017-02-19] MEDS ORDERED: ALTEPLASE 2 MG VIAL IVP PRN (13:25)
[2017-02-19] MEDS ORDERED: NOREPINEPHRINE/NS 500 ML IV SCH (14:00)
[2017-02-19] MEDS ORDERED: VASOPRESSIN/DEXTROSE 250 ML IV SCH (14:00)
[2017-02-19] MEDS: POTASSIUM Cl (KCl) 100 ML IV SCH ×3 (15:10→19:47)
[2017-02-19] MEDS ORDERED: NS 1,000 ML IV SCH (17:15)
[2017-02-19] MEDS ORDERED: POTASSIUM Cl (KCl) 10 MEQ/100 ML BAG IV ONE (19:44)
[2017-02-19] MEDS: HYDROCORTISONE 1% CREAM TP SCH (19:49)
[2017-02-19] MEDS: ATORVASTATIN CALCIUM 10 MG TAB PO SCH (21:42)
[2017-02-19] MEDS: MELATONIN 3 MG TAB PO SCH (21:46)
[2017-02-20] MEDS: VANCOMYCIN PR SCH ×5 (00:53→23:55)
[2017-02-20] MEDS: SODIUM CHLORIDE PR SCH ×5 (00:53→23:55)
[2017-02-20] MEDS: VANCOMYCIN 125 MG/2.5 ML UDL PO SCH ×4 (05:39→19:54)
[2017-02-20] MEDS: prednisoLONE ACET 1% 5 ML OPHT.BTL RTEYE SCH ×5 (05:40→20:04)
[2017-02-20 08:43] LABS: HEMOGLOBIN 8.8 g/dL (13.7-17.5); MEAN CELL HEMOGLOBIN 29.1 pg (27.9-34.1); MEAN CELL HEMOGLOBIN CONCENTR. 31.4 g/dL (32.4-36.7); MEAN CELL VOLUME 92.7 fL (81.5-99.8); RED BLOOD CELL COUNT 3.02 10^6/uL (4.40-6.38)
[2017-02-20 09:11] LABS: ANION GAP 10 mEq/L (8-16); CALCIUM 8.1 mg/dL (8.5-10.4); CARBON DIOXIDE 18 mEq/l (22-31); CHLORIDE 118 mEq/L (97-110); GLOMERULAR FILTRATION RATE > 60; GLUCOSE 95 mg/dL (70-100); POTASSIUM 3.7 mEq/L (3.5-5.2); SODIUM 146 mEq/L (134-144)
[2017-02-20] MEDS: ASPIRIN 81 MG CHEWABLE TAB PO SCH (09:22)
[2017-02-20] MEDS: CLOPIDOGREL BISULFATE 75 MG TAB PO SCH (09:22)
[2017-02-20] MEDS: lamoTRIgine 100 MG TAB PO SCH ×2 (09:23→19:57)
[2017-02-20] MEDS: ALLOPURINOL 300 MG TAB PO SCH (09:23)
[2017-02-20] MEDS: ENOXAPARIN 30 MG/0.3 ML SYR SC SCH (09:23)
[2017-02-20] MEDS: HYDROCORTISONE 1% CREAM TP SCH ×2 (09:24→20:04)
[2017-02-20] MEDS: CYCLOSPORINE 0.05% 1 EACH BOX EACHEYE SCH ×2 (09:26→19:55)
[2017-02-20] MEDS: KETOROLAC 0.5% 5 ML OPHT.BTL RTEYE SCH ×3 (09:33→20:04)
[2017-02-20] MEDS: HYDROXYUREA 500 MG CAP PO SCH (12:05)
--- NOTE | 2017-02-20 15:38 | HOSPPROG ---
Hospitalist Progress Note Assessment/Plan: #Severe sepsis: C diff colitis. BPs improved.Normal lactate. Triple-therapy with IV Flagyl and Vanc enema. Repeat lactate normal. #C diff colitis: less abdominal pain. Cont current abx. #Hypotension: resolved with IVFs. Lactate normal. Hold BB, Flomax #Indeterminate trop: suspect demand, dehydration. No CP/SOB. EGK negative for ischemia #CAD: recent LAD stent December 2016. Plavix, statin, BB, ASA #DIONI: improving with IVFs #hypernatremia: change to 1/2NS #Metabolic acidosis: due to starvation ketoacidosis/dehydration #Diet: not eating much, encourage PO. Will have to discuss enteral feeding with daughter. Add D5 #DVt ppx: Lovenox #Disp: inpt admission with severe sepsis Subjective: less abd pain Objective: Vital Signs Temp Pulse Resp BP Pulse Ox 36.6 C 107 H 20 105/56 L 95 02/20/17 11:37 02/20/17 11:37 02/20/17 11:37 02/20/17 11:37 02/20/17 11:37 Laboratory Results 02/20/17 08:28 02/20/17 08:28 02/19/17 02/20/17 02/21/17 05:59 05:59 05:59 Intake Total 1000 Output Total 600 Balance 400 - Physical Exam Constitutional: chronically ill appearing, other (very pale) Eyes: other (blind) Ears, Nose, Mouth, Throat: moist mucous membranes Cardiovascular: regular rate and rhythym Respiratory: no respiratory distress, reduced air movement (crackles at bases) Gastrointestinal: normoactive bowel sounds, other (quiet BS) Genitourinary: no bladder fullness Musculoskeletal: generalized weakness Neurologic: AAOx3 Psychiatric: other ICD10 Worksheet Patient Problems: Problems Problem Status Onset Colitis Acute Dehydration Acute CAD (coronary artery disease) Chronic Diastolic CHF, chronic Chronic Acute coronary syndrome Acute Acute renal insufficiency Acute Bimalleolar fracture of right ankle 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
[2017-02-20] MEDS: D5W 1/2 NS 1,000 ML IV SCH (16:28)
[2017-02-20] MEDS: ACETAMINOPHEN 325 MG TAB PO PRN (19:56)
[2017-02-20] MEDS: MELATONIN 3 MG TAB PO SCH (19:57)
[2017-02-20] MEDS: ATORVASTATIN CALCIUM 10 MG TAB PO SCH (19:57)
[2017-02-21] MEDS: SODIUM CHLORIDE PR SCH ×2 (05:09→13:43)
[2017-02-21] MEDS: D5W 1/2 NS 1,000 ML IV SCH (05:09)
[2017-02-21] MEDS: VANCOMYCIN PR SCH ×2 (05:09→13:43)
[2017-02-21] MEDS: VANCOMYCIN 125 MG/2.5 ML UDL PO SCH ×2 (05:10→12:33)
[2017-02-21] MEDS: prednisoLONE ACET 1% 5 ML OPHT.BTL RTEYE SCH ×3 (05:10→15:21)
[2017-02-21 05:46] LABS: HEMATOCRIT 28.7 % (40.0-51.0); MEAN CELL HEMOGLOBIN 28.8 pg (27.9-34.1); MEAN CELL HEMOGLOBIN CONCENTR. 31.4 g/dL (32.4-36.7); RED BLOOD CELL COUNT 3.12 10^6/uL (4.40-6.38)
[2017-02-21 05:47] LABS: RED CELL DISTRIBUTION WIDTH 21.2 % (11.5-15.2)
[2017-02-21 05:58] LABS: ANION GAP 7 mEq/L (8-16); CALCIUM 8.1 mg/dL (8.5-10.4); CARBON DIOXIDE 20 mEq/l (22-31); CHLORIDE 119 mEq/L (97-110); CREATININE 0.8 mg/dL (0.7-1.3); GLOMERULAR FILTRATION RATE > 60; GLUCOSE 129 mg/dL (70-100); POTASSIUM 3.3 mEq/L (3.5-5.2); SODIUM 146 mEq/L (134-144)
[2017-02-21] MEDS: ALLOPURINOL 300 MG TAB PO SCH (08:28)
[2017-02-21] MEDS: ASPIRIN 81 MG CHEWABLE TAB PO SCH (08:28)
[2017-02-21] MEDS: ENOXAPARIN 30 MG/0.3 ML SYR SC SCH (08:28)
[2017-02-21] MEDS: lamoTRIgine 100 MG TAB PO SCH ×2 (08:28→21:46)
[2017-02-21] MEDS: CLOPIDOGREL BISULFATE 75 MG TAB PO SCH (08:28)
[2017-02-21] MEDS: CYCLOSPORINE 0.05% 1 EACH BOX EACHEYE SCH ×2 (08:29→21:45)
[2017-02-21] MEDS: HYDROCORTISONE 1% CREAM TP SCH (08:29)
[2017-02-21] MEDS: KETOROLAC 0.5% 5 ML OPHT.BTL RTEYE SCH (08:30)
--- NOTE | 2017-02-21 08:48 | HOSPPROG ---
Hospitalist Progress Note Assessment/Plan: #Severe sepsis: C diff colitis. BPs improved.Normal lactate. Triple-therapy with IV Flagyl and Vanc enema. Repeat lactate normal. #Leukocytosis: improving on abx #CAD #C diff #Hypervolemic hyponatremia #Acute ald pain #Symptom management: IV dilaudid, Haldol/ativan for anxiety, scopalamine for secretions Goals: I met with daughters, Krystal and Sabrina. Patient is not tolerating treatments. They wanted to trial tube feeds, but he did not tolerate placing tube. They want to pursue comfort measures and hospice. [place] to evaluate this afternoon. Stop all medications, labs, vitals that are not contributing to comfort. Time spent on visit: 75 min in which 60 min counseling daughters on goals, hospice, remaining time coordinating hospice evaluation Subjective: did not tolerate feeding tube placement Objective: Vital Signs Temp Pulse Resp BP Pulse Ox 36.7 C 90 16 118/73 97 02/21/17 04:00 02/21/17 04:00 02/21/17 04:00 02/21/17 04:00 02/21/17 04:00 Laboratory Results 02/21/17 05:20 02/21/17 05:20 02/20/17 02/21/17 02/22/17 05:59 05:59 05:59 Intake Total 1000 200 Output Total 600 300 Balance 400 -100 - Physical Exam Constitutional: chronically ill appearing, uncomfortable, other (pallor, moaning ) Eyes: PERRL Ears, Nose, Mouth, Throat: dry mucous membranes, other (open-mouth breathing) Cardiovascular: regular rate and rhythym, edema (mild edema of hands, UEs) Respiratory: reduced air movement, other (crackles at bases) Gastrointestinal: other (tinkling bowel sounds. Min pain with palpation) Skin: other (pale, cool) Musculoskeletal: generalized weakness Neurologic: other (moaning. 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
[2017-02-21] MEDS: HYDROXYUREA 500 MG CAP PO SCH (12:35)
[2017-02-21] MEDS ORDERED: ONDANSETRON 4 MG/2 ML VIAL IVP PRN (14:11)
[2017-02-21] MEDS ORDERED: PROMETHAZINE HCL 25 MG/ML INJ IVP PRN (14:11)
[2017-02-21] MEDS ORDERED: HALOPERIDOL LACT 5 MG/ML INJ IVP PRN (14:11)
[2017-02-21] MEDS ORDERED: GLYCOPYRROLATE 0.2 MG/1 ML VIAL IVP/IM PRN (14:11)
[2017-02-21] MEDS ORDERED: SCOPOLAMINE HYDROBROMIDE 1.5 MG PATCH TD PRN (14:11)
[2017-02-21] MEDS: HYDROmorphONE/DILAUDID 1 MG/ML SYR IVP PRN (14:30)
[2017-02-21] MEDS: LORazepam 2 MG/ML INJ IVP PRN (21:45)
[2017-02-21] MEDS: MELATONIN 3 MG TAB PO SCH (21:47)
[2017-02-22] MEDS: LORazepam 2 MG/ML INJ IVP PRN ×3 (04:02→12:52)
[2017-02-22] MEDS: HYDROmorphONE/DILAUDID 1 MG/ML SYR IVP PRN ×2 (10:11→12:51)
[2017-02-22 12:00] VITALS: BP 163/52; PULSE 79; RESP 20; TEMP 98; O2SAT 92
--- NOTE | 2017-02-22 12:19 | PDIAF ---
- Diagnosis Diagnosis: Severe Sepsis, C. Diff colitis, DIONI Code Status: Do Not Resuscitate - Medication Management Discharge Medications: Medications to Continue on Transfer Albuterol Sulfate [ALBUTEROL SULFATE 1.25 MG/3 ML] 1.25 mg IH Q6H PRN 02/17/17 [ Last Taken Unknown] Carboxymethylcellulos/Glycerin [Refresh Optive Eye Drops] 1 ml EACHEYE Q2H PRN 02/17/17 [Last Taken Unknown] Hydrocortisone 1% [Hydrocortisone 1% cream (*)] 1 bakari TP BID 02/17/17 [Last Taken Unknown] Ketorolac 0.5% [Acular 0.5% Opht Drops (*)] 1 drops RTEYE TID 02/17/17 [Last Taken Unknown] Mineral Oil/Petrolatum,White [Genteal Pm Ointment] 1 bakari EACHEYE HS 02/17/17 [ Last Taken Unknown] Tamsulosin HCl [Flomax 0.4 MG (*)] 0.4 mg PO HS 02/17/17 [Last Taken Unknown] cycloSPORINE 0.05% [Restasis Opht Drops(*)] 1 drop EACHEYE BID 02/17/17 [Last Taken Unknown] prednisoLONE ACET 1% [Pred Forte 1% (*)] 1 drops RTEYE 5XD 02/17/17 [Last Taken Unknown] HYDROmorphone HCL [Dilaudid] 0.1 - 1 mg IVP Q2 PRN #0 syr 02/22/17 [Last Taken Unknown] LORazepam [Ativan inj 2 mg/ml (*)] 0.5 - 1 mg IVP Q2H PRN #0 inj 02/22/17 [Last Taken Unknown] Ondansetron HCl Pf [Zofran 4 mg Inj (*)] 4 mg IVP Q4HRS PRN #0 vial 02/22/17 [ Last Taken Unknown] Promethazine HCl [Phenergan Injection] 25 mg IVP Q6HRS PRN #0 inj 02/22/17 [ Last Taken Unknown] Scopolamine Hydrobromide [Transderm-Scop] 1.5 mg TD Q3D PRN #0 patch 02/22/17 [ Last Taken Unknown] cycloSPORINE 0.05% [Restasis Opht Drops(*)] 1 drop EACHEYE BID box 02/22/17 [ Last Taken Unknown] metroNIDAZOLE 250 MG/NACL [Flagyl 250 mg (Premix) (*)] 500 mg IV Q8 #32 bag [Last Taken Unknown] Longterm Antibiotics: Metronidazole 500mg IV q8h Dry Primer Powder Blender Antibiotic Stop Date: 03/04/17 Discharge Medications: Refer to the Discharge Home Medication list for PRN reason. PICC Care - Routine: Yes - Orders Services needed: Registered Nurse Oxygen: 2L NC Diet Recommendation: other (comfort swabs) - Follow Up Care Current Providers and Referrals: Elisabeth Maguire MD [Primary Care Provider] - As per Instructions
[2017-02-22] MEDS: lamoTRIgine 100 MG TAB PO SCH (12:28)
--- NOTE | 2017-02-22 16:17 | PDDCSUM ---
Discharge Summary Discharge Summary: DISCHARGE SUMMARY FOLLOW-UP ITEMS: Pain management DATE OF ADMISSION: 02/17/2017 DATE OF DISCHARGE: 02/22/2017 DISCHARGE DIAGNOSES: 1. Severe sepsis 2. C diff colitis 3. Chronic coronary artery disease 4. Acute hyponatremia 5. Chronic hypoxic respiratory failure 6. Acute kidney injury CONSULTATIONS: Hospice PROCEDURES / IMAGING: None CHIEF COMPLAINT: Cough, weakness SUBJECTIVE: Patient is feeling reasonably comfortable at time of discharge, occasionally he has burst of pain PHYSICAL EXAM ON DISCHARGE: Systolic blood pressure is 120, heart rate 90, afebrile, verbally responsive to voice, lethargic but arousable, cachectic and chronically ill-appearing LABS ON DISCHARGE: None HOSPITAL COURSE BY PROBLEM: 1. Severe sepsis. Evidenced by tachycardia, significant leukocytosis, clear source of infection, evidence of end-organ failure notably acute kidney injury, resulting in autonomic dysregulation in the setting of infection, meeting all sepsis-2 criteria. Patient received empiric IV fluids and antibiotics for his C diff source. His leukocytosis began to improve but the patient function deteriorated, becoming less cognitively responsive and the decision was made to pursue comfort measures at the inpatient hospice facility. 2. C difficile colitis. Severe, with white blood cell count greater than 30,000 , acute kidney injury, mental status decline and physical weakness. Patient will continue to receive empiric IV metronidazole to mitigate discomfort of severe diarrhea. He is not currently tolerating oral intake so he will not placed on vancomycin oral Flagyl. 3. Chronic hypoxic respiratory failure. Patient was continued on home supplemental oxygen 4. Acute kidney injury. Most likely secondary to hypovolemia in the setting of severe sepsis. He received IV fluids and his acute kidney injury did resolve. 5. Coronary artery disease. Chronic, patient's home medications will be discontinued as they do not have any additional palliative benefit at this time. 6. Acute hyponatremia. Hypovolemic, secondary to infection, responded to IV normal saline. DISCHARGE MEDICATIONS: Please see official discharge medication reconciliation sheet in chart , Dilaudid and Ativan IV as needed for symptom control, Flagyl 500 mg IV q.8 hours. DISCHARGE INSTRUCTIONS: Patient will be discharged to the inpatient hospice facility at this time. TIME SPENT: Greater than 30 minutes were spent on direct patient care, as well as discharge planning and preparation.
== END 2017-02-22 13:15 | disposition hospice, home (50) | DRG 872 ==
LOC: EDUNIT# → F3E 17:19
PROVIDERS: ADMIT Internal Medicine; ATTEND Internal Medicine
PROC: 02HV33Z Insertion of Infusion Device into Superior Vena Cava, Percutaneous Approach (ICD-10-PCS; principal; 2017-02-19)
DX: A41.89 Other specified sepsis (principal); A04.7 Enterocolitis due to Clostridium difficile; N17.9 Acute kidney failure, unspecified; E87.2 Acidosis; I50.32 Chronic diastolic (congestive) heart failure; J96.11 Chronic respiratory failure with hypoxia; J44.9 Chronic obstructive pulmonary disease, unspecified; I25.10 Atherosclerotic heart disease of native coronary artery without angina pectoris; E87.1 Hypo-osmolality and hyponatremia; Z51.5 Encounter for palliative care; Z66 Do not resuscitate; Z99.81 Dependence on supplemental oxygen; Z85.46 Personal history of malignant neoplasm of prostate
CPT/HCPCS: 92610-GN; 97162-GP; 97166-GO; 97530-GO; 97530-GP; C1751; G8978-GP-CN; G8980-GP-CM; G8980-GP-CN; G8987-GO-CM; G8988-GO-CL; G8996-GN-CJ; G8997-GN-CI; J1170; J1650; J2060